=== PATIENT | female | born 1945 | race Caucasian/White ===

== ENCOUNTER 2017-11-04 08:00 | Observation (INO) ==
[2017-11-04 08:40] VITALS: BMI 40.9
[2017-11-04 09:06] VITALS: RESP 16
[2017-11-04] MEDS ORDERED: POLYETHYL GLYCOL 3350 17gm PACKET PO SCH (09:15)
--- NOTE | 2017-11-04 09:26 | Cardiology History & Physical ---
History of Present Illness Chief complaint: A Fib HPI: Meka is a 72 year old female who is well known to Dr. Bhatia with a history of CAD with stent to Cx in July of this year, PAD, Carotid stenosis, HTN, HLD, and DM, type II and recent Holter showed SR, SB, ST, HR 50-110s, frequent PACs, couplets, triplets and runs of A Fib with HR up to 140s. She is admitted for observation for antiarrhythmic therapy on Amiodarone today. Review of Systems - Constitutional Constitutional: Absent: chills, fatigue, fever(s) - EENMT Eyes: Absent: change in vision Balance: Absent: vertigo Mouth/Throat: Absent: sore throat - Cardiovascular Cardiovascular: Absent: chest pain, palpitations, syncope, dyspnea on exertion Vascular: Absent: pedal edema - Respiratory Respiratory: Absent: cough - Gastrointestinal Gastrointestinal: Absent: abdominal pain, diarrhea, nausea, vomiting - Genitourinary Genitourinary: Absent: dysuria - Integumentary/Breasts Integumentary: Absent: rash - Neurological Neurological: Absent: dizziness - Endocrine Endocrine: Absent: palpitations PFSH Patient Stated Medical History Migraine Yes: NO RECENTLY Peripheral Neuropathy Yes: BOTTOM OF FEET Transient Ischemic Attacks ( Yes TIA) Cataracts Yes: L. EYE STILL HAS CATARACTS Glaucoma Yes Hearing Loss Yes Angina Yes: chest tightness, NOT AFTER STENT PLACEMENT Cardiac Arrhythmia Yes: at. fib. 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 Coronary Stent 07/2017 Family History: Father - [place], age 54 Mother - Undefined heart disease - Social History Smoking status: Never smoker Substance use type: does not use Alcohol intake frequency: does not drink Household members: none Current occupational status: employed Current residence: Apartment/Private Home Medications Home Medications Medication Instructions Recorded Confirmed Type Atorvastatin [Lipitor] 80 mg PO HS #0 03/15/12 11/04/17 History Insulin Glargine,Hum.rec.anlog 40 u SQ 1130,2330 #0 03/15/12 11/04/17 History [Lantus] Levothyroxine Sodium [Synthroid] 75 mcg PO DAILY #0 03/15/12 11/04/17 History Allopurinol [Zyloprim] 1 tab PO 2330 06/01/17 11/04/17 History Calcitriol [Rocaltrol] 1 cap PO QMWF 06/01/17 11/04/17 History Dabigatran [Pradaxa] 1 cap PO 1130,2330 06/01/17 11/04/17 History PEG 3350 17gm PACKET [Miralax] 1 unit PO 3XW 06/01/17 11/04/17 History Cholecalciferol (Vitamin D3) 1 cap PO 1500 08/10/17 11/04/17 History [Vitamin D3] Isosorbide Mononitrate ER [Imdur] 30 mg PO DAILY 08/10/17 11/04/17 History Mupirocin Ointment [Bactroban 1 applicatio TOP DAILY PRN 08/12/17 11/04/17 History Ointmment] Torsemide 10 mg PO DAILY 08/20/17 11/04/17 History Humalog KwikPen (insulin lispro) 25 unit SQ TIDWM 40 Days ml 08/27/17 11/04/17 History 100 unit/mL SQ PEN Tylenol Arthritis 650 mg 650 mg PO Q8H PRN 08/27/17 11/03/17 History tablet,extended release ferrous sulfate 325 mg (65 mg 325 mg PO 1500 tab 08/27/17 11/04/17 History iron) tablet glucosamine-chondroitin 2 tab PO 1500 08/27/17 11/04/17 History multivitamin capsule 1 cap PO DAILY cap 08/27/17 11/03/17 History Fish Oil/Dha/Epa [Fish Oil 1,200 3 cap PO 1500 11/03/17 11/04/17 History mg Fish Oil] Pantoprazole Sodium [Protonix] 40 mg PO DAILY 11/03/17 11/04/17 History Tramadol [Ultram] 1 tab PO BID 11/03/17 11/04/17 History Allergies Allergy/AdvReac Type Severity Reaction Status Date / Time fenofibrate [From Tricor] Allergy Verified 11/04/17 08:35 metformin Allergy Verified 11/04/17 08:35 feathers AdvReac Mild Headache Verified 11/04/17 08:35 cat dander AdvReac Verified 11/04/17 08:35 wilda AdvReac Verified 11/04/17 08:35 pioglitazone AdvReac Verified 11/04/17 08:35 Exam Vital signs: Temperature 97.6 F 11/04/17 08:30 Pulse Rate 85 11/04/17 09:03 Respiratory Rate 16 11/04/17 08:30 Blood Pressure 132/77 11/04/17 08:30 Pulse Oximetry 93 11/04/17 08:30 - Constitutional no acute distress, well nourished, cooperative - Routine HEENT Exam Head: Present: normocephalic ENT: Present: mucous membranes moist - Routine Neck Exam Absent: JVD, carotid bruit - Routine Chest/Breast/Axilla Exam Chest wall: Absent: tenderness - Routine Respiratory Exam Absent: CTA bilaterally, rales, wheezes - Routine Cardiovascular Exam Present: RRR, murmur (II?). Absent: JVD - Routine Abdominal Exam Absent: soft, normoactive bowel sounds - Routine Extremities Exam Present: no edema - Routine Skin Exam Present: intact, dry, warm - Routine Neurological Exam Present: alert, oriented X3 - Routine Psychiatric Exam Present: normal affect, normal thought process Results 11/04/17 08:27 11/05/17 04:08 Cardiac Enzymes 11/04/17 Range/Units 08:27 AST 19 (14-36) U/L CBC 11/04/17 Range/Units 08:27 WBC 6.0 (4.5-11.0) T/MM3 RBC 4.57 (4.00-5.20) M/MM3 Hgb 12.7 (12-16) GM/DL Hct 39.5 (36-46) % Plt Count 234 (130-400) T/MM3 Neut # (Auto) 3.2 (1.8-7.7) T/MM3 Lymph # (Auto) 1.8 (1-4.8) T/MM3 [place] # (Auto) 0.5 (0-0.8) T/MM3 Eos # (Auto) 0.4 (0-0.5) T/MM3 Baso # (Auto) 0.1 (0-0.2) T/MM3 Comprehensive Metabolic Panel 11/04/17 Range/Units 08:27 Sodium 142 (134-144) MEQ/L Potassium 3.3 L (3.6-5) MEQ/L Chloride 106 (98-107) MEQ/L Carbon Dioxide 25 (22-30) MEQ/L BUN 29.0 H (7-17) MG/DL Creatinine 1.6 H (0.7-1.2) MG/DL Glucose 154 H (65-110) MG/DL Calcium 9.2 (8.4-10.2) MG/DL AST 19 (14-36) U/L ALT 29 (9-52) U/L Alkaline Phosphatase 75 (38-126) U/L Total Protein 6.4 (6.3-8.2) G/DL Albumin 3.8 (3.5-5.0) G/DL Intake and Output 11/03/17 11/04/17 11/04/17 22:59 06:59 14:59 Other: Weight 216 lb 11.43 oz Patient Weight 11/05/17 06:59 Weight 216 lb 11.43 oz EKG interpretations - EKG EKG results cardiology: sinus rhythm - Dysrhythmias Supraventricular dysrhythmia: junctional premature complexes Hospital Course This is a general summary of the patient's hospital course. For more details refer to the complete medical record. Time spent with patient: 25 - 35 minutes DVT Prophylaxis: Pradaxa Assessment and Plan - Attestation Attestation Narrative: 11/06/17 14:11 Recommendation After examining the patient I agree with the above assessment. I am involved in the formulation of the patient's plan of care. - Assessment and Plan (1) Paroxysmal atrial fibrillation Status: Chronic recent Holter showed SR, SB, ST, HR 50-110s, frequent PACs, couplets, triplets and runs of A Fib with HR up to 140s. She is admitted for observation for antiarrhythmic therapy on Amiodarone today. (2) Atherosclerotic heart disease of [place] coronary artery without angina pectoris Status: Chronic Continue antiplatelet therapy (3) Peripheral vascular disease Status: Chronic (4) Occlusion and stenosis of bilateral carotid arteries Status: Chronic (5) Essential (primary) hypertension Status: Chronic (6) Mixed hyperlipidemia Status: Chronic takes Lipitor, PCP manages (7) Type 2 diabetes mellitus without complications Status: Chronic PCP manages
[2017-11-04] MEDS: AMIODARONE 200 MG TABLET PO SCH ×2 (09:27→21:15)
[2017-11-04] MEDS: DABIGATRAN 150 MG PO SCH ×2 (11:10→23:43)
[2017-11-04] MEDS ORDERED: LANTUS SQ SCH (11:30)
[2017-11-04] MEDS: CALCITRIOL 0.25 MCG PO SCH ×2 (12:37→23:40)
[2017-11-04] MEDS: HUMALOG KWIK SQ SCH ×2 (12:38→18:18)
[2017-11-04] MEDS ORDERED: INFLUENZA VAC High Dose 2017-18 (Fluzone HD*) (>=65yo) 0.5ml IM ONE (12:38)
[2017-11-04] MEDS ORDERED: INFLUENZA VAC. INJ. ADMIN CHARGE INJ ONE (12:56)
[2017-11-04] MEDS ORDERED: GLUCOSAMINE/CHONDROITIN 500 MG/400 MG CAPSULE PO SCH (15:00)
[2017-11-04] MEDS ORDERED: OMEGA-3 ACID ESTERS 1 GM CAPSULE PO SCH (15:00)
[2017-11-04] MEDS ORDERED: FERROUS SULFATE 324 MG TABLET PO SCH (15:00)
[2017-11-04] MEDS ORDERED: ATORVASTATIN 80 MG PO SCH (21:00)
[2017-11-04] MEDS ORDERED: GLUCOSE ORAL GEL 40% 37.5gm PO PRN (22:08)
[2017-11-04] MEDS ORDERED: DEXTROSE 50% SYRINGE 50ml (1 AMP) IVP PRN (22:08)
[2017-11-04] MEDS ORDERED: INSULIN GLARGINE 100unit/ml INJECTION SQ SCH (22:10)
[2017-11-04] MEDS ORDERED: POM ALLOPURINOL 100 MG TABLET PO SCH (23:30)
[2017-11-04] MEDS: TRAMADOL 50 MG PO SCH (23:39)
[2017-11-04 23:59] VITALS: TEMP 97.7
[2017-11-05] MEDS: POM LEVOTHYROXINE 75 MCG TABLET PO SCH ×2 (06:07→08:37)
[2017-11-05] MEDS ORDERED: POM PANTOPRAZOLE 40 MG TABLET PO SCH (06:30)
[2017-11-05] MEDS ORDERED: ISOSORBIDE MONONITRATE 30 MG PO SCH (07:00)
[2017-11-05 07:59] VITALS: BP 151/72; O2SAT 92
[2017-11-05 08:02] VITALS: PULSE 66
[2017-11-05] MEDS: AMIODARONE 200 MG TABLET PO SCH (08:34)
[2017-11-05] MEDS: TRAMADOL 50 MG PO SCH (08:36)
[2017-11-05] MEDS: HUMALOG KWIK SQ SCH (08:37)
[2017-11-05] MEDS ORDERED: TORSEMIDE 10 MG PO SCH (09:00)
[2017-11-05] MEDS ORDERED: MULTI-VITAMIN PLAIN TABLET PO SCH (09:00)
[2017-11-05] MEDS ORDERED: POM CLOPIDOGREL 75 MG TABLET PO SCH (09:00)
[2017-11-05] MEDS ORDERED: POM ASPIRIN *EC* 81 MG TABLET PO SCH (09:00)
[2017-11-05] MEDS: DABIGATRAN 150 MG PO SCH (11:04)
[2017-11-11] MEDS ORDERED: AMIODARONE 200 MG TABLET PO SCH (09:00)
== END 2017-11-05 11:30 | disposition home or self-care (01) ==
LOC: SRG
PROVIDERS: ADMIT Internal Medicine Cardiovascular Disease; ATTEND Internal Medicine Cardiovascular Disease

== ENCOUNTER 2018-05-29 11:46 | Inpatient (IN) ==
[2018-05-29] MEDS: SALINE FLUSH 10ml SYRINGE IVF PRN (12:25)
--- NOTE | 2018-05-29 12:29 | Emergency Department Report ---
General Adult HPI - General Chief complaint: Medical Emergency Stated complaint: weakness,elevated bs, confusion Time Seen by Provider: 05/29/18 12:15 Source: patient Mode of arrival: ambulatory Limitations: no limitations - History of Present Illness HPI narrative: 73 F presents to the emergency department with the chief complaint of generalized weakness and elevated blood sugars. Patient also notes that she did graze the back of her right shoulder on the door frame earlier today but denies falling and striking her head, neck pain, or loss of consciousness. She was at home when her symptoms began on Thursday. Pain in the posterior right shoulder is mild. It is dull. No radiation. She does note a small abrasion where she is tender as she bumped against the door frame last night. Symptoms have been persistent in nature since onset. No other complaints or associated symptoms at this time. Patient is normally ambulatory with a cane but is now requiring assistance. - Related Data Home Medications Medication Instructions Recorded Confirmed Atorvastatin [Lipitor] 80 mg PO HS #0 03/15/12 05/29/18 Insulin Glargine,Hum.rec.anlog 60 unit SQ BID #0 03/15/12 05/29/18 [Lantus] Allopurinol [Zyloprim] 100 mg PO HS 06/01/17 05/29/18 Calcitriol [Rocaltrol] 0.25 mcg PO QMWF 06/01/17 05/29/18 Dabigatran [Pradaxa] 150 mg PO BID 06/01/17 05/29/18 PEG 3350 17gm PACKET [Miralax] 17 gm PO Q2D 06/01/17 05/29/18 Cholecalciferol (Vitamin D3) 10,000 unit PO DAILY 08/10/17 05/29/18 [Vitamin D3] Isosorbide Mononitrate ER [Imdur] 30 mg PO DAILY 08/10/17 05/29/18 Mupirocin Ointment [Bactroban 1 applicatio TOP DAILY PRN 08/12/17 05/29/18 Ointmment] Torsemide 5 - 10 mg PO DAILY 08/20/17 05/29/18 Humalog KwikPen (insulin lispro) 25 unit SQ TIDWM 40 Days ml 08/27/17 05/29/18 100 unit/mL SQ PEN glucosamine-chondroitin 2 tab PO DAILY 08/27/17 05/29/18 multivitamin capsule 1 cap PO DAILY cap 08/27/17 05/29/18 Fish Oil/Dha/Epa [Fish Oil 1,200 3 cap PO DAILY 11/03/17 05/29/18 mg Fish Oil] Pantoprazole Sodium [Protonix] 40 mg PO DAILY 11/03/17 05/29/18 Tramadol [Ultram] 50 mg PO BID 11/03/17 05/29/18 Levothyroxine Sodium 88 mcg PO DAILY 01/05/18 05/29/18 Acetaminophen [Tylenol] 650 mg PO Q8H PRN 05/29/18 05/29/18 Baking Soda 1 tsp PO DAILY 05/29/18 05/29/18 Ferrous Sulfate [Iron] 325 mg PO DAILY 05/29/18 05/29/18 Previous Rx's Medication Instructions Recorded Aspirin *EC* [Ecotrin] 81 mg PO DAILY #30 tab 08/13/17 Clopidogrel [Plavix] 75 mg PO DAILY #30 tab 08/13/17 Amiodarone [Pacerone] 200 mg PO DAILY #30 tab 11/05/17 Allergies Allergy/AdvReac Type Severity Reaction Status Date / Time fenofibrate [From Tricor] Allergy Verified 05/29/18 12:18 metformin Allergy Verified 05/29/18 12:18 feathers AdvReac Mild Headache Verified 05/29/18 12:18 cat dander AdvReac Verified 05/29/18 12:18 wilda AdvReac Verified 05/29/18 12:18 pioglitazone AdvReac Verified 05/29/18 12:18 Review of Systems Constitutional: Reports: weakness. Denies: fever Eyes: Denies: eye pain, vision change ENT: Denies: ear pain, throat pain Cardiovascular: Denies: chest pain, palpitations Respiratory: Denies: cough, dyspnea Gastrointestinal: Denies: abdominal pain, nausea, vomiting, diarrhea Genitourinary: Denies: dysuria, frequency Musculoskeletal: Denies: back pain, arthralgia Integumentary: Denies: erythema, rash Neurological: Denies: headache, numbness, paresthesias Psychiatric: Denies: anxiety, depression Endocrine: Denies: polydipsia, polyuria Hematological/Lymphatic: Denies: easy bruising, lymphadenopathy Allergic/Immunologic: Denies: facial swelling, urticaria PFSH Patient Stated Medical History Migraine Yes: NO RECENTLY Peripheral Neuropathy Yes: BOTTOM OF FEET Transient Ischemic Attacks ( Yes TIA) Cataracts Yes Glaucoma Yes Hearing Loss Yes Angina Yes: chest tightness, NOT AFTER STENT PLACEMENT Cardiac Arrhythmia Yes: at. fib. 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 left kidney Anemia Yes: NOT RECENTLY Clotting Problems Yes: takes pradaxa Osteoarthritis Yes Cellulitis Yes: BLE SEVERAL YEARS AGO Anesthesia Reactions Yes Post Menopausal Yes Surgical History: Colonoscopy. Coronary Stent 07/2017 Family History: Reviewed and Noncontributory. - Social History Smoking status: Never smoker second hand exposure: No Substance use type: does not use Alcohol intake frequency: does not drink Household members: none Current occupational status: employed Does patient use chewing tobacco?: No Current residence: Apartment/Private Home Physical Exam - Limitations Limitations: no limitations - General General appearance: alert, in no apparent distress - Normal Exams: Head:: Normocephalic without trauma Eyes:: Pupils are PERRLA w/ EOMI, No scleral icterus, irritation, or foreign bodies noted ENMT:: No facial trauma, nasal exudates, pharyngeal erythema, or exudates are noted Dental: No fractured, loose, or missing teeth noted Neck:: Full range of motion, without adenopathy, JVD, bruits or thyromegaly Chest/Respirations:: Clear all allred, with good airflow, and symmetry bilaterally Cardiovascular:: Regular rate and rhythm, without murmur or gallop, Pulses 2+ all extremities, capillary refill, <2 seconds all extremities Abdomen:: Bowel sounds positive, soft, non-tender, non-distended, no hepatosplenomegaly, masses or bruits noted Lymphatic:: No lymphadenopathy, or lymphedema noted Musculoskeletal:: No tenderness (right shoulder - slightly decreased range of motion secondary to pain. Generalized tenderness to palpation. No focal bony tenderness. Pulses intact. Sensation intact. capillary refill less than 2. Skin is intact. No erythema or edema. No other tenderness in the right upper extremity. All other extremities are unremarkable.), or deformity noted, good range of motion, all extremities Integumentary:: No rashes, hives, or bruising noted, hair and nails, without abnormality Neurological:: Patient is alert, and oriented, cranial nerves, motor/sensory/ cerebellar, exams w/o gross deficits, to observation Psychiatric:: Patient exhibits, appropriate attention, emotion and affect Course Vital Signs Temperature 98.3 F 05/29/18 11:48 Pulse Rate 82 05/29/18 11:48 Respiratory Rate 20 05/29/18 11:48 Blood Pressure 194/82 H 05/29/18 11:48 Pulse Oximetry 95 05/29/18 11:48 Temperature 98.3 F 05/29/18 11:48 Pulse Rate 82 05/29/18 11:48 Respiratory Rate 20 05/29/18 11:48 Blood Pressure 194/82 H 05/29/18 11:48 Pulse Oximetry 95 05/29/18 11:48 Medical Decision Making - [facility] Narrative Medical decision making narrative: Labs / imaging were discussed in detail with the patient and family and questions are answered. Patient was given 500 mL normal saline intravenously times one. Patient declined offered analgesic pain medication in the ED. Patient was given Rocephin 1 g intravenously after blood cultures and lactic acid were obtained at 1426 when sepsis was considered. Patient was never hypotensive in the emergency department and her lactic acid was less than 4. Patient is discussed with Dr. Cardenas from the hospitalist service and admitted to her service in improved condition. Patient and family are in agreement with the current plan of management. She is admitted to the hospital in improved condition. No further orders from accepting physician who is in agreement with the current plan of management. - Differential Diagnosis UTI, pneumonia, metabolic disorder, dehydration - Lab Data Result diagrams: 05/29/18 12:38 05/29/18 12:38 Lab Results 05/29/18 Range/Units 11:51 Glucometer 251 (65-110) mg/dL - Radiology Data CT HEAD - No acute processes. CXR - No obvious acute processes. Right shoulder x-ray - no obvious acute fracture or dislocation. - EKG Data EKG #1 EKG results narrative: Sinus rhythm. 77 bpm. No STEMI. Disposition Clinical Impression: JOHAN (acute kidney injury) UTI (urinary tract infection) Qualifiers: Urinary tract infection type: acute cystitis Hematuria presence: with hematuria Qualified Code(s): N30.01 - Acute cystitis with hematuria Disposition: To [facility] [place] [facility] [place] Care Condition: Improved Time of Disposition: 14:05 (Admit. Dr. Cardenas. ) - Seen By: physician
--- OUTSIDE RECORDS SUMMARY | 2018-05-29 12:29 | External Medical Summary | Referral Summary ---
:1945 Author Organization [facility] Address [address] [place] [address] Care Team Providers Name Role Phone Crow Richmond Primary Care Physician Encounter VC Date(s): 01/14/17 - 01/14/17 [facility] [address] [place] [address]- us Discharge Diagnosis: Multiple gastric polyps Discharge Disposition: 01-Home or Self Care Attending Physician: Mari Zhao MD Admitting Physician: Mari Zhao MD Vital Signs Most recent to oldest [Reference Range]: 1 Temperature Oral [35.8-37.3 degC] 36.4 degC (01/14/17 12:39 PM) Peripheral Pulse Rate [60-100 bpm] 60 bpm (01/14/17 12:39 PM) Respiratory Rate [14-20 br/min] 18 br/min (01/14/17 12:39 PM) Blood Pressure [90-140/60-90 mmHg] 118/75 mmHg (01/14/17 12:39 PM) SpO2 99 % (01/14/17 12:39 PM) Problem List Condition Effective Dates Status Health Status Informant Acute pain(Confirmed) < 05/13/15 Resolved Acute renal failure with severe 2013 Resolved metabolic acidosis(Confirmed) Adult-onset obesity(Confirmed) Active At risk for infection(Confirmed)1 Active Benign essential hypertension Active (disorder)(Confirmed) Hematuria(Confirmed) Active Cardiac arrest(Confirmed) Active patient Cataracts(Confirmed) 2006 Active Cellulitis of leg, right(Confirmed) Active Cervical radiculopathy(Confirmed) Active Chronic kidney disease Active (CKD)(Confirmed) Coronary arteriosclerosis Active (disorder)(Confirmed) Coronary artery disease(Confirmed)2 2/7/11 Active Diabetes(Confirmed) Active Diabetic renal disease Active (disorder)(Confirmed) Eosinophilia(Confirmed)3 Active Family history of rectal Active cancer(Confirmed)4 Family history of premature Active CAD(Confirmed)5 GERD without esophagitis(Confirmed) Active High cholesterol(Confirmed)6 Active Ocular Hypertension(Confirmed)7 Active Hypertension/High BP(Confirmed)8 Active Hyperuricemia(Confirmed) Active Adult hypothyroidism(Confirmed) Active Impaired skin integrity(Confirmed)9 Active Intraductal papilloma(Confirmed) 2004 Resolved Chronic edema(Confirmed) Active Morbid obesity(Confirmed) Active patient Morbid obesity(Confirmed) Active patient Morbid obesity(Confirmed) Active patient Obesity (disorder)(Confirmed) Active Osteopenia(Confirmed)10 2005 Active Overweight(Confirmed) Active Atrial fibrillation(Confirmed) Active patient Venous insufficiency(Confirmed) Active Abdominal pain, RUQ(Confirmed) Active Stroke/TIA(Confirmed)11 2007 Active Stroke/TIA(Confirmed)12 2009 Active Tissue perfusion < 05/13/15 Resolved alteration(Confirmed)13 Tubular adenoma on 2003 Active colonoscopy(Confirmed)14 Type 2 diabetes(Confirmed)15 1992 Active 1Problem added automatically by system based on initiation of At Risk for Infection in Nutrition Planof [id number] RCA; stented x 2; first diagonal of LAD with 90-95 stenosis. On 01/24/11 at [facility], diagonal PTCA and LAD distal PTCA. 5-12 Stent to circumflex. CORONARY ATHERSCL UNSPEC VESSEL. See Conversion Document.3See Conversion Document.4See Conversion Document.5See Conversion Document.6PURE HYPERCHOLESTEROLEMIA. See Conversion Document.7See Conversion Document.8BENIGN ESSENTIAL HYPERTENSION. See Conversion Document.9Problem added automatically by system based on initiation of Impaired Skin Integrity Plan of [id number] BONE & CARTILAGE UNSP. See Conversion Document.11See Conversion Document.12CORONARY ATHERSCL UNSPEC VESSEL. See Conversion Document.13Problem added automatically by system based on initiation of Tissue Perfusion Cerebral Plan of [id number] Conversion Document.15DIABETES W/O COMPLICATION TYPEII. See Conversion Document. Allergies, Adverse Reactions, Alerts Substance Reaction Severity Status Actos1 Adverse reaction Active Heath Adverse Reaction Medium Active Facial swelling metFORMIN caused increase in creatinin Active stopped - renal insufficiency sulfa drugs Itching Active TriCor2 Intolerance Active 1"bad frame of mind"2per chart review- "TriCor stopped in Oct 2008 because of increasing renal insufficiency with eosinophilia" (documented allergy 11/28/[address] Loza) Medications allopurinol 100 mg oral tablet See Instructions, TAKE 1 TABLET BY MOUTH DAILY, # 90 tabs, eRx: [facility] Start Date: 12/18/16 Status: Orderedatorvastatin 80 mg oral tablet See Instructions, TAKE 1 TABLET BY MOUTH DAILY, # 30 tabs, eRx: [facility] Start Date: 01/07/17 Status: OrderedB-D PEN NDL LARISA [id number] GRN See Instructions, USE DIRECTED, # 100 unknown unit, 3 Refill(s), ANDRIY, eRx: [facility] , USE DIRECTED Start Date: 10/02/14 Status: Orderedbaking soda baking soda, 1/2 teaspoon, Oral, Daily, 0 Refill(s) Start Date: 08/23/15 Status: OrderedFeosol 325 mg (65 mg elemental iron) oral tablet 1 tabs, Oral, Daily, 0 Refill(s) Start Date: 04/25/14 Status: OrderedGlucometer Lancets (DME) DME Item Ultra Thin Lancets may be ultra soft. Check blood sugar QID 3 times weekly., See Instructions, # 1 Each, 0 Refill(s), Supply Start Date: 04/25/14 Status: Orderedglucosamine 500 mg oral capsule 1 caps, Oral, Daily, # 30 caps, 0 Refill(s) Start Date: 04/25/14 Status: OrderedHumaLOG KwikPen 100 units/mL subcutaneous solution See Instructions, INJECT 25 UNITS UNDER THE SKIN THREE TIMES DAILY BEFORE MEALS , # 60 mL, 1 Refill(s), Pharmacy: [facility] , INJECT 25 UNITS UNDER THE SKIN THREE TIMES DAILY BEFORE MEALS Start Date: 12/18/16 Status: OrderedInsulin Syringe (DME) DME Item 31G x5/1 use with insulin five times per day., See Instructions, # 1 Each, 0 Refill(s), Supply Start Date: 04/25/14 Status: OrderedLantus Solostar Pen 100 units/mL subcutaneous solution See Instructions, INJECT 45 UNITS SUBCUTANEOUSLY TWICE DAILY, # 45 mL, ANDRIY, eRx : [facility] , INJECT 45 UNITS SUBCUTANEOUSLY TWICE DAILY Start Date: 10/18/16 Status: Orderedlevothyroxine 75 mcg (0.075 mg) oral tablet See Instructions, TAKE 1 TABLET BY MOUTH EVERY DAY, # 60 tabs, 3 Refill(s), eRx : [facility] , TAKE 1 TABLET BY MOUTH EVERY DAY Start Date: 09/22/16 Status: Orderedmupirocin 2% topical ointment 1 bryce, Topical, BID, # 22 g, 0 Refill(s), Pharmacy: [facility] Start Date: 11/30/15 Status: Orderednitroglycerin 0.4 mg sublingual spray 1 sprays, SubLingual, q5min, as needed for chest pain, # 12 g, 0 Refill(s) Start Date: 10/03/15 Status: Orderedomega-3 polyunsaturated fatty acids oral capsule 1 caps, Oral, Daily, # 100 caps, 0 Refill(s) Start Date: 04/25/14 Status: OrderedOne Touch Ultra Test Strips See Instructions, TEST BLOOD SUGARS FOUR TIME DAILY THREE DAYS A WEEK, # 100 unknown unit, 3 Refill(s[email or web address] TEST BLOOD SUGARS FOUR TIME DAILY THREE DAYS A WEEK Start Date: 10/02/14 Status: Orderedpantoprazole 40 mg oral delayed release tablet See Instructions, TAKE 1 TABLET BY MOUTH EVERY DAY, # 90 tabs, [email or web address] , TAKE1 TABLET BY MOUTH EVERY DAY Start Date: 10/08/16 Status: OrderedPradaxa 150 mg oral capsule 1 caps, Oral, BID Start Date: 03/08/15 Status: OrderedTylenol Regular Strength 325 mg oral tablet 1 tabs, Oral, q4hr, 0 Refill(s) Start Date: 04/25/14 Status: OrderedVitamin D with Minerals oral tablet 1 tabs, Oral, Daily, # 30 tabs, 0 Refill(s) Start Date: 04/25/14 Status: OrderedVitamin D3 1 QD, 0 Refill(s) Start Date: 11/23/15 Status: Ordered Results Chemistry Most recent to oldest [Reference Range]: 1 Blood Glucose, Capillary [74-106 mg/dL] 293 mg/dL *HI* (01/14/17 12:53 PM) Immunizations Given and Recorded Vaccine Date Status Refusal Reason tetanus/diphth/pertuss (Tdap) adult/adol 09/16/12 Recorded hepatitis B adult vaccine 03/14/05 Given hepatitis B adult vaccine 08/21/04 Given hepatitis B adult vaccine 06/26/04 Given influenza virus vaccine, inactivated 10/03/16 Given influenza virus vaccine, inactivated 08/20/15 Given influenza virus vaccine, inactivated1 08/30/14 Recorded influenza virus vaccine, live 10/20/13 Given influenza virus vaccine, live 09/16/12 Given influenza virus vaccine, live 08/20/11 Given influenza virus vaccine, live 08/28/10 Given influenza virus vaccine, live 08/28/08 Given influenza virus vaccine, live 09/02/06 Given pneumococcal 13-valent conjugate vaccine 09/13/14 Given pneumococcal 23-polyvalent vaccine 10/09/10 Recorded pneumococcal 23-polyvalent vaccine 09/28/98 Recorded tetanus/diphtheria/pertussis, acel(Tdap) 01/25/07 Recorded tetanus-diphth toxoids (Td) adult/adol 05/12/98 Given zoster vaccine live 10/20/13 Given 1Result Comment: [08/30/2014] See scanned document Procedures Procedure Date Related Diagnosis Body Site Esophagogastroduodenoscopy 01/14/17 Colonoscopy 11/16/15 Hospital admission1 2012 COLONOSCOPY FAMILY HX; HX POLYPS2 06/03/10 LAPAROSCOPIC CHOLECYSTECTOMY WITH CHOLANGIOGRAM3, 04/26/10 4 Cholecystectomy 2010 Cataract right 21.0 [id number] S# [id number] 05/01/09 Cataract extraction 2009 Excision - intaductal papiloma left breast 2005 Cardiac catheterization, left heart6 Excision of 4 teeth Excision of 4 teeth 1SOA, Acute renal failure with severe metabolic acidosis.2See Conversion Document.3See Conversion Document.4CHOLELITHIASIS.5See Conversion Document.6has had several stents placed after heart attack in 2010 Social History Social History Type Response Smoking Status Never smoker Assessment and Plan Extracted from: Title: Office Visit Note Author: Mari Zhao MD Date: 01/14/17 Assessment/Plan 1.Multiple gastric polyps The EGD procedure, indication, and conscious sedation have been explained. The possible risks may include but not limited to bleeding, pain, infection, missed lesions, medication reaction,perf oration of her GI tract which may require surgery, cardiorespiratory arrest and . Her questions have been answered.
--- OUTSIDE RECORDS SUMMARY | 2018-05-29 12:29 | External Medical Summary | Referral Summary ---
:1945 Author Organization [facility] Address [address] [place] [address] Care Team Providers Name Role Phone Crow Richmond Primary Care Physician Encounter VC Date(s): 07/01/17 - 07/01/17 [facility] [address] [place] [address]- [place] Discharge Diagnosis: Renal cyst Discharge Disposition: 01-Home or Self Care Attending Physician: Camden Rivera MD Admitting Physician: Camden Rivera MD Vital Signs Most recent to oldest [Reference Range]: 1 Blood Pressure [90-140/60-90 mmHg] 102/50 mmHg (07/01/17 1:10 PM) Problem List Condition Effective Dates Status Health Status Informant Acquired renal cyst(Confirmed) Active Acute pain(Confirmed) < 05/13/15 Resolved Acute renal failure with severe 2013 Resolved metabolic acidosis(Confirmed) Adult-onset obesity(Confirmed) Active At risk for infection(Confirmed)1 Active Benign essential hypertension Active (disorder)(Confirmed) Hematuria(Confirmed) Active Cardiac arrest(Confirmed) Active patient Cataracts(Confirmed) 2006 Active Cellulitis of leg, right(Confirmed) Active Cervical radiculopathy(Confirmed) Active Chronic kidney disease Active (CKD)(Confirmed) Coronary arteriosclerosis Active (disorder)(Confirmed) Coronary artery disease(Confirmed)2 12/23/10 Active Diabetes(Confirmed) Active Diabetic renal disease Active (disorder)(Confirmed) Eosinophilia(Confirmed)3 Active Family history of rectal Active cancer(Confirmed)4 Family history of premature Active CAD(Confirmed)5 Gastric polyps(Confirmed) Active GERD without esophagitis(Confirmed) Active High cholesterol(Confirmed)6 Active [...] At Risk for Infection in Nutrition Planof [id number] RCA; stented x 2; first diagonal of LAD with 90-95 stenosis. On 01/24/11 at [facility], diagonal PTCA and LAD distal PTCA. 03-16-12 Stent to circumflex. CORONARY ATHERSCL UNSPEC VESSEL. See Conversion Document.3See Conversion Document.4See Conversion Document.5See Conversion Document.6PURE HYPERCHOLESTEROLEMIA. See Conversion Document.7See Conversion Document.8BENIGN ESSENTIAL HYPERTENSION. See Conversion Document.9Problem added automatically by system based on initiation of Impaired Skin Integrity Plan of [id number] BONE & CARTILAGE UNSP. See Conversion Document.11See Conversion Document.12CORONARY ATHERSCL UNSPEC VESSEL. See Conversion Document.13Problem added automatically by system based on initiation of Tissue Perfusion Cerebral Plan of [id number] Conversion Document.15DIABETES W/O COMPLICATION TYPEII. See Conversion [...] BY MOUTH DAILY, # 30 tabs, eRx: [facility] [id number] Start Date: 06/30/17 Status: OrderedALLOPURINOL 100MG TABLETS See Instructions, TAKE 1 TABLET BY MOUTH DAILY, # 30 tabs, eRx: [facility] , TAKE 1 TABLET BY MOUTH DAILY Start Date: 03/25/17 Status: Orderedatorvastatin 80 mg oral tablet See Instructions, TAKE 1 TABLET BY MOUTH DAILY, # 30 tabs, eRx: [facility] Start Date: 01/07/17 Status: OrderedB-D PEN NDL LARISA [id number]() GRN See Instructions, USE DIRECTED, # 100 unknown unit, 3 Refill(s), ANDRIY, eRx: [facility] , USE DIRECTED Start Date: 10/02/14 Status: Orderedbaking soda baking soda, 1/2 teaspoon, Oral, Daily, 0 Refill(s) Start Date: 08/23/15 Status: Orderedcalcitriol 0.25 mcg oral capsule mcg caps, Oral, Daily, 0 Refill(s) Start Date: 06/18/17 Status: OrderedFeosol 325 mg (65 mg elemental [...] KwikPen 100 units/mL subcutaneous solution See Instructions, 35-35-35, # 60 mL, 1 Refill(s), [facility]: [facility] Start Date: 12/18/16 Status: OrderedInsulin Syringe (DME) DME Item 31G x5/1 use with insulin five times per day., See Instructions, # 1 Each, 0 Refill(s), Supply Start Date: 04/25/14 Status: Orderedisosorbide mononitrate 30 mg oral tablet, extended release 30 mg 1 tabs, Oral, qAM, 0 Refill(s) Start Date: 07/01/17 Status: OrderedLantus Solostar Pen 100 units/mL subcutaneous solution See Instructions, INJECT 45 UNITS SUBCUTANEOUSLY TWICE DAILY, # 45 mL, ANDRIY, eRx : [facility] Start Date: 10/18/16 Status: Orderedlevothyroxine 75 mcg (0.075 mg) oral tablet See Instructions, TAKE 1 TABLET BY MOUTH EVERY DAY, # 60 tabs, 3 Refill(s), eRx : [facility] , TAKE 1 TABLET BY MOUTH EVERY DAY Start Date: 09/22/16 Status: Orderedmupirocin 2% topical ointment 1 bryce, Topical, BID, # 22 g, 0 Refill(s), Pharmacy: [facility] Start Date: 11/30/15 Status: Orderednitroglycerin 0.4 mg sublingual spray 1 sprays, SubLingual, q5min, as needed for chest pain, # 12 g, 0 Refill(s) Start Date: 10/03/15 Status: Orderedomega-3 polyunsaturated fatty acids oral capsule 1 caps, Oral, Daily, # 100 caps, 0 Refill(s) Start Date: 04/25/14 Status: OrderedOne Touch Ultra Test Strips One Touch Ultra Test Strips, See Instructions, Use to test blood sugar QID on 3 days of each week.DX: E11.9, # 100 Each, 0 Refill(s), Pharmacy: [facility] , Use to test blood sugar QID on 3 days of each week. ; DX: E11.9 Start Date: 06/05/17 Status: Orderedpantoprazole 40 mg oral delayed release tablet See Instructions, TAKE 1 TABLET BY MOUTH EVERY DAY, # 90 tabs, eRx: [facility] Start Date: 04/24/17 Status: OrderedPradaxa 150 mg oral capsule 1 caps, Oral, BID Start Date: 03/08/15 Status: Orderedtorsemide 5 mg oral tablet 5 mg 1 tabs, Oral, Daily, or 1/2 of 10 mg tab, 0 Refill(s) Start Date: 06/18/17 Status: OrderedTylenol Regular Strength 325 mg oral tablet 1 tabs, Oral, q4hr, 0 Refill(s) Start Date: 04/25/14 Status: OrderedVitamin D with Minerals oral tablet 1 tabs, Oral, Daily, # 30 tabs, 0 Refill(s) Start Date: 04/25/14 Status: OrderedVitamin D3 1 QD, 0 Refill(s) Start Date: 11/23/15 Status: Ordered Immunizations Given and Recorded Vaccine Date Status Refusal Reason influenza virus vaccine, inactivated 10/03/16 Given influenza virus vaccine, inactivated 08/20/15 Given influenza virus vaccine, inactivated1 08/30/14 Recorded pneumococcal 13-valent conjugate vaccine 09/13/14 Given zoster vaccine live 10/20/13 Given influenza virus vaccine, live 10/20/13 Given influenza virus vaccine, live 09/16/12 Given influenza virus vaccine, live 08/20/11 Given influenza virus vaccine, live 08/28/10 Given influenza virus vaccine, live 08/28/08 Given influenza virus vaccine, live 09/02/06 Given tetanus/diphth/pertuss (Tdap) adult/adol 09/16/12 Recorded pneumococcal 23-polyvalent vaccine 10/09/10 Recorded pneumococcal 23-polyvalent vaccine 09/28/98 Recorded tetanus/diphtheria/pertussis, acel(Tdap) 01/25/07 Recorded hepatitis B adult vaccine 03/14/05 Given hepatitis B adult vaccine 08/21/04 Given hepatitis B adult vaccine 06/26/04 Given tetanus-diphth toxoids (Td) adult/adol 05/12/98 Given 1Result Comment: [08/30/2014] See scanned document Procedures Procedure Date Related Diagnosis Body Site Esophagogastroduodenoscopy 01/14/17 Colonoscopy 11/16/15 Hospital admission1 2012 COLONOSCOPY FAMILY HX; HX POLYPS2 06/03/10 LAPAROSCOPIC CHOLECYSTECTOMY WITH CHOLANGIOGRAM3, 04/26/10 4 Cholecystectomy 2010 Cataract right 21.0 ZCB00 S# [id number] 05/01/09 Cataract extraction 2009 Excision - intaductal [...] Extracted from: Title: Office Visit Note Author: Camden Rivera MD Date: 07/01/17 1.Renal cyst Ordered: Office Visit Level 3 Est 84204 US Retroperitoneal Complete
--- OUTSIDE RECORDS SUMMARY | 2018-05-29 12:29 | External Medical Summary | Referral Summary ---
:1945 Author Organization [facility] [place] [address] Care Team Providers Name Role Phone Crow Richmond Primary Care Physician Encounter Date(s): 09/10/17 - 09/10/17 [facility] [address] [place] [phone]- [place] Discharge Diagnosis: Pain of left breast Discharge Disposition: 01-Home or Self Care Attending Physician: Jamila Sandoval PA-C Admitting Physician: Jamila Sandoval PA-C Vital Signs Most recent to oldest [Reference Range]: 1 Peripheral Pulse Rate [60-100 bpm] 88 bpm (09/10/17 10:05 AM) Blood Pressure [90-140/60-90 mmHg] 146/90 mmHg *HI* (09/10/17 10:05 AM) Problem List Condition Effective Dates Status Health [...] At Risk for Infection in Nutrition Planof [id number] RCA; stented x 2; first diagonal of LAD with 90-95 stenosis. On 01/24/11 at [facility], diagonal PTCA and LAD distal PTCA. 03-16-12 Stent to circumflex. CORONARY ATHERSCL UNSPEC VESSEL. See Conversion Document.3See Conversion Document.4See Conversion Document.5See Conversion Document.6PURE HYPERCHOLESTEROLEMIA. See Conversion Document.7See Conversion Document.8BENIGN ESSENTIAL HYPERTENSION. See Conversion Document.9Problem added automatically by system based on initiation of Impaired Skin Integrity Plan of [id number] BONE & CARTILAGE UNSP. See Conversion Document.11See Conversion Document.12CORONARY ATHERSCL UNSPEC VESSEL. See Conversion Document.13Problem added automatically by system based on initiation of Tissue Perfusion Cerebral Plan of [id number] Conversion Document.15DIABETES W/O COMPLICATION TYPEII. See Conversion Document. Allergies, Adverse Reactions, Alerts Substance Reaction Severity Status sulfa drugs Itching Active Actos1 Adverse reaction Active TriCor2 Intolerance Active metFORMIN stopped - renal insufficiency Active caused increase in creatinin [place] Facial swelling Medium Active Adverse Reaction 1"bad frame of mind"2per chart review- "TriCor stopped in Oct 2008 because of increasing renal insufficiency with eosinophilia" (documented allergy 11/28/[address] Loza) Medications allopurinol 100 mg oral tablet See Instructions, TAKE 1 TABLET BY MOUTH DAILY, # 30 tabs, 1 Refill(s), eRx: [facility] Start Date: 09/07/17 Status: OrderedALLOPURINOL 100MG TABLETS See Instructions, TAKE 1 TABLET BY MOUTH DAILY, # 30 tabs, eRx: [facility] , TAKE 1 TABLET BY MOUTH DAILY Start Date: 03/25/17 Status: Orderedaspirin 81 mg oral tablet 81 mg 1 tabs, Oral, Daily, 0 Refill(s) Start Date: 09/10/17 Status: Orderedatorvastatin 80 mg oral tablet See Instructions, TAKE 1 TABLET BY MOUTH DAILY, # 90 tabs, eRx: [facility] Start Date: 07/03/17 Status: OrderedB-D PEN NDL LARISA [id number]() GRN See Instructions, USE DIRECTED, # 100 unknown unit, 3 Refill(s), ANDRIY, eRx: [facility] , USE DIRECTED Start Date: 10/02/14 Status: [...] KwikPen 100 units/mL subcutaneous solution See Instructions, 25-25, # 60 mL, 1 Refill(s), [facility] Start [facility]: 12/[facility]16 Status: OrderedInsulin Syringe (DME) DME Item 31G x5/1 use with insulin five times per day., See Instructions, # 1 Each, 0 Refill(s), Supply Start Date: 04/25/14 Status: Orderedisosorbide mononitrate 30 mg oral tablet, extended release 30 mg 1 tabs, Oral, qAM, 0 Refill(s) Start Date: 07/01/17 Status: OrderedLant Solostar Pen 100 units/mL subcutaneous solution See Instructions, INJECT 40 UNITS SUBCUTANEOUSLY TWICE DAILY, # 45 mL, ANDRIY, eRx : [facility] Start Date: 10/18/16 Status: Orderedlevothyroxine 75 mcg (0.075 mg) oral tablet See Instructions, TAKE 1 TABLET BY MOUTH EVERY DAY, # 60 tabs, 1 Refill(s), eRx : [facility] Start Date: 07/03/17 Status: Orderedmupirocin 2% topical ointment 1 bryce, Topical, BID, # 22 g, 0 Refill(s), Pharmacy: [facility] [id number] Start Date: 11/30/15 Status: Orderednitroglycerin 0.4 mg [...] E11.9, # 100 Each, 0 Refill(s), Pharmacy: [facility] , Use to test blood sugar QID on 3 days of each week. ; DX: E11.9 Start Date: 06/05/17 Status: Orderedpantoprazole 40 mg oral delayed release tablet See Instructions, TAKE 1 TABLET BY MOUTH EVERY DAY, # 90 tabs, eRx: [facility] Start Date: 09/01/17 Status: OrderedPlavix 75 mg oral tablet 75 mg 1 tabs, Oral, Daily, 0 Refill(s) Start Date: 09/10/17 Status: OrderedPradaxa 150 mg oral capsule 1 [...] Cholecystectomy 2010 Cataract right 21.0 ZCB00 S# [id number] 05/01/09 Cataract extraction 2009 Excision - intaductal papiloma left breast 2005 Cardiac catheterization, left heart6 Excision of 4 teeth Excision of 4 teeth 1SOA, Acute renal failure with severe metabolic acidosis.2See Conversion Document.3See Conversion Document.4CHOLELITHIASIS.5See Conversion Document.6has had several stents placed after heart attack in 2010 Social History Social History Type Response Smoking Status Never smoker entered on: 01/14/17 Assessment and Plan Extracted from: Title: Office Visit Note- L breast Author: Jamila Sandoval PA-C Date: pain Pain of left breast Advised pt to start with diagnostic mammogram of the L breast. Will do at [facility]. Order given to pt. She is to f/u after results return. May have pain d/t fibrocystic breast. Advised to decrease sodium and caffeine. Monitor with yearly mammograms. Ordered: Office Visit Level 3 Est 53357
--- OUTSIDE RECORDS SUMMARY | 2018-05-29 12:29 | External Medical Summary | Referral Summary ---
:1945 Author Organization [facility] [place] [id number] Care Team Providers Name Role Phone Crow Richmond Primary Care Physician Encounter [facility] [id number] Date(s): 06/18/17 - 06/18/17 [facility] [place] [phone] Discharge Diagnosis: Adult-onset obesity Discharge Diagnosis: Hyperuricemia Discharge Diagnosis: Chest pain Discharge Diagnosis: Chronic kidney disease (CKD) Discharge Diagnosis: Acquired renal cyst Discharge Diagnosis: Diabetes Discharge Diagnosis: Benign essential hypertension (disorder) Discharge Diagnosis: Coronary artery disease Discharge Diagnosis: Atrial fibrillation Discharge Diagnosis: Gastric polyps Discharge Diagnosis: Adult hypothyroidism Discharge Disposition: 01-Home or Self Care Attending Physician: Crow Richmond MD Admitting Physician: Crow Richmond MD Vital Signs Most recent to oldest [Reference Range]: 1 Blood Pressure [90-140/60-90 mmHg] 140/70 mmHg (06/18/17 10:30 AM) Problem List Condition Effective Dates Status Health Status Informant Acquired renal cyst(Confirmed) Active Acute pain(Confirmed) < 05/13/15 Resolved Acute renal failure with severe 2012 Resolved metabolic acidosis(Confirmed) Adult-onset obesity(Confirmed) Active At [...] At Risk for Infection in Nutrition Planof [id number] RCA; stented x 2; first diagonal of LAD with 90-95 stenosis. On 01/24/11 at [facility], diagonal PTCA and LAD distal PTCA. 03-16-12 Stent to circumflex. CORONARY ATHERSCL UNSPEC VESSEL. See Conversion Document.3See Conversion Document.4See Conversion Document.5See Conversion Document.6PURE HYPERCHOLESTEROLEMIA. See Conversion Document.7See Conversion Document.8BENIGN ESSENTIAL HYPERTENSION. See Conversion Document.9Problem added automatically by system based on initiation of Impaired Skin Integrity Plan of [id number] BONE & CARTILAGE UNSP. See Conversion Document.11See Conversion Document.12CORONARY ATHERSCL UNSPEC VESSEL. See Conversion Document.13Problem added automatically by system based on initiation of Tissue Perfusion Cerebral Plan of [id number] Conversion Document.15DIABETES W/O COMPLICATION TYPEII. See Conversion [...] BY MOUTH DAILY, # 30 tabs, eRx: [facility] Start Date: 06/02/17 Status: OrderedALLOPURINOL 100MG TABLETS See Instructions, TAKE 1 TABLET BY MOUTH DAILY, # 30 tabs, e[facility]: [facility] , TAKE 1 TABLET BY MOUTH DAILY Start Date: 03/25/17 Status: Orderedatorvastatin 80 mg oral tablet See Instructions, TAKE 1 TABLET BY MOUTH DAILY, # 30 tabs, eRx: [facility] Start Date: 01/07/17 Status: OrderedB-D PEN NDL LARISA [id number]() GRN See Instructions, USE DIRECTED, # 100 unknown unit, 3 Refill(s), ANDRIY, eRx: [facility] , USE DIRECTED Start Date: 10/02/14 Status: [...] 35-35-35, # 60 mL, 1 Refill(s), Pharmacy: [facility] Start Date: 12/18/16 Status: OrderedInsulin Syringe (DME) DME Item 31G x5/1 use with insulin five times per day., See Instructions, # 1 Each, 0 Refill(s), Supply Start Date: 04/25/14 Status: OrderedLantus Solostar Pen 100 units/mL subcutaneous solution See Instructions, INJECT 45 UNITS SUBCUTANEOUSLY TWICE DAILY, # 45 mL, ANDRIY, [facility] Start Date: 10/18/16 Status: Orderedlevothyroxine 75 mcg (0.075 mg) oral tablet See Instructions, TAKE 1 TABLET BY MOUTH EVERY DAY, # 60 tabs, 3 Refill(s), [facility] , TAKE 1 TABLET BY MOUTH EVERY DAY Start Date: 09/22/16 Status: Orderedmupirocin 2% topical ointment 1 bryce, Topical, BID, # 22 g, 0 Refill(s), [facility] Start Date: 11/30/15 Status: Orderednitroglycerin 0.4 mg [...] E11.9, # 100 Each, 0 Refill(s), [facility] [id number], Use to test blood sugar QID on 3 days of each week. ; DX: E11.9 Start Date: 06/05/17 Status: Orderedpantoprazole 40 mg oral delayed release tablet See Instructions, TAKE 1 TABLET BY MOUTH EVERY DAY, # 90 tabs, eRx: [facility] Start Date: 04/24/17 Status: OrderedPradaxa 150 mg [...] Most recent to oldest [Reference Range]: 1 Sodium Lvl [135-144 mEq/L] 140 mEq/L (06/18/17 11:25 AM) Potassium Lvl [3.5-5.2 mEq/L] 3.8 mEq/L (06/18/17 11:25 AM) Chloride [99-111 mEq/L] 104 mEq/L (06/18/17 11:25 AM) CO2 [22-31 mEq/L] 26 mEq/L (06/18/17 11:25 AM) AGAP [3-20 mEq/L] 10 mEq/L (06/18/17 11:25 AM) BUN [10-20 mg/dL] 42 mg/dL *HI* (06/18/17 11:25 AM) Glucose Lvl [70-99 mg/dL] 202 mg/dL *HI* (06/18/17 11:25 AM) Creatinine Lvl [0.57-1.11 mg/dL] 1.85 mg/dL *HI* (06/18/17 11:25 AM) eGFR [>60 mL/min] 27 mL/min 1 *ABN* (06/18/17 11:25 AM) Calcium Lvl [8.4-10.2 mg/dL] 9.6 mg/dL (06/18/17 11:25 AM) Albumin Lvl [3.4-4.8 gm/dL] 3.9 gm/dL (06/18/17 11:25 AM) Total Protein [6.0-7.6 gm/dL] 6.2 gm/dL (06/18/17 11:25 AM) Globulin [1.8-4.0 gm/dL] 2.3 gm/dL (06/18/17 11:25 AM) ALT [0-55 U/L] 17 U/L (06/18/17 11:25 AM) AST [5-34 U/L] 20 U/L (06/18/17 11:25 AM) Alk Phos [40-150 U/L] 106 U/L (06/18/17 11:25 AM) Bili Total [0.2-1.2 mg/dL] 0.6 mg/dL (06/18/17 11:25 AM) TSH with Reflex Free T4 [0.35-4.94] 2.55 (06/18/17 11:25 AM) Hgb A1c [4.1-5.6 %] 13.4 % *HI* (06/18/17 11:25 AM) eAvg Glucose 337.9 mg/dL (06/18/17 11:25 AM) 1Result Comment: Multiply eGFR results by 1.21 for race. Immunizations Given and Recorded Vaccine Date Status [...] Cholecystectomy 2010 Cataract right 21.0 ZCB00 S# [id number] 05/01/09 Cataract extraction 2009 Excision - intaductal papiloma left breast 2005 Cardiac catheterization, left heart6 Excision of 4 teeth Excision of 4 teeth 1SOA, Acute renal failure with severe metabolic acidosis.2See Conversion Document.3See Conversion Document.4CHOLELITHIASIS.5See Conversion Document.6has had several stents placed after heart attack in 2010 Social History Social History Type Response Smoking Status Never smoker Assessment and Plan Extracted from: Title: Ambulatory Patient Education Author: Crow Richmond MD Date: Cardiovascular Atrial Fibrillation Atrial fibrillation is a type of irregular or rapid heartbeat (arrhythmia). In atrial fibrillation, the heart quivers continuously in a chaotic pattern. This occurs when parts of the heart receive disor ganized signals that make the heart unable to pump blood normally. This can increase the risk for stroke, heart failure, and other heart-related conditions. There are different types of atrial fibrillation, including: Paroxysmal atrial fibrillation. This type starts suddenly, and it usually stops on its own shortly after it starts. Persistent atrial fibrillation. This type often lasts longer than a week. It may stop on its own or with treatment. Long-lasting persistent atrial fibrillation. This type lasts longer than 12 months. Permanent atrial fibrillation. This type does not go away. Talk with your health care provider to learn about the type of atrial fibrillation that you have. CAUSES This condition is caused by some heart-related conditions or procedures, including: A heart attack. Coronary artery disease. Heart failure. Heart valve conditions. High blood pressure. Inflammation of the sac that surrounds the heart (pericarditis). Heart surgery. Certain heart rhythm disorders, such as Ppue-Xusndnthe-Otlum syndrome. Other causes include: Pneumonia. Obstructive sleep apnea. Blockage of an artery in the lungs (pulmonary embolism, or PE). Lung cancer. Chronic lung disease. Thyroid problems, especially if the thyroid is overactive (hyperthyroidism). Caffeine. Excessive alcohol use or illegal drug use. Use of some medicines, including certain decongestants and diet pills. Sometimes, the cause cannot be found. RISK FACTORS This condition is more likely to develop in: People who are older in age. People who smoke. People who have diabetes mellitus. People who are overweight (obese). Athletes who exercise vigorously. SYMPTOMS Symptoms of this condition include: A feeling that your heart is beating rapidly or irregularly. A feeling of discomfort or pain in your chest. Shortness of breath. Sudden light-headedness or weakness. Getting tired easily during exercise. In some cases, there are no symptoms. DIAGNOSIS Your health care provider may be able to detect atrial fibrillation when taking your pulse. If detected, this condition may be diagnosed with: An electrocardiogram (ECG). A Holter monitor test that records your heartbeat patterns over a 24-hour period. Transthoracic echocardiogram (TTE) to evaluate how blood flows through your heart. Transesophageal echocardiogram (ARMEN) to view more detailed images of your heart. A stress test. Imaging tests, such as a CT scan or chest X-ray. Blood tests. TREATMENT The main goals of treatment are to prevent blood clots from forming and to keep your heart beating at a normal rate and rhythm. The type of treatment that you receive depends on many factors, such as yo ur underlying medical conditions and how you feel when you are experiencing atrial fibrillation. This condition may be treated with: Medicine to slow down the heart rate, bring the heart's rhythm back to normal , or prevent clots from forming. Electrical cardioversion. This is a procedure that resets your heart's rhythm by delivering a controlled, low-energy shock to the heart through your skin. Different types of ablation, such as catheter ablation, catheter ablation with pacemaker, or surgical ablation. These procedures destroy the heart tissues that send abnormal signals. When the pacema ker is used, it is placed under your skin to help your heart beat in a regular rhythm. HOME CARE INSTRUCTIONS Take over-the counter and prescription medicines only as told by your health care provider. If your health care provider prescribed a blood-thinning medicine ( anticoagulant), take it exactly as told. Taking too much blood-thinning medicine can cause bleeding. If you do not take enough bloo d-thinning medicine, you will not have the protection that you need against stroke and other problems. Do not use tobacco products, including cigarettes, chewing tobacco, and e- cigarettes. If you need help quitting, ask your health care provider. If you have obstructive sleep apnea, manage your condition as told by your health care provider. Do not drink alcohol. Do not drink beverages that contain caffeine, such as coffee, soda, and tea. Maintain a healthy weight. Do not use diet pills unless your health care provider approves. Diet pills may make heart problems worse. Follow diet instructions as told by your health care provider. Exercise regularly as told by your health care provider. Keep all follow-up visits as told by your health care provider. This is important. PREVENTION Avoid drinking beverages that contain caffeine or alcohol. Avoid certain medicines, especially medicines that are used for breathing problems. Avoid certain herbs and herbal medicines, such as those that contain ephedra or ginseng. Do not use illegal drugs, such as cocaine and amphetamines. Do not smoke. Manage your high blood pressure. SEEK MEDICAL CARE IF: You notice a change in the rate, rhythm, or strength of your heartbeat. You are taking an anticoagulant and you notice increased bruising. You tire more easily when you exercise or exert yourself. SEEK IMMEDIATE MEDICAL CARE IF: You have chest pain, abdominal pain, sweating, or weakness. You feel nauseous. You notice blood in your vomit, bowel movement, or urine. You have shortness of breath. You suddenly have swollen feet and ankles. You feel dizzy. You have sudden weakness or numbness of the face, arm, or leg, especially on one side of the body. You have trouble speaking, trouble understanding, or both (aphasia). Your face or your eyelid droops on one side. These symptoms may represent a serious problem that is an emergency. Do not wait to see if the symptoms will go away. Get medical help right away. Call your local emergency services (911 in the [place] Do not drive yourself to the hospital. This information is not intended to replace advice given to you by your health care provider. Make sure you discuss any questions you have with your health care provider. Document Released: 11/02/2006 Document Revised: 07/23/2016 Document Reviewed: 02/27/2016 [employer] Interactive Patient Education 2016 [employer] No follow up information was provided. Extracted from: Title: Office Visit Note Author: Crow Richmond MD Date: 06/18/17 Acquired renal cyst This issue was reviewed, appears stable, and current therapy continued except as mentioned. Appropriate lab was reviewed from the most recent appropriate entry and lab was ordered if needed in the cp oe/nursing orders, and follow up recommended generally in 90 days and no later then six months. IMPRESSION: Left renal mass, indeterminate. Ultrasound of the kidneys or pre and postcontrast CT would be recommended to exclude a solid mass. No other significant abnormality is detected. [1] Assessment/Plan Acute UTI Ordered: Measurement Of Post-Voiding Residual Urine And/Or Bladder Capacity By Ultrasound, Non-Imaging [id number] Office Visit Level 4 New 36538 Urinalysis Dipstick POC Renal cyst Ordered: Measurement Of Post-Voiding Residual Urine And/Or Bladder Capacity By Ultrasound, Non-Imaging 17721 Office Visit Level 4 New 32702 Urinalysis Dipstick POC [2] She has a f/u pending with Dr. Rivera. Adult hypothyroidism This issue was reviewed, appears stable, and current therapy continued except as mentioned. Appropriate lab was reviewed from the most recent appropriate entry and lab was ordered if needed in the cp oe/nursing orders, and follow up recommended generally in 90 days and no later then six months. Lab pending. Ordered: TSH with Reflex Free T4 Adult-onset obesity Diet and exercise as tolerated and feasible. Consider medication when interested. Atrial fibrillation This issue was reviewed, appears stable, and current therapy continued except as mentioned. Appropriate lab was reviewed from the most recent appropriate entry and lab was ordered if needed in the cp oe/nursing orders, and follow up recommended generally in 90 days and no later then six months. [address] Bhatia. Benign essential hypertension (disorder) This issue was reviewed, appears stable, and current therapy continued except as mentioned. Appropriate lab was reviewed from the most recent appropriate entry and lab was ordered if needed in the cp oe/nursing orders, and follow up recommended generally in 90 days and no later then six months. The patient reports their blood pressure has been stable at home and is not having any significant or related problems. There has been no chest pain, chest pressure, soa/valle. Chest pain, Chest pain Cause unclear. She has a stress test already scheduled later today. CXR pending. IMPRESSION: Increasing cardiac enlargement. No focal infiltrate or pulmonary edema is seen. [3] Ordered: XR Chest 2 Views Chronic kidney disease (CKD) This issue was reviewed, appears stable, and current therapy continued except as mentioned. Appropriate lab was reviewed from the most recent appropriate entry and lab was ordered if needed in the cp oe/nursing orders, and follow up recommended generally in 90 days and no later then six months. No nsaids. Sees Dr. Ureña. Coronary artery disease This issue was reviewed, appears stable, and current therapy continued except as mentioned. Appropriate lab was reviewed from the most recent appropriate entry and lab was ordered if needed in the cp oe/nursing orders, and follow up recommended generally in 90 days and no later then six months. Se[address] Bhatia. On pradaxa. Diabetes The patient was notified for the need for regular quarterly f/u of their diabetes. Further any pertinent medication, supplies, etc were refilled. Additionally, they are to have annual eye exams, foot exams, and regular care. Lab pending. Ordered: Comprehensive Metabolic Panel Hemoglobin A1c TSH with Reflex Free T4 Gastric polyps This issue was reviewed, appears stable, and current therapy continued except as mentioned. Appropriate lab was reviewed from the most recent appropriate entry and lab was ordered if needed in the cp oe/nursing orders, and follow up recommended generally in 90 days and no later then six months. Assessment/Plan 1.Multiple gastric polyps The EGD procedure, indication, and conscious sedation have been explained. The possible risks may include but not limited to bleeding, pain, infection, missed lesions, medication reaction,perf oration of her GI tract which may require surgery, cardiorespiratory arrest and . Her questions have been answered. [4] Hyperuricemia This issue was reviewed, appears stable, and current therapy continued except as mentioned. Appropriate lab was reviewed from the most recent appropriate entry and lab was ordered if needed in the cp oe/nursing orders, and follow up recommended generally in 90 days and no later then six months. Lab pending. Lots of questions. She very much wants to stay in the [facility] system. We discussed the pending management changes and she will consider transferring to a [place] PCP.
--- OUTSIDE RECORDS SUMMARY | 2018-05-29 12:29 | External Medical Summary | Referral Summary ---
:1945 Author Organization [facility] Address [address] [place] [address] Care Team Providers Name Role Phone Crow Richmond Primary Care Physician Encounter [facility] Date(s): 09/24/17 - 09/24/17 [facility] [address] [place] [address] [place] Discharge Diagnosis: Multiple gastric polyps Discharge Diagnosis: GERD without esophagitis Discharge Disposition: 01-Home or Self Care Attending Physician: Khushi Bourgeois III, MD Admitting Physician: Khushi Bourgeois III, MD Vital Signs Most recent to oldest [Reference Range]: 1 Peripheral Pulse Rate [60-100 bpm] 96 bpm (09/24/17 4:34 PM) Respiratory Rate [14-20 br/min] 20 br/min (09/24/17 4:34 PM) Blood Pressure [90-140/60-90 mmHg] 123/77 mmHg (09/24/17 4:34 PM) SpO2 98 % (09/24/17 4:34 PM) Problem List Condition Effective Dates Status [...] of premature Active CAD(Confirmed)5 Gastric polyps(Confirmed) Active Multiple gastric polyps(Confirmed) Active GERD without esophagitis(Confirmed) Active High [...] At Risk for Infection in Nutrition Planof [id number] RCA; stented x 2; first diagonal of LAD with 90-95 stenosis. On [facility], diagonal PTCA and LAD distal PTCA. 03-16-12 Stent to circumflex. CORONARY ATHERSCL UNSPEC VESSEL. See Conversion Document.3See Conversion Document.4See Conversion Document.5See Conversion Document.6PURE HYPERCHOLESTEROLEMIA. See Conversion Document.7See Conversion Document.8BENIGN ESSENTIAL HYPERTENSION. See Conversion Document.9Problem added automatically by system based on initiation of Impaired Skin Integrity Plan of [id number] BONE & CARTILAGE UNSP. See Conversion Document.11See Conversion Document.12CORONARY ATHERSCL UNSPEC VESSEL. See Conversion Document.13Problem added automatically by system based on initiation of Tissue Perfusion Cerebral Plan of [id number] Conversion Document.15DIABETES W/O COMPLICATION TYPEII. See Conversion Document. Allergies, Adverse Reactions, Alerts Substance Reaction Severity Status sulfa drugs Itching Active Actos1 Adverse reaction Active TriCor2 Intolerance Active metFORMIN stopped - renal insufficiency Active caused increase in creatinin [place] Facial swelling Medium Active Adverse Reaction 1"bad frame of mind"2per chart review- "TriCor stopped in Oct 2008 because of increasing renal insufficiency with eosinophilia" (documented allergy 11/28/[address] Loza) Medications allopurinol 100 mg oral tablet See Instructions, TAKE 1 TABLET BY MOUTH DAILY, # 30 tabs, 1 Refill(s), eRx: [facility] Start Date: 09/07/17 Status: OrderedALLOPURINOL 100MG TABLETS See Instructions, TAKE 1 TABLET BY MOUTH DAILY, # 30 tabs, eRx: [facility] , TAKE 1 TABLET BY MOUTH DAILY Start Date: 03/25/17 Status: Orderedaspirin 81 mg oral tablet 81 mg 1 tabs, Oral, Daily, 0 Refill(s) Start Date: 09/10/17 Status: Orderedatorvastatin 80 mg oral tablet See Instructions, TAKE 1 TABLET BY MOUTH DAILY, # 90 tabs, eRx: [facility] Start Date: 07/03/17 Status: OrderedB-D PEN NDL LARISA [id number]() GRN See Instructions, USE DIRECTED, # 100 unknown unit, 3 Refill(s), ANDRIY, eRx: [facility] , USE DIRECTED Start Date: 10/02/14 Status: [...] KwikPen 100 units/mL subcutaneous solution See Instructions, 25-25-25, # 60 mL, 1 Refill(s), Pharmacy: [facility] [id number] Start Date: 12/18/16 Status: OrderedInsulin Syringe (DME) [...] DAILY, # 45 mL, ANDRIY, eRx : [facility] Start Date: 10/18/16 Status: Orderedlevothyroxine 75 mcg (0.075 mg) oral tablet See Instructions, TAKE 1 TABLET BY MOUTH EVERY DAY, # 60 tabs, 1 Refill(s), eRx : [facility] Start Date: 07/03/17 Status: Orderedmupirocin 2% topical ointment 1 bryce, Topical, BID, # 22 g, 0 Refill(s), Pharmacy: [facility] Start Date: 11/30/15 Status: Orderednitroglycerin 0.4 [...] E11.9, # 100 Each, 0 Refill(s), Pharmacy: [facility] , Use to test blood sugar QID on 3 days of each week. ; DX: E11.9 Start Date: 06/05/17 Status: Orderedpantoprazole 40 mg oral delayed release tablet See Instructions, TAKE 1 TABLET BY MOUTH EVERY DAY, # 90 tabs, eRx: [facility] Start Date: 09/01/17 Status: OrderedPlavix 75 mg [...] Date Related Diagnosis Body Site Esophagogastroduodenoscopy 01/14/17 Stent 2017 Colonoscopy 11/16/15 Hospital admission1 2012 COLONOSCOPY FAMILY HX; HX POLYPS2 06/03/10 LAPAROSCOPIC CHOLECYSTECTOMY WITH CHOLANGIOGRAM3, 04/26/10 4 Cholecystectomy 2010 Cataract right 21.0 ZCB00 S# [id number] 05/01/09 Cataract extraction 2009 Excision - intaductal [...]
[2018-05-29] MEDS ORDERED: CEFTRIAXONE (ER USE ONLY) 1 GM in NS 100 ML IV ONE (14:26)
--- NOTE | 2018-05-29 15:10 | History & Physical Report ---
History of Present Illness Date: 05/29/18 Chief complaint: Weakness, UTI HPI: Patient is a 73-year-old female who presented to the emergency room today for acute evaluation of weakness, fatigue. Patient reports she has not felt well for the past 3 days. Her weakness, fatigue, continued to worsen. She has had little oral intake of the past several days, however has had elevation of blood sugars into the 300- 400s. Further evaluation in the emergency room was performed. Patient was found to have leukocytosis with a white count of 13.7, neutrophils 73% with 19% bandemia. Lactate was normal at 1.6. Hemoglobin is slightly low, however stable at 10.5, hematocrit 32.3, platelet count 148. Sodium to be slightly low at 135 and potassium of 3.4. Renal function is abnormally elevated with a BUN of 46 and a creatinine of 3.4. Baseline creatinine appears to be 1.8 on 04/23/2018. A urinalysis was obtained, indicating 3+ protein, glucose, blood, bilirubin, 1+ leukocyte esterase with too numerous to count WBCs with 4+ bacteria. Cultures were obtained in the emergency room as well as a urine culture. Patient was given normal saline 500 mL bolus followed by 1 gram of IV Rocephin for antimicrobial coverage. Hospitalist services were contacted and accepted patient for inpatient admission for further evaluation and treatment. She is seen initially while in the emergency room. She is alert, oriented and appears to be fatigued and ill. Her daughter, CINTHYA is at the bedside. She reports a three-day history of feeling fatigued and weak. She reports her blood sugars have been up in the 400s. Fasting sugar this morning was 287. Daughter reports patient had a cardiac arrest in 2010 requiring defibrillation. Since that time. She notes that she has had some intermittent episodes of "end organ damage". patient has been able to reside independently at home. She notes that over the past weeks to months she has had more pain in the lower extremities and has been undergoing outpatient physical therapy. She is recently requiring a walker to ambulate at home. On exam, and patient does complain of right shoulder pain with a small abrasion. Patient thinks that she bumped into the door frame last evening when getting up to ambulate. She denies having nausea, vomiting, abdominal pain or diarrhea. She does report feeling "gassy" and having increased belching. She does describe increased urinary incontinence over the past 3 days. Review of Systems All systems PM: 10-point ROS was reviewed, no additional remarkable complaints except - Constitutional Constitutional: Present: anorexia, fatigue, weakness - Genitourinary Genitourinary: Present: urinary incontinence Past Medical History Medical History Updates: Coronary artery disease. Atrial fibrillation. Type II diabetes. Chronic kidney disease. Hypertension. Congestive heart failure. Peripheral neuropathy. History of TIA. Glaucoma. Sleep apnea. Chronic anticoagulation Surgical History: Colonoscopy. Coronary Stent 07/2017. Cataracts. Tonsillectomy. Heart catheterization-12/2010-LAD 30-40%, RCA occluded-stent placement. Heart catheterization-02/2012. Heart catheterization-07/2017- Mid circumflex artery had about 80-90% stenosis. Right coronary artery was dominant with diffuse disease of up to about 30-40% with widely patent endovascular stents. successful primary stent of left circumflex. Renal angiograph- 07/2017- Renal angiograph he shows widely patent right and left renal arteries Family History: Mother-ALL, rectal cancer Father- in a house explosion Family History: As Above - Social History Smoking status: Never smoker Substance use type: does not use Alcohol intake frequency: does not drink Housing: house Current occupational status: retired Does patient use chewing tobacco?: No Current residence: Apartment/Private Home Social history: She is a . She resides independently with daughter nearby. Primary care provider, Dr. Gabe Richmond Quantitative Consultant-Dr. Bhatia. 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 King Medications Home Medications Medication Instructions Recorded Confirmed Type Atorvastatin [Lipitor] 80 mg PO HS #0 03/15/12 05/29/18 History Insulin Glargine,Hum.rec.anlog 60 unit SQ BID #0 03/15/12 05/29/18 History [Lantus] Allopurinol [Zyloprim] 100 mg PO HS 06/01/17 05/29/18 History Calcitriol [Rocaltrol] 0.25 mcg PO QMWF 06/01/17 05/29/18 History Dabigatran [Pradaxa] 150 mg PO BID 06/01/17 05/29/18 History PEG 3350 17gm PACKET [Miralax] 17 gm PO Q2D 06/01/17 05/29/18 History Cholecalciferol (Vitamin D3) 10,000 unit PO DAILY 08/10/17 05/29/18 History [Vitamin D3] Isosorbide Mononitrate ER [Imdur] 30 mg PO DAILY 08/10/17 05/29/18 History Mupirocin Ointment [Bactroban 1 applicatio TOP DAILY PRN 08/12/17 05/29/18 History Ointmment] Aspirin *EC* [Ecotrin] 81 mg PO DAILY #30 tab 08/13/17 05/29/18 Rx Clopidogrel [Plavix] 75 mg PO DAILY #30 tab 08/13/17 05/29/18 Rx Torsemide 5 - 10 mg PO DAILY 08/20/17 05/29/18 History Humalog KwikPen (insulin lispro) 25 unit SQ TIDWM 40 Days ml 08/27/17 05/29/18 History 100 unit/mL SQ PEN glucosamine-chondroitin 2 tab PO DAILY 08/27/17 05/29/18 History multivitamin capsule 1 cap PO DAILY cap 08/27/17 05/29/18 History Fish Oil/Dha/Epa [Fish Oil 1,200 3 cap PO DAILY 11/03/17 05/29/18 History mg Fish Oil] Pantoprazole Sodium [Protonix] 40 mg PO DAILY 11/03/17 05/29/18 History Tramadol [Ultram] 50 mg PO BID 11/03/17 05/29/18 History Amiodarone [Pacerone] 200 mg PO DAILY #30 tab 11/05/17 05/29/18 Rx Levothyroxine Sodium 88 mcg PO DAILY 01/05/18 05/29/18 History Acetaminophen [Tylenol] 650 mg PO Q8H PRN 05/29/18 05/29/18 History Baking Soda 1 tsp PO DAILY 05/29/18 05/29/18 History Ferrous Sulfate [Iron] 325 mg PO DAILY 05/29/18 05/29/18 History Allergies Allergy/AdvReac Type Severity Reaction Status Date / Time fenofibrate [From Tricor] Allergy Verified 05/29/18 12:18 metformin Allergy Verified 05/29/18 12:18 feathers AdvReac Mild Headache Verified 05/29/18 12:18 cat dander AdvReac Verified 05/29/18 12:18 wilda AdvReac Verified 07/14/18 12:18 pioglitazone AdvReac Verified 05/29/18 12:18 Exam Vital Signs: Temperature 98.3 F 05/29/18 11:48 Pulse Rate 77 05/29/18 14:45 Respiratory Rate 22 05/29/18 14:04 Blood Pressure 161/87 H 05/29/18 14:30 Pulse Oximetry 96 05/29/18 14:45 Height/Weight/BMI: Height 1.55 m Weight 96.6 kg - Constitutional Present: mild distress, well nourished, well developed - Routine HEENT Exam Eye: Present: EOMI ENT: Present: mucous membranes moist, dentition normal - Routine Respiratory Exam Present: CTA bilaterally. Absent: wheezes - Routine Cardiovascular Exam Present: RRR, S1, S2. Absent: murmur - Routine Abdominal Exam Present: soft, normoactive bowel sounds, non distended. Absent: tenderness - Routine Extremities Exam Present: edema (trace bilateral lower ext), pulses intact Comments: Right shoulder tenderness - Routine Skin Exam Present: intact, dry, warm - Routine Neurological Exam Present: alert, oriented X3, CN II-XII intact, moving all extremities - Routine Psychiatric Exam Present: normal affect, normal thought process, cooperative Results - Labs CBC & Chem 7: 05/29/18 12:38 05/29/18 12:38 Microbiology Results: Microbiology 05/29/18 13:29 Urine, Cath Straight Urine Culture - Preliminary Culture Initiated - Results Pending 05/29/18 13:29 Peripheral/Iv Start Blood Culture - Preliminary Culture Initiated - Results Pending 05/29/18 13:34 Peripheral/Iv Start Blood Culture - Preliminary Culture Initiated - Results Pending Assessment and Plan Assessment and Plan: Impression Sepsis- Criteria - SIRS + UTI. Leukocytosis- 13.7, Bandemia- 19% UTI JOHAN- Clinical Care Leader 3.4 on admission. Baseline 1.8 DM- type 2 with hyperglycemia Hyponatremia- POA Hypokalemia-POA Right shoulder contusion- POA Coronary disease Congestive heart failure Atrial fibrillation. GERD Peripheral neuropathy Apnea Plan Admit patient, inpatient status and care of Dr. Cardenas for sepsis, UTI with acute kidney injury Initial lactate was normal in the emergency room at 1.6. Cultures and urine culture have been obtained. Patient was placed on IV Rocephin for antimicrobial coverage. Patient was given 500 mL bolus in the emergency room. We will repeat another 500 mL bolus of normal saline and decrease rate to 125 mL/hr for ongoing hydration Will place Salazar catheter to monitor at urinary output. Recheck BMP at 1800 tonight to follow electrolytes and renal function Accuchecks QID. Continue on home insulin , Humalog 25 units with meals, Lantus 60 units twice a day. Blood sugars have been uncontrolled and elevated recently likely secondary to acute infectious process Continue with home amiodarone, Lipitor, Imdur, Plavix and Pradaxa. Did speak with Dr. Bhatia's nurse practitioner home restoration service supervisor-JONEL Montana. We discussed chronic anticoagulation. She did report, we can discontinue aspirin at this time and can make this change on her home medication sheet. Continue with Plavix and Pradaxa for ongoing anticoagulation/antiplatelet. Hold Torsemide at time of admission. She normally takes 5 mg daily and adds another 5 mg PRN edema. Shoulder Xray reviewed by myself- No obvious fracture- Will wait for radiology read. SCDs to bilateral lower extremity for DVT prophylaxis Full Code ordered per pt request Will discuss further orders and plan of care with attending, Dr. Cardenas At time of discharge medical care will return to primary care provider, Dr Richmond and cardiology Dr Bhatia 05/29/2018-4:30 PM-I examined the patient independently. I reviewed this chart, the patient history, and the RECEPTIONIST DOCTOR'S OFFICE's/PA's documented findings as above. We discussed and formulated the assessment and plan as above with the additions below.-Dr. Cardenas The patient was seen this afternoon in her room. She complains of right shoulder pain. She is currently having chills. She denies chest pain or abdominal pain. She denies nausea, vomiting or diarrhea. She states she feels a little short of breath. I did check her oximetry and it is 92-95% on room air. She has had some dysuria. She does appear mildly confused at this time. On exam she is alert and in mild distress from chilling. HEENT reveals oropharynx to be moist. Neck is supple. Chest is clear to auscultation. Cardiovascular reveals a regular rate and rhythm. Abdomen is soft and nontender. Extremities are free of edema. Right shoulder is free of erythema. Chest x-ray on my read reveals some borderline cardiomegaly, poor inspiration, no obvious infiltrates. Right shoulder x-ray on my read reveals no obvious fracture or dislocation. CT head reveals no acute findings. Of note she did have cerebellar and cerebral volume loss, patchy hypodensity is seen in the periventricular and subcortical white matter. No hemorrhage Impression Sepsis Encephalopathy Acute kidney injury on chronic kidney disease UTI Type 2 diabetes with hyperglycemia likely secondary to sepsis Plan Admit as inpatient. Repeat 500 cc normal saline bolus and then IV fluids at 125 an hour. Vitals every hour 4 hours and if stable can decrease to every 2 hours every 4 hours. If still stable can decrease to every 4 hours. Repeat lactate and basic metabolic profile at 5:40 this evening. Rocephin for UTI. Await blood and urine cultures. Monitor urine output closely. Place Salazar. Avoid Nephrotoxins Renal panel, magnesium, CBC tomorrow Discussed with patient's nurse. DVT Prophylaxis: SCD's GI Prophylaxis: Protonix Resuscitation Status: Full Code - Time spent with patient Time with patient PN: 50 minutes - Physician Narrative Narrative: Date: 05/29/18 Time: 1503 Hospital Course Summary Disclaimer: The visit summary below is not to be considered part of the above Progress Note. Hospital Course: Impression Sepsis- Criteria - SIRS + UTI. Leukocytosis- 13.7, Bandemia- 19% UTI JOHAN- Clinical Care Leader 3.4 on admission. Baseline 1.8 DM- type 2 with hyperglycemia Hyponatremia- POA Hypokalemia-POA Right shoulder contusion- POA Coronary disease Congestive heart failure Atrial fibrillation. GERD Peripheral neuropathy Apnea Plan Admit patient, inpatient status and care of Dr. Cardenas for sepsis, UTI with acute kidney injury Initial lactate was normal in the emergency room at 1.6. Cultures and urine culture have been obtained. Patient was placed on IV Rocephin for antimicrobial coverage. Patient was given 500 mL bolus in the emergency room. We will repeat another 500 mL bolus of normal saline and decrease rate to 125 mL/hr for ongoing hydration Will place Salazar catheter to monitor at urinary output. Recheck BMP at 1800 tonight to follow electrolytes and renal function Accuchecks QID. Continue on home insulin , Humalog 25 units with meals, Lantus 60 units twice a day. Blood sugars have been uncontrolled and elevated recently likely secondary to acute infectious process Continue with home amiodarone, Lipitor, Imdur, Plavix and Pradaxa. Did speak with Dr. Bhatia's nurse practitioner home restoration service supervisor-JONEL Montana. We discussed chronic anticoagulation. She did report, we can discontinue aspirin at this time and can make this change on her home medication sheet. Continue with Plavix and Pradaxa for ongoing anticoagulation/antiplatelet. Hold Torsemide at time of admission. She normally takes 5 mg daily and adds another 5 mg PRN edema. Shoulder Xray reviewed by myself- No obvious fracture- Will wait for radiology read. SCDs to bilateral lower extremity for DVT prophylaxis Full Code ordered per pt request Will discuss further orders and plan of care with attending, Dr. Cardenas At time of discharge medical care will return to primary care provider, Dr Richmond and cardiology Dr Bhatia
[2018-05-29] MEDS: NS 1,000 ML IV SCH ×2 (15:24→20:04)
[2018-05-29] MEDS ORDERED: POLYETHYL GLYCOL 3350 17gm PACKET PO SCH (15:45)
[2018-05-29] MEDS: ACETAMINOPHEN 325 MG TABLET PO PRN (17:57)
[2018-05-29] MEDS: INSULIN GLARGINE 100unit/ml INJECTION SQ SCH (21:15)
[2018-05-29] MEDS: ALLOPURINOL 100 MG TABLET PO SCH (21:15)
[2018-05-30] MEDS: NS 1,000 ML IV SCH ×2 (04:31→07:15)
[2018-05-30] MEDS: ATORVASTATIN 40 MG TABLET PO SCH ×2 (06:11→22:19)
[2018-05-30] MEDS: PANTOPRAZOLE 40 MG TABLET PO SCH (07:08)
[2018-05-30] MEDS: LEVOTHYROXINE 88 MCG TABLET PO SCH (07:09)
[2018-05-30] MEDS: ISOSORBIDE MONONITRATE ER 30 MG TABLET PO SCH (07:09)
--- NOTE | 2018-05-30 08:48 | Progress Note ---
- Date 05/30/18 Subjective: The patient was seen this morning in her room. She states she is feeling a little bit better than yesterday. She states she did have shaking chills last night. She does feel hungry. She had a bowel movement this morning and is passing gas. She denies any nausea. She states she occasionally feels short of breath, but does not feel short of breath now. She is currently on 2 L of oxygen with saturations of 95%. She denies any chest pain. She denies any back pain. She has been having some pain in her thigh and goes to physical therapy. She has been using a walker since that time. She denies use of any NSAIDs for pain. She has been using some tramadol. Objective Vital signs: Temperature 98 F 05/30/18 08:00 Pulse Rate 79 05/30/18 08:00 Respiratory Rate 18 05/30/18 08:00 Blood Pressure 138/69 05/30/18 08:00 Pulse Oximetry 94 05/30/18 08:00 Height/Weight/BMI: Height 1.55 m Weight 95.2 kg Body Mass Index 39.6 Comments: MAXIMUM TEMPERATURE is 101.2 and a current temperature is 90.8, respirations 18 , pulse 79, blood pressure 138/69, O2 sat 94% on 2 L Cumulative I&O's 3225/500 GEN-alert, oriented, appears mildly fatigued HEENT-oropharynx is moist NECK-supple CV-regular rate and rhythm with occasional ectopic beat CHEST-mild crackles in the bases, otherwise clear ABD-soft, nontender with positive bowel sounds -Salazar in place with dark yellow urine, yesterday was very cloudy with sediment-urine is more clear today EXT-no edema, SCDs are on NEURO-no focal deficits SKIN-warm, mildly diaphoretic, no rashes Results - Labs CBC & Chem 7: 05/30/18 04:51 05/30/18 04:51 Labs: Lactate yesterday 1.6, then 2.0, then back down to 1.6 Albumin 2.9, phosphorus 3.6, magnesium 1.8 CPK is pending Microbiology Results: Microbiology 05/29/18 13:29 Peripheral/Iv Start Gram Stain - Final 05/29/18 13:29 Peripheral/Iv Start Blood Culture - Preliminary Escherichia coli 05/29/18 13:34 Peripheral/Iv Start Blood Culture - Preliminary Culture Initiated - Results Pending 05/29/18 13:29 Urine, Cath Straight Urine Culture - Preliminary Culture Initiated - Results Pending Assessment and Plan (1) JOHAN (acute kidney injury) Current visit: Yes Status: Acute Assessment and Plan: Impression Sepsis- Criteria - SIRS + UTI. Leukocytosis- 13.7, Bandemia- 19% UTI Escherichia coli bacteremia one of 2 blood cultures JOHAN- Test Engineering Technician 3.4 on admission. Baseline 1.8-significant improvement in creatinine with IV fluids DM- type 2 with hyperglycemia Encephalopathy Acute hypoxic respiratory failure -currently on 2 L Hyponatremia- POA-resolved Hypokalemia-POA Right shoulder contusion- POA Coronary disease Congestive heart failure Atrial fibrillation. Chronic anticoagulation with Pradaxa GERD Peripheral neuropathy Apnea Plan Escherichia coli in one of 2 blood cultures. Urine culture pending. Creatinine has not changed greatly since admission and is 3.3 today. Urine output is approximately 600 ML's since admission yesterday afternoon Continue Rocephin 1 g IV daily. Continue current fluid rate and check chest x- ray to rule out pulmonary edema. Discuss with nephrology. Consider cautious potassium replacement Continue to avoid nephrotoxins. Continue to monitor urine output closely. Start renal/diabetic diet Pradaxa secondary to acute renal failure Hold Plavix until discussed with nephrology Repeat renal panel, magnesium, CBC tomorrow Check CPK today DVT Prophylaxis: SCD's, Pradaxa (received last night, currently on hold) GI Prophylaxis: Protonix Resuscitation Status: Full Code - Physician Narrative Narrative: Date: 05/30/18 Time: 0843 Hospital Course Summary Disclaimer: The visit summary below is not to be considered part of the above Progress Note. Hospital Course: Impression Sepsis- Criteria - SIRS + UTI. Leukocytosis- 13.7, Bandemia- 19% UTI JOHAN- Test Engineering Technician 3.4 on admission. Baseline 1.8 DM- type 2 with hyperglycemia Hyponatremia- POA Hypokalemia-POA Right shoulder contusion- POA Coronary disease Congestive heart failure Atrial fibrillation. GERD Peripheral neuropathy Apnea Plan Admit patient, inpatient status and care of Dr. Cardenas for sepsis, UTI with acute kidney injury Initial lactate was normal in the emergency room at 1.6. Cultures and urine culture have been obtained. Patient was placed on IV Rocephin for antimicrobial coverage. Patient was given 500 mL bolus in the emergency room. We will repeat another 500 mL bolus of normal saline and decrease rate to 125 mL/hr for ongoing hydration Will place Salazar catheter to monitor at urinary output. Recheck BMP at 1800 tonight to follow electrolytes and renal function Accuchecks QID. Continue on home insulin , Humalog 25 units with meals, Lantus 60 units twice a day. Blood sugars have been uncontrolled and elevated recently likely secondary to acute infectious process Continue with home amiodarone, Lipitor, Imdur, Plavix and Pradaxa. Did speak with Dr. Bhatia's nurse practitioner test consultant-JONEL Montana. We discussed chronic anticoagulation. She did report, we can discontinue aspirin at this time and can make this change on her home medication sheet. Continue with Plavix and Pradaxa for ongoing anticoagulation/antiplatelet. Hold Torsemide at time of admission. She normally takes 5 mg daily and adds another 5 mg PRN edema. Shoulder Xray reviewed by myself- No obvious fracture- Will wait for radiology read. SCDs to bilateral lower extremity for DVT prophylaxis Full Code ordered per pt request Will discuss further orders and plan of care with attending, Dr. Cardenas At time of discharge medical care will return to primary care provider, Dr Richmond and cardiology Dr Bhatia 05/30/2018 Plan Escherichia coli in one of 2 blood cultures. Urine culture pending. Creatinine has not changed greatly since admission and is 3.3 today. Urine output is approximately 600 ML's since admission yesterday afternoon Continue Rocephin 1 g IV daily. Continue current fluid rate and check chest x- ray to rule out pulmonary edema. Discuss with nephrology. Consider cautious potassium replacement Continue to avoid nephrotoxins. Continue to monitor urine output closely. Start renal/diabetic diet Pradaxa secondary to acute renal failure Hold Plavix until discussed with nephrology Repeat renal panel, magnesium, CBC tomorrow Check CPK today
[2018-05-30] MEDS ORDERED: CLOPIDOGREL 75 MG TABLET PO SCH (09:00)
--- NOTE | 2018-05-30 09:28 | XRay Report ---
Indication: Pain PROCEDURE: XR shoulder RT 2-3 views: Encounter: Initial Comparison: None Findings: There is no acute fracture, dislocation or malalignment identified. Mild acromioclavicular degenerative change. Impression: No acute osseous abnormality. .
--- NOTE | 2018-05-30 09:33 | CT Scan Report ---
Indication: weakness PROCEDURE: CT head/brain wo con: Encounter: Initial Comparison: Brain MRI dated October 21, 2017 Technique: Axial CT images through the head were performed without contrast. Iterative Reconstruction dose reducing technique was utilized. FINDINGS: The ventricles are of normal size, shape, and contour for the patient's age. There are numerous areas of low attenuation in the white matter which most likely represent changes from chronic microvascular ischemia. The brainstem, cerebellum, and cerebral hemispheres otherwise have a normal morphology and CT attenuation. There is no evidence of midline displacement. No hemorrhage, signs of acute territorial stroke, mass effect, mass lesions, or edema is evident. The visualized portions of the skull base, midface, and calvarium demonstrate no abnormality. The paranasal sinuses are well aerated and free of significant disease. The tympanic and mastoid cavities appear normal. IMPRESSION: No acute intracranial abnormality or hemorrhage. .
--- NOTE | 2018-05-30 09:52 | XRay Report ---
Indication: gen weakness PROCEDURE: XR chest 1V: Encounter: Initial Comparison: September 22, 2017 Findings: The lungs are stable in appearance without new focal airspace consolidation. There is no pleural effusion or pneumothorax. The heart size, pulmonary vascularity and mediastinal contours are unchanged. IMPRESSION: Stable appearance of the chest without acute cardiopulmonary disease. .
[2018-05-30] MEDS: MULTI-VITAMIN PLAIN TABLET PO SCH (10:08)
[2018-05-30] MEDS: AMIODARONE 200 MG TABLET PO SCH (10:08)
[2018-05-30] MEDS: INSULIN GLARGINE 100unit/ml INJECTION SQ SCH ×2 (10:08→22:20)
[2018-05-30] MEDS: INSULIN ASPART 100unit/ml INJECTION SQ SCH ×3 (10:14→17:31)
[2018-05-30] MEDS: CEFTRIAXONE 1 G in D5W 100 ML IV SCH (10:15)
[2018-05-30] MEDS: POLYETHYL GLYCOL 3350 17gm PACKET PO SCH (10:16)
--- NOTE | 2018-05-30 10:22 | XRay Report ---
Indication: hypoxia, rule out pulmonary edema PROCEDURE: XR chest 1V: Encounter: Initial Comparison: May 29, 2018 Findings: Increased interstitial prominence compared to the prior study. No lobar pneumonia. No pleural effusion or pneumothorax. Heart size and mediastinal contours are stable. Impression: Developing mild pulmonary edema. .
[2018-05-30] MEDS ORDERED: FUROSEMIDE 40 MG/4 ML INJECTION IVP ONE (11:42)
[2018-05-30] MEDS: CLOPIDOGREL 75 MG TABLET PO SCH (12:32)
[2018-05-30] MEDS: CALCITRIOL 0.25 MCG CAPSULE PO SCH (12:33)
[2018-05-30] MEDS: ALLOPURINOL 100 MG TABLET PO SCH (22:19)
[2018-05-30] MEDS: DABIGATRAN 75 MG PO SCH (23:14)
[2018-05-31] MEDS: LEVOTHYROXINE 88 MCG TABLET PO SCH (06:26)
[2018-05-31] MEDS: PANTOPRAZOLE 40 MG TABLET PO SCH (06:26)
[2018-05-31] MEDS: ISOSORBIDE MONONITRATE ER 30 MG TABLET PO SCH (06:26)
[2018-05-31] MEDS: AMIODARONE 200 MG TABLET PO SCH (08:23)
[2018-05-31] MEDS: DABIGATRAN 75 MG PO SCH ×2 (08:23→20:59)
[2018-05-31] MEDS: MULTI-VITAMIN PLAIN TABLET PO SCH (08:23)
[2018-05-31] MEDS: CLOPIDOGREL 75 MG TABLET PO SCH (08:23)
[2018-05-31] MEDS: INSULIN ASPART 100unit/ml INJECTION SQ SCH ×3 (08:24→17:04)
[2018-05-31] MEDS: INSULIN GLARGINE 100unit/ml INJECTION SQ SCH ×2 (08:24→20:59)
[2018-05-31] MEDS: CEFTRIAXONE 1 G in D5W 100 ML IV SCH (08:24)
[2018-05-31] MEDS: CALCITRIOL 0.25 MCG CAPSULE PO SCH (11:35)
--- NOTE | 2018-05-31 16:13 | Progress Note ---
- Date 05/31/18 Subjective: The patient was seen this morning in her room accompanied by her daughter. Patient states she's feeling better today. Urine output yesterday was 1350 ML' s. Urine output from midnight until this morning was 675 ML's. She states her shortness of breath is getting better. Her appetite is improving. She denies any pain other than some mild low back pain which she thinks is from lying in bed too long. Objective Vital signs: Temperature 96.4 F L 05/31/18 15:00 Pulse Rate 79 05/31/18 15:00 Respiratory Rate 18 05/31/18 15:00 Blood Pressure 157/85 H 05/31/18 15:00 Pulse Oximetry 96 05/31/18 15:00 Height/Weight/BMI: Height 1.55 m Weight 98.8 kg Body Mass Index 39.6 Comments: Afebrile, heart rate 79, respirations 18, blood pressure 157/85, O2 sat 97% on 2 L this morning. Now she is 96% on 1 L. GEN-, oriented, no acute distress HEENT-sclera anicteric, oropharynx is moist NECK-supple CV-regular rate and rhythm CHEST-minimal crackles in the bases ABD-soft, nontender with positive bowel sounds -Salazar in place with normal colored urine EXT-trace edema NEURO-no focal deficits SKIN-warm and dry and without rashes Results - Labs CBC & Chem 7: 05/31/18 03:57 05/31/18 03:57 Labs: Phosphorus is 4.0. Magnesium 2.0. Calcium 8.6. Albumin 2.9. Microbiology Results: Microbiology 05/29/18 13:34 Peripheral/Iv Start Gram Stain - Final 05/29/18 13:34 Peripheral/Iv Start Blood Culture - Final Escherichia coli 05/29/18 13:29 Peripheral/Iv Start Gram Stain - Final 05/29/18 13:29 Peripheral/Iv Start Blood Culture - Final Escherichia coli 05/29/18 13:29 Urine, Cath Straight Urine Culture - Preliminary Escherichia coli Assessment and Plan (1) JOHAN (acute kidney injury) Current visit: Yes Status: Acute Assessment and Plan: Impression Sepsis- Criteria - SIRS + UTI. Leukocytosis- 13.7, Bandemia- 19% UTI-E. 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 Baseline 1.8-significant improvement in creatinine with IV fluids DM- type 2 with hyperglycemia Encephalopathy -resolved Acute hypoxic respiratory failure -currently on 2 L-secondary to pulmonary edema /fluid overload Pulmonary edema secondary to fluid overload Hyponatremia- POA-resolved Hypokalemia-POA Right shoulder contusion- POA Coronary disease Congestive heart failure Atrial fibrillation. Chronic anticoagulation with Pradaxa GERD Peripheral neuropathy Apnea Plan The patient's creatinine continues to trend up. Creatinine is 3.8 today up from 3.[address] Gonzalez, on-call for Dr. King. He stated that since the patient's urine output is doing well and breathing is improving, he would not recommend a change in treatment. He stated she likely had ATN and her creatinine may continue to climb for a day or 2, but that it should start improving. Regarding her hypokalemia, he did recommend 40 mEq of potassium 2 today and then rechecking her level. Magnesium is normal. Regarding Escherichia coli bacteremia secondary to UTI-this is sensitive to Rocephin. She appears to be improving. She has been afebrile. White count is slowly trending down. Bands today are 3 down from 20 yesterday. She will need a 2 week course of antibiotics due to bacteremia. We'll continue Plavix for coronary artery disease with stent in July 2018. Continue Pradaxa 75 mg twice daily (renal dose) for A. fib and prevention of stroke. Repeat basic metabolic profile this afternoon. Repeat renal panel and CBC tomorrow. DVT Prophylaxis: Pradaxa GI Prophylaxis: Protonix Resuscitation Status: Full Code - Physician Narrative Narrative: Date: 05/31/18 Time: 1606 Hospital Course Summary Disclaimer: The visit summary below is not to be considered part of the above Progress Note. Hospital Course: Impression Sepsis- Criteria - SIRS + UTI. 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 Baseline 1.8 DM- type 2 with hyperglycemia Hyponatremia- POA Hypokalemia-POA Right shoulder contusion- POA Coronary disease Congestive heart failure Atrial fibrillation. GERD Peripheral neuropathy Apnea Plan Admit patient, inpatient status and care of Dr. Cardenas for sepsis, UTI with acute kidney injury Initial lactate was normal in the emergency room at 1.6. Cultures and urine culture have been obtained. Patient was placed on IV Rocephin for antimicrobial coverage. Patient was given 500 mL bolus in the emergency room. We will repeat another 500 mL bolus of normal saline and decrease rate to 125 mL/hr for ongoing hydration Will place Salazar catheter to monitor at urinary output. Recheck BMP at 1800 tonight to follow electrolytes and renal function Accuchecks QID. Continue on home insulin , Humalog 25 units with meals, Lantus 60 units twice a day. Blood sugars have been uncontrolled and elevated recently likely secondary to acute infectious process Continue with home amiodarone, Lipitor, Imdur, Plavix and Pradaxa. Did speak with Dr. Bhatia's nurse practitioner python consultant-JONEL Montana. We discussed chronic anticoagulation. She did report, we can discontinue aspirin at this time and can make this change on her home medication sheet. Continue with Plavix and Pradaxa for ongoing anticoagulation/antiplatelet. Hold Torsemide at time of admission. She normally takes 5 mg daily and adds another 5 mg PRN edema. Shoulder Xray reviewed by myself- No obvious fracture- Will wait for radiology read. SCDs to bilateral lower extremity for DVT prophylaxis Full Code ordered per pt request Will discuss further orders and plan of care with attending, Dr. Cardenas At time of discharge medical care will return to primary care provider, Dr Richmond and cardiology Dr Bhatia 05/30/2018 Plan Escherichia coli in one of 2 blood cultures. Urine culture pending. Creatinine has not changed greatly since admission and is 3.3 today. Urine output is approximately 600 ML's since admission yesterday afternoon Continue Rocephin 1 g IV daily. Continue current fluid rate and check chest x- ray to rule out pulmonary edema. Discuss with nephrology. Consider cautious potassium replacement Continue to avoid nephrotoxins. Continue to monitor urine output closely. Start renal/diabetic diet Pradaxa secondary to acute renal failure Hold Plavix until discussed with nephrology Repeat renal panel, magnesium, CBC tomorrow Check CPK today
[2018-05-31] MEDS ORDERED: NITROGLYCERIN 0.4 MG SUBLINGUAL TABLET SL PRN (16:42)
[2018-05-31] MEDS ORDERED: MORPHINE SULFATE 2mg INJECTION IVP PRN (16:44)
[2018-05-31] MEDS: ATORVASTATIN 40 MG TABLET PO SCH (20:59)
[2018-05-31] MEDS: ALLOPURINOL 100 MG TABLET PO SCH (20:59)
[2018-05-31] MEDS: GUAIFENESIN 400MG TABLET PO SCH (20:59)
[2018-06-01] MEDS: TRAMADOL 50 MG TABLET PO PRN (02:27)
[2018-06-01] MEDS: PANTOPRAZOLE 40 MG TABLET PO SCH (06:09)
[2018-06-01] MEDS: ISOSORBIDE MONONITRATE ER 30 MG TABLET PO SCH (06:09)
[2018-06-01] MEDS: LEVOTHYROXINE 88 MCG TABLET PO SCH (06:09)
--- NOTE | 2018-06-01 08:11 | XRay Report ---
Indication: pulm edema, cough PROCEDURE: XR chest 1V: Encounter: Initial Comparison: May 30, 2018 Findings: Interstitial prominence remains without significant change. No pleural effusion. No pneumothorax. Heart size and mediastinal contours are stable. Pulmonary vascularity remains mildly congested. Impression: No significant change in the mild pulmonary edema pattern. .
[2018-06-01] MEDS: DABIGATRAN 75 MG PO SCH ×2 (08:39→21:01)
[2018-06-01] MEDS: CEFTRIAXONE 1 G in D5W 100 ML IV SCH (08:39)
[2018-06-01] MEDS: GUAIFENESIN 400MG TABLET PO SCH ×3 (08:39→21:01)
[2018-06-01] MEDS: CLOPIDOGREL 75 MG TABLET PO SCH (08:39)
[2018-06-01] MEDS: MULTI-VITAMIN PLAIN TABLET PO SCH (08:39)
[2018-06-01] MEDS: AMIODARONE 200 MG TABLET PO SCH (08:39)
[2018-06-01] MEDS: POLYETHYL GLYCOL 3350 17gm PACKET PO SCH (08:39)
[2018-06-01] MEDS: INSULIN GLARGINE 100unit/ml INJECTION SQ SCH ×2 (08:40→21:01)
[2018-06-01] MEDS: INSULIN ASPART 100unit/ml INJECTION SQ SCH ×3 (08:40→18:12)
--- NOTE | 2018-06-01 11:44 | Progress Note ---
- Date 06/01/18 Subjective: The patient was seen this morning in her room. She states she is feeling well. She is eating and drinking okay. She continues to have some left lateral chest wall discomfort that is worse with movement. She slept fairly well last night. She is eating and drinking without difficulty. She is currently on room air. Objective Vital signs: Temperature 97.2 F 06/01/18 03:58 Pulse Rate 73 06/01/18 08:00 Respiratory Rate 18 06/01/18 03:58 Blood Pressure 164/68 H 06/01/18 03:58 Pulse Oximetry 96 06/01/18 03:58 Height/Weight/BMI: Height 1.55 m Weight 100.8 kg Body Mass Index 39.6 Comments: Afebrile, blood pressure 164/68, pulse 67, O2 sat 96% on room air GEN-alert, oriented, no acute distress HEENT-sclera anicteric, oropharynx is moist NECK-supple CV-regular rate and rhythm CHEST-clear to auscultation bilaterally ABD-soft, nontender with positive bowel sounds -no Salazar EXT-+1 pretibial edema NEURO-no focal deficits SKIN-warm and dry Results - Labs CBC & Chem 7: 06/01/18 04:06 06/01/18 04:06 Labs: Anion gap is normal. White count is 13.7 down from 16. Bands are 5%. Troponin was negative 3. Albumin was 2.8. Microbiology Results: Microbiology 05/29/18 13:34 Peripheral/Iv Start Gram Stain - Final 05/29/18 13:34 Peripheral/Iv Start Blood Culture - Final Escherichia coli 05/29/18 13:29 Peripheral/Iv Start Gram Stain - Final 05/29/18 13:29 Peripheral/Iv Start Blood Culture - Final Escherichia coli 05/29/18 13:29 Urine, Cath Straight Urine Culture - Preliminary Escherichia coli Assessment and Plan (1) JOHAN (acute kidney injury) Current visit: Yes Status: Acute Assessment and Plan: Impression Sepsis- Criteria - SIRS + UTI. Leukocytosis- 13.7, Bandemia- 19% UTI-E. 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 Baseline 1.8-significant improvement in creatinine with IV fluids DM- type 2 with hyperglycemia Encephalopathy -resolved Acute hypoxic respiratory failure -currently on 2 L-secondary to pulmonary edema /fluid overload Pulmonary edema secondary to fluid overload Hyponatremia- POA-resolved Hypokalemia-POA Right shoulder contusion- POA Coronary disease Congestive heart failure Atrial fibrillation. Chronic anticoagulation with Pradaxa GERD Peripheral neuropathy Apnea Chest pain-likely musculoskeletal-troponin negative 3 Plan Creatinine is now improving and is down to 3.3. Bicarbonate is down from 2216 with a normal anion gap. She has elevation of blood pressure in the 160s to 170s. I did discuss the patient with Dr. Lilly, and he recommended watching bicarbonate at this time. Regarding blood pressure, he recommended Norvasc 5 mg daily and Coreg 3.125 mg twice daily. We'll continue with Salazar catheter. Pulmonary edema has improved and the patient is on room air Continue with renal dose Pradaxa for atrial fibrillation. Continue Plavix for coronary artery disease with history of stent. Hypokalemia has resolved. Repeat CBC and renal panel tomorrow. Continue Rocephin for UTI. She will need a two-week course of antibiotics for bacteremia. - Physician Narrative Narrative: Date: 06/01/18 Time: 1137 Hospital Course Summary Disclaimer: The visit summary below is not to be considered part of the above Progress Note. Hospital Course: Impression Sepsis- Criteria - SIRS + UTI. 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 Baseline 1.8 DM- type 2 with hyperglycemia Hyponatremia- POA Hypokalemia-POA Right shoulder contusion- POA Coronary disease Congestive heart failure Atrial fibrillation. GERD Peripheral neuropathy Apnea Plan Admit patient, inpatient status and care of Dr. Cardenas for sepsis, UTI with acute kidney injury Initial lactate was normal in the emergency room at 1.6. Cultures and urine culture have been obtained. Patient was placed on IV Rocephin for antimicrobial coverage. Patient was given 500 mL bolus in the emergency room. We will repeat another 500 mL bolus of normal saline and decrease rate to 125 mL/hr for ongoing hydration Will place Salazar catheter to monitor at urinary output. Recheck BMP at 1800 tonight to follow electrolytes and renal function Accuchecks QID. Continue on home insulin , Humalog 25 units with meals, Lantus 60 units twice a day. Blood sugars have been uncontrolled and elevated recently likely secondary to acute infectious process Continue with home amiodarone, Lipitor, Imdur, Plavix and Pradaxa. Did speak with Dr. Bhatia's nurse practitioner car conditioner-JONEL Montana. We discussed chronic anticoagulation. She did report, we can discontinue aspirin at this time and can make this change on her home medication sheet. Continue with Plavix and Pradaxa for ongoing anticoagulation/antiplatelet. Hold Torsemide at time of admission. She normally takes 5 mg daily and adds another 5 mg PRN edema. Shoulder Xray reviewed by myself- No obvious fracture- Will wait for radiology read. SCDs to bilateral lower extremity for DVT prophylaxis Full Code ordered per pt request Will discuss further orders and plan of care with attending, Dr. Cardenas At time of discharge medical care will return to primary care provider, Dr Richmond and cardiology Dr Bhatia 05/30/2018 Plan Escherichia coli in one of 2 blood cultures. Urine culture pending. Creatinine has not changed greatly since admission and is 3.3 today. Urine output is approximately 600 ML's since admission yesterday afternoon Continue Rocephin 1 g IV daily. Continue current fluid rate and check chest x- ray to rule out pulmonary edema. Discuss with nephrology. Consider cautious potassium replacement Continue to avoid nephrotoxins. Continue to monitor urine output closely. Start renal/diabetic diet Pradaxa secondary to acute renal failure Hold Plavix until discussed with nephrology Repeat renal panel, magnesium, CBC tomorrow Check CPK today 05/31/2018 The patient's creatinine continues to trend up. Creatinine is 3.8 today up from 3.[address] with [address] Gonzalez, on-call for Dr. King. He stated that since the patient's urine output is doing well and breathing is improving, he would not recommend a change in treatment. He stated she likely had ATN and her creatinine may continue to climb for a day or 2, but that it should start improving. Regarding her hypokalemia, he did recommend 40 mEq of potassium 2 today and then rechecking her level. Magnesium is normal. Regarding Escherichia coli bacteremia secondary to UTI-this is sensitive to Rocephin. She appears to be improving. She has been afebrile. White count is slowly trending down. Bands today are 3 down from 20 yesterday. She will need a 2 week course of antibiotics due to bacteremia. We'll continue Plavix for coronary artery disease with stent in July 2018. Continue Pradaxa 75 mg twice daily (renal dose) for A. fib and prevention of stroke. Repeat basic metabolic profile this afternoon. Repeat renal panel and CBC tomorrow.
[2018-06-01] MEDS: CALCITRIOL 0.25 MCG CAPSULE PO SCH (12:08)
[2018-06-01] MEDS: AMLODIPINE 5 MG TABLET PO SCH (12:09)
[2018-06-01 17:01] VITALS: BMI 42.0
[2018-06-01] MEDS: CARVEDILOL 3.125 MG TABLET PO SCH (18:11)
[2018-06-01] MEDS: ATORVASTATIN 40 MG TABLET PO SCH (21:01)
[2018-06-01] MEDS: ALLOPURINOL 100 MG TABLET PO SCH (21:01)
[2018-06-01] MEDS: SALINE FLUSH 10ml SYRINGE IVF PRN (21:02)
[2018-06-02] MEDS: LEVOTHYROXINE 88 MCG TABLET PO SCH (05:47)
[2018-06-02] MEDS: PANTOPRAZOLE 40 MG TABLET PO SCH (05:47)
[2018-06-02] MEDS: ISOSORBIDE MONONITRATE ER 30 MG TABLET PO SCH ×2 (05:48→06:11)
[2018-06-02] MEDS: INSULIN ASPART 100unit/ml INJECTION SQ SCH ×3 (09:01→18:06)
[2018-06-02] MEDS: CLOPIDOGREL 75 MG TABLET PO SCH (09:02)
[2018-06-02] MEDS: INSULIN GLARGINE 100unit/ml INJECTION SQ SCH (09:02)
[2018-06-02] MEDS: MULTI-VITAMIN PLAIN TABLET PO SCH (09:02)
[2018-06-02] MEDS: AMIODARONE 200 MG TABLET PO SCH (09:02)
[2018-06-02] MEDS: AMLODIPINE 5 MG TABLET PO SCH (09:02)
[2018-06-02] MEDS: GUAIFENESIN 400MG TABLET PO SCH ×3 (09:03→20:51)
[2018-06-02] MEDS: DABIGATRAN 75 MG PO SCH ×2 (09:04→20:51)
[2018-06-02] MEDS: CARVEDILOL 3.125 MG TABLET PO SCH ×2 (09:04→16:37)
[2018-06-02] MEDS: CEFTRIAXONE 1 G in D5W 100 ML IV SCH (09:14)
[2018-06-02] MEDS: CALCITRIOL 0.25 MCG CAPSULE PO SCH (11:56)
--- NOTE | 2018-06-02 17:18 | Progress Note ---
- Date 06/02/18 Subjective: The patient was seen this afternoon in her room. She is feeling quite well. She had a very large bowel movement this morning. She is eating and drinking well. She continues to have good urine output. Her creatinine is slowly decreasing. She denies any pain. She denies shortness of breath. Objective Vital signs: Temperature 97.5 F 06/02/18 16:00 Pulse Rate 63 06/02/18 16:00 Respiratory Rate 15 06/02/18 16:00 Blood Pressure 156/73 H 06/02/18 16:00 Pulse Oximetry 97 06/02/18 16:00 Height/Weight/BMI: Height 1.55 m Weight 97.5 kg Body Mass Index 42.0 Comments: Afebrile, pulse 63, blood pressure 156/73, O2 sat 97% on room air I&O yesterday 1860/1675 Urine output today so far is 1950 Weight is 97.5 kg which is almost down to her admission weight of 96.6 kg GEN-alert, oriented, no acute distress HEENT-sclera anicteric, oropharynx is moist NECK-supple CV-regular rate and rhythm CHEST-clear to auscultation bilaterally ABD-soft, nontender with positive bowel sounds -Salazar in place with good urine output EXT-no edema NEURO-no focal deficits SKIN-warm and dry and without rashes Results - Labs CBC & Chem 7: 06/02/18 04:32 06/02/18 04:32 Labs: Phosphorus is mildly up to 4.7, calcium 8.6, albumin 2.9 Microbiology Results: Microbiology 05/29/18 13:29 Urine, Cath Straight Urine Culture - Final Escherichia coli 05/29/18 13:34 Peripheral/Iv Start Gram Stain - Final 05/29/18 13:34 Peripheral/Iv Start Blood Culture - Final Escherichia coli 05/29/18 13:29 Peripheral/Iv Start Gram Stain - Final 05/29/18 13:29 Peripheral/Iv Start Blood Culture - Final Escherichia coli Assessment and Plan (1) JOHAN (acute kidney injury) Current visit: Yes Status: Acute Assessment and Plan: Impression Sepsis- Criteria - SIRS + UTI. Leukocytosis- 13.7, Bandemia- 19% UTI-E. coli sensitive to all antibiotics tested Escherichia coli bacteremia-in both blood cultures with same sensitivity pattern JOHAN- [employer] 3.4 on admission. Creatinine was as high as 3.8, now trending down. Baseline 1.8 DM- type 2 hypoGlycemia Encephalopathy on admission-resolved Acute hypoxic respiratory failure -currently on 2 L-secondary to pulmonary edema /fluid overload-resolved Pulmonary edema secondary to fluid overload Hyponatremia- POA-resolved [id number] Right shoulder contusion- POA Coronary disease Congestive heart failure Atrial fibrillation. Chronic anticoagulation with Pradaxa GERD Peripheral neuropathy Apnea Chest pain-likely musculoskeletal-troponin negative 3 Plan And then continues to slowly improve and is now 3.1. Bicarbonate has improved to 20. The patient continues to diurese well without needing diuretics. Weight is slowly returning to baseline. We'll try to touch base with the covering neurologist today. Continue Coreg and Norvasc which were started for hypertension this hospitalization Continue Salazar catheter for now Continue on reduced dose of Pradaxa. When renal function improves, she may need to go back to her previous dose Regarding Escherichia coli UTI and bacteremia, she has been doing well on Rocephin. Could consider changing to oral Levaquin at renal dosing for ease of administration. She will need a total of 2 weeks of antibiotics for Escherichia coli bacteremia. Continue Plavix for coronary artery disease with history of stent in July 2017 Will decrease Lantus insulin due to episodes of hypoglycemia today. - Physician Narrative Narrative: Date: 06/02/18 Time: 1711 Hospital Course Summary Disclaimer: The visit summary below is not to be considered part of the above Progress Note. Hospital Course: Impression Sepsis- Criteria - SIRS + UTI. Leukocytosis- 13.7, Bandemia- 19% UTI JOHAN- [employer] 3.4 on admission. Baseline 1.8 DM- type 2 with hyperglycemia Hyponatremia- POA Hypokalemia-POA Right shoulder contusion- POA Coronary disease Congestive heart failure Atrial fibrillation. GERD Peripheral neuropathy Apnea Plan Admit patient, inpatient status and care of Dr. Cardenas for sepsis, UTI with acute kidney injury Initial lactate was normal in the emergency room at 1.6. Cultures and urine culture have been obtained. Patient was placed on IV Rocephin for antimicrobial coverage. Patient was given 500 mL bolus in the emergency room. We will repeat another 500 mL bolus of normal saline and decrease rate to 125 mL/hr for ongoing hydration Will place Salazar catheter to monitor at urinary output. Recheck BMP at 1800 tonight to follow electrolytes and renal function Accuchecks QID. Continue on home insulin , Humalog 25 units with meals, Lantus 60 units twice a day. Blood sugars have been uncontrolled and elevated recently likely secondary to acute infectious process Continue with home amiodarone, Lipitor, Imdur, Plavix and Pradaxa. Did speak with Dr. Bhatia's nurse practitioner regional facilities specialist-JONEL [place]. We discussed chronic anticoagulation. She did report, we can discontinue aspirin at this time and can make this change on her home medication sheet. Continue with Plavix and Pradaxa for ongoing anticoagulation/antiplatelet. Hold Torsemide at time of admission. She normally takes 5 mg daily and adds another 5 mg PRN edema. Shoulder Xray reviewed by myself- No obvious fracture- Will wait for radiology read. SCDs to bilateral lower extremity for DVT prophylaxis Full Code ordered per pt request Will discuss further orders and plan of care with attending, Dr. Cardenas At time of discharge medical care will return to primary care provider, Dr Richmond and cardiology Dr Bhatia 05/30/2018 Plan Escherichia coli in one of 2 blood cultures. Urine culture pending. Creatinine has not changed greatly since admission and is 3.3 today. Urine output is approximately 600 ML's since admission yesterday afternoon Continue Rocephin 1 g IV daily. Continue current fluid rate and check chest x- ray to rule out pulmonary edema. Discuss with nephrology. Consider cautious potassium replacement Continue to avoid nephrotoxins. Continue to monitor urine output closely. Start renal/diabetic diet Pradaxa secondary to acute renal failure Hold Plavix until discussed with nephrology Repeat renal panel, magnesium, CBC tomorrow Check CPK today 05/31/2018 The patient's creatinine continues to trend up. Creatinine is 3.8 today up from 3.[address] Gonzalez, on-call for Dr. King. He stated that since the patient's urine output is doing well and breathing is improving, he would not recommend a change in treatment. He stated she likely had ATN and her creatinine may continue to climb for a day or 2, but that it should start improving. Regarding her hypokalemia, he did recommend 40 mEq of potassium 2 today and then rechecking her level. Magnesium is normal. Regarding Escherichia coli bacteremia secondary to UTI-this is sensitive to Rocephin. She appears to be improving. She has been afebrile. White count is slowly trending down. Bands today are 3 down from 20 yesterday. She will need a 2 week course of antibiotics due to bacteremia. We'll continue Plavix for coronary artery disease with stent in July 2018. Continue Pradaxa 75 mg twice daily (renal dose) for A. fib and prevention of stroke. Repeat basic metabolic profile this afternoon. Repeat renal panel and CBC tomorrow. 06/01/2018 Creatinine is now improving and is down to 3.3. Bicarbonate is down from 22--> 16 with a normal anion gap. She has elevation of blood pressure in the 160s to 170s. I did discuss the patient with Dr. Lilly, and he recommended watching bicarbonate at this time. Regarding blood pressure, he recommended Norvasc 5 mg daily and Coreg 3.125 mg twice daily. We'll continue with Salazar catheter. Pulmonary edema has improved and the patient is on room air Continue with renal dose Pradaxa for atrial fibrillation. Continue Plavix for coronary artery disease with history of stent. Hypokalemia has resolved. Repeat CBC and renal panel tomorrow. Continue Rocephin for UTI. She will need a two-week course of antibiotics for bacteremia. 06/02/2018 And then continues to slowly improve and is now 3.1. Bicarbonate has improved to 20. The patient continues to diurese well without needing diuretics. Weight is slowly returning to baseline. We'll try to touch base with the covering neurologist today. Continue Coreg and Norvasc which were started for hypertension this hospitalization Continue Salazar catheter for now Continue on reduced dose of Pradaxa. When renal function improves, she may need to go back to her previous dose Regarding Escherichia coli UTI and bacteremia, she has been doing well on Rocephin. Could consider changing to oral Levaquin at renal dosing for ease of administration. She will need a total of 2 weeks of antibiotics for Escherichia coli bacteremia. Continue Plavix for coronary artery disease with history of stent in July 2017 Will decrease Lantus insulin due to episodes of hypoglycemia today.
[2018-06-02] MEDS: ALLOPURINOL 100 MG TABLET PO SCH (20:51)
[2018-06-02] MEDS: ATORVASTATIN 40 MG TABLET PO SCH (20:51)
[2018-06-02] MEDS: SALINE FLUSH 10ml SYRINGE IVF PRN (20:54)
[2018-06-02] MEDS ORDERED: INSULIN GLARGINE 100unit/ml INJECTION SQ SCH (21:00)
[2018-06-03] MEDS: ISOSORBIDE MONONITRATE ER 30 MG TABLET PO SCH (06:03)
[2018-06-03] MEDS: LEVOTHYROXINE 88 MCG TABLET PO SCH (06:03)
[2018-06-03] MEDS: SALINE FLUSH 10ml SYRINGE IVF PRN ×2 (06:03→09:23)
[2018-06-03] MEDS: PANTOPRAZOLE 40 MG TABLET PO SCH (06:03)
[2018-06-03] MEDS: GUAIFENESIN 400MG TABLET PO SCH ×3 (09:22→20:46)
[2018-06-03] MEDS: MULTI-VITAMIN PLAIN TABLET PO SCH (09:22)
[2018-06-03] MEDS: CLOPIDOGREL 75 MG TABLET PO SCH (09:22)
[2018-06-03] MEDS: AMIODARONE 200 MG TABLET PO SCH (09:22)
[2018-06-03] MEDS: DABIGATRAN 75 MG PO SCH ×2 (09:22→20:45)
[2018-06-03] MEDS: POLYETHYL GLYCOL 3350 17gm PACKET PO SCH (09:22)
[2018-06-03] MEDS: CEFTRIAXONE 1 G in D5W 100 ML IV SCH (09:23)
[2018-06-03] MEDS: AMLODIPINE 5 MG TABLET PO SCH (09:23)
[2018-06-03] MEDS: CARVEDILOL 3.125 MG TABLET PO SCH ×2 (09:23→17:54)
[2018-06-03] MEDS ORDERED: NS FLUSH BAG 500ml IV PRN (09:24)
--- NOTE | 2018-06-03 12:06 | Progress Note ---
- Date 06/03/18 Subjective: Patient resting in bed at the time of interview. Subjectively, states feeling better when compared to yesterday. Patient able to ambulate with PT assistance to the room entrance and back. Patient had episodes of hypoglycemia, blood sugar as low as 56, insulin was held last evening. Fasting blood sugar 89 this morning, repeat blood sugar 238. We'll continue to hold Lantus. Restarted home medications insulin aspart 25 units subcutaneous 3 times a day before meals. Case discussed with pharmacist, IV Rocephin discontinued and planned to start oral Levaquin 250 mg 1 dose this evening and based on renal function, plan to continue Levaquin tomorrow. Serum creatinine improved to 2.6, estimated GFR 21. WBC count 13,100. Patient afebrile overnight. Awaiting callback from patient's educational technology specialist, Dr. Anabell King partner credit verification clerk to discuss regarding discontinuing Salazar catheter, adding medication for blood pressure. Patient has -1.8 L fluid balance over the past 24 hours. Patient also has a 1.3 kg weight loss. Objective Vital signs: Temperature 96.6 F L 06/03/18 11:00 Pulse Rate 68 06/03/18 11:00 Respiratory Rate 16 06/03/18 11:00 Blood Pressure 155/71 H 06/03/18 11:00 Pulse Oximetry 96 06/03/18 11:00 Height/Weight/BMI: Height 1.55 m Weight 98.4 kg Body Mass Index 42.0 - Additional findings Additional findings: General: Alert, awake, oriented 3. Not in acute distress. Head: Pupils equal, round, reactive to light and accommodation. Extraocular movements intact. Neck: No elevation in JVP. No pharyngeal erythema noted. Chest: The patient does not use accessory muscles for breathing. Lungs: Breath sounds audible on auscultation bilateral lung allred. No wheezing , no rhonchi, no crepitations, no crackles. No pleural rub. CVS: S1, S2 heard on auscultation. Normal rate and rhythm. No murmur, no S3/S4 gallops. Abdomen: Soft, nontender, no distention. Bowel sounds appreciated on auscultation. : No flank tenderness, no suprapubic distention or tenderness. Skin: No rashes, no induration, no erythema. Capillary refill less than 4 seconds. Extremities: No evidence of pedal edema bilateral lower extremities. No calf tenderness bilaterally. Palpable dorsalis pedis and posterior tibial pulses bilateral lower extremities. STATUE MAKER: Strength 5/5 bilateral upper and lower extremities. Sensations intact. No slurred speech, no facial droop. No discernible focal neurological deficits. Results - Labs CBC & Chem 7: 06/03/18 04:17 06/03/18 04:17 Microbiology Results: Microbiology 05/29/18 13:29 Urine, Cath Straight Urine Culture - Final Escherichia coli 05/29/18 13:34 Peripheral/Iv Start Gram Stain - Final 05/29/18 13:34 Peripheral/Iv Start Blood Culture - Final Escherichia coli 05/29/18 13:29 Peripheral/Iv Start Gram Stain - Final 05/29/18 13:29 Peripheral/Iv Start Blood Culture - Final Escherichia coli Assessment and Plan (1) JOHAN (acute kidney injury) Current visit: Yes Status: Acute Assessment and Plan: Impression Sepsis- Criteria - SIRS + UTI. Leukocytosis- 13.7, Bandemia- 19%, resolved UTI-E. coli sensitive to all antibiotics tested Escherichia coli bacteremia-in both blood cultures with same sensitivity pattern JOHAN- Torch Brazer 3.4 on admission. Creatinine was as high as 3.8, now trending down. Baseline 1.8 DM- type 2 Hypoglycemia, resolving Encephalopathy on admission-resolved Acute hypoxic respiratory failure -currently on 2 L-secondary to pulmonary edema /fluid overload-resolved Pulmonary edema secondary to fluid overload Hyponatremia- POA-resolved [id number] Right shoulder contusion- POA Coronary disease Congestive heart failure Atrial fibrillation. Chronic anticoagulation with Pradaxa GERD Peripheral neuropathy Apnea Chest pain-likely musculoskeletal-troponin negative 3 Plan Serum creatinine 2.6 today when compared to 3.1 yesterday. Estimated GFR 21. Plan to discontinue IV Rocephin. We will provide 250 mg oral Levaquin 1 dose this evening and plan to provide to 50 mg by mouth daily from tomorrow based on renal function. She will need a total of 2 weeks of antibiotics for Escherichia coli bacteremia. Case discussed with pharmacist. Awaiting callback from patient' s educational technology specialist, Dr. Anabell King partner credit verification clerk with regards to discontinuing Salazar catheter and adding blood pressure medication. Continue Coreg and Norvasc which were started for hypertension this hospitalization Continue on reduced dose of Pradaxa. When renal function improves, she may need to go back to her previous dose Fasting blood sugar 89, later on blood sugar increased to 238. Will restart home medications insulin aspart 25 units subcutaneous 3 times a day before meals. We'll monitor blood sugars. Plan to hold Lantus for now. Continue Plavix for coronary artery disease with history of stent in July 2017. DVT Prophylaxis: Pradaxa GI Prophylaxis: Protonix Resuscitation Status: Full Code - Time spent with patient Time with patient PN: 35 minutes - Physician Narrative Narrative: Date: 06/03/18 Time: 1202 Hospital Course Summary Disclaimer: The visit summary below is not to be considered part of the above Progress Note. Hospital Course: Impression Sepsis- Criteria - SIRS + UTI. Leukocytosis- 13.7, Bandemia- 19% UTI JOHAN- Torch Brazer 3.4 on admission. Baseline 1.8 DM- type 2 with hyperglycemia Hyponatremia- POA Hypokalemia-POA Right shoulder contusion- POA Coronary disease Congestive heart failure Atrial fibrillation. GERD Peripheral neuropathy Apnea Plan Admit patient, inpatient status and care of Dr. Cardenas for sepsis, UTI with acute kidney injury Initial lactate was normal in the emergency room at 1.6. Cultures and urine culture have been obtained. Patient was placed on IV Rocephin for antimicrobial coverage. Patient was given 500 mL bolus in the emergency room. We will repeat another 500 mL bolus of normal saline and decrease rate to 125 mL/hr for ongoing hydration Will place Salazar catheter to monitor at urinary output. Recheck BMP at 1800 tonight to follow electrolytes and renal function Accuchecks QID. Continue on home insulin , Humalog 25 units with meals, Lantus 60 units twice a day. Blood sugars have been uncontrolled and elevated recently likely secondary to acute infectious process Continue with home amiodarone, Lipitor, Imdur, Plavix and Pradaxa. Did speak with Dr. Bhatia's nurse practitioner credit verification clerk-JONEL [place]. We discussed chronic anticoagulation. She did report, we can discontinue aspirin at this time and can make this change on her home medication sheet. Continue with Plavix and Pradaxa for ongoing anticoagulation/antiplatelet. Hold Torsemide at time of admission. She normally takes 5 mg daily and adds another 5 mg PRN edema. Shoulder Xray reviewed by myself- No obvious fracture- Will wait for radiology read. SCDs to bilateral lower extremity for DVT prophylaxis Full Code ordered per pt request Will discuss further orders and plan of care with attending, Dr. Cardenas At time of discharge medical care will return to primary care provider, Dr Richmond and cardiology Dr Bhatia 05/30/2018 Plan Escherichia coli in one of 2 blood cultures. Urine culture pending. Creatinine has not changed greatly since admission and is 3.3 today. Urine output is approximately 600 ML's since admission yesterday afternoon Continue Rocephin 1 g IV daily. Continue current fluid rate and check chest x- ray to rule out pulmonary edema. Discuss with nephrology. Consider cautious potassium replacement Continue to avoid nephrotoxins. Continue to monitor urine output closely. Start renal/diabetic diet Pradaxa secondary to acute renal failure Hold Plavix until discussed with nephrology Repeat renal panel, magnesium, CBC tomorrow Check CPK today 05/31/2018 The patient's creatinine continues to trend up. Creatinine is 3.8 today up from 3.[address] Gonzalez, on-call for Dr. King. He stated that since the patient's urine output is doing well and breathing is improving, he would not recommend a change in treatment. He stated she likely had ATN and her creatinine may continue to climb for a day or 2, but that it should start improving. Regarding her hypokalemia, he did recommend 40 mEq of potassium 2 today and then rechecking her level. Magnesium is normal. Regarding Escherichia coli bacteremia secondary to UTI-this is sensitive to Rocephin. She appears to be improving. She has been afebrile. White count is slowly trending down. Bands today are 3 down from 20 yesterday. She will need a 2 week course of antibiotics due to bacteremia. We'll continue Plavix for coronary artery disease with stent in July 2018. Continue Pradaxa 75 mg twice daily (renal dose) for A. fib and prevention of stroke. Repeat basic metabolic profile this afternoon. Repeat renal panel and CBC tomorrow. 06/01/2018 Creatinine is now improving and is down to 3.3. Bicarbonate is down from 22--> 16 with a normal anion gap. She has elevation of blood pressure in the 160s to 170s. I did discuss the patient with Dr. Lilly, and he recommended watching bicarbonate at this time. Regarding blood pressure, he recommended Norvasc 5 mg daily and Coreg 3.125 mg twice daily. We'll continue with Salazar catheter. Pulmonary edema has improved and the patient is on room air Continue with renal dose Pradaxa for atrial fibrillation. Continue Plavix for coronary artery disease with history of stent. Hypokalemia has resolved. Repeat CBC and renal panel tomorrow. Continue Rocephin for UTI. She will need a two-week course of antibiotics for bacteremia. 06/02/2018 And then continues to slowly improve and is now 3.1. Bicarbonate has improved to 20. The patient continues to diurese well without needing diuretics. Weight is slowly returning to baseline. We'll try to touch base with the covering neurologist today. Continue Coreg and Norvasc which were started for hypertension this hospitalization Continue Salazar catheter for now Continue on reduced dose of Pradaxa. When renal function improves, she may need to go back to her previous dose Regarding Escherichia coli UTI and bacteremia, she has been doing well on Rocephin. Could consider changing to oral Levaquin at renal dosing for ease of administration. She will need a total of 2 weeks of antibiotics for Escherichia coli bacteremia. Continue Plavix for coronary artery disease with history of stent in July 2017 Will decrease Lantus insulin due to episodes of hypoglycemia today. 06/03/2018 Serum creatinine 2.6 today when compared to 3.1 yesterday. Estimated GFR 21. Plan to discontinue IV Rocephin. We will provide 250 mg oral Levaquin 1 dose this evening and plan to provide to 50 mg by mouth daily from tomorrow based on renal function. She will need a total of 2 weeks of antibiotics for Escherichia coli bacteremia. Case discussed with pharmacist. Awaiting callback from patient' s educational technology specialist, Dr. Anabell King partner credit verification clerk with regards to discontinuing Salazar catheter and adding blood pressure medication. Continue Coreg and Norvasc which were started for hypertension this hospitalization Continue on reduced dose of Pradaxa. When renal function improves, she may need to go back to her previous dose Fasting blood sugar 89, later on increased to 238. Will restart home medications insulin aspart 24 units subcutaneous 3 times a day before meals. We' ll monitor blood sugars. Plan to hold Lantus for now. Continue Plavix for coronary artery disease with history of stent in July 2017
[2018-06-03] MEDS: CALCITRIOL 0.25 MCG CAPSULE PO SCH (13:03)
[2018-06-03] MEDS: INSULIN ASPART 100unit/ml INJECTION SQ SCH ×2 (13:03→17:53)
[2018-06-03] MEDS: TRAMADOL 50 MG TABLET PO PRN (16:21)
[2018-06-03] MEDS: ACETAMINOPHEN 325 MG TABLET PO PRN (17:59)
[2018-06-03] MEDS: ATORVASTATIN 40 MG TABLET PO SCH (20:45)
[2018-06-03] MEDS: ALLOPURINOL 100 MG TABLET PO SCH (20:45)
[2018-06-04] MEDS: LEVOTHYROXINE 88 MCG TABLET PO SCH (06:45)
[2018-06-04] MEDS: ISOSORBIDE MONONITRATE ER 30 MG TABLET PO SCH (06:45)
[2018-06-04] MEDS: PANTOPRAZOLE 40 MG TABLET PO SCH (06:45)
[2018-06-04] MEDS: CLOPIDOGREL 75 MG TABLET PO SCH (08:26)
[2018-06-04] MEDS: INSULIN ASPART 100unit/ml INJECTION SQ SCH ×2 (08:26→12:29)
[2018-06-04] MEDS: DABIGATRAN 75 MG PO SCH (08:26)
[2018-06-04] MEDS: AMLODIPINE 5 MG TABLET PO SCH (08:27)
[2018-06-04] MEDS: GUAIFENESIN 400MG TABLET PO SCH ×2 (08:27→14:59)
[2018-06-04] MEDS: ACETAMINOPHEN 325 MG TABLET PO PRN ×2 (08:27→14:05)
[2018-06-04] MEDS: CARVEDILOL 3.125 MG TABLET PO SCH (08:27)
[2018-06-04] MEDS: AMIODARONE 200 MG TABLET PO SCH (08:27)
[2018-06-04] MEDS: MULTI-VITAMIN PLAIN TABLET PO SCH (08:27)
[2018-06-04] MEDS: SALINE FLUSH 10ml SYRINGE IVF PRN (08:28)
[2018-06-04] MEDS: CALCITRIOL 0.25 MCG CAPSULE PO SCH (12:29)
[2018-06-04 12:35] VITALS: BP 143/65; PULSE 61; RESP 16; TEMP 97.4; O2SAT 97
--- NOTE | 2018-06-04 13:15 | Discharge Summary ---
Discharge Information Date of admission: 05/29/18 14:27 Anticipated date of discharge: 06/04/18 Attending Physician: Vickey Jacobo MD Primary care physician: Crow Richmond MD Consults: 06/01/18 11:07 Doctor [Physician Consult] [CONS] Routine Consulting Provider: Zoe Sims Reason For Exam: snu need Ordering Provider has Notified Gasket Supervisor: Yes - Discharge Diagnosis (1) JOHAN (acute kidney injury) Status: Resolved Sepsis with Escherichia coli, resolved UTI with Escherichia coli, resolved JOHAN, serum creatinine peaked at 3.8, improved to 2.6 prior to discharge DM type 2 with hyperglycemia Episode of hypoglycemia, resolved Encephalopathy on admission-resolved Hyponatremia- POA Hypokalemia-POA Right shoulder contusion- POA Coronary disease Congestive heart failure Atrial fibrillation, anticoagulated on pradaxa GERD Peripheral neuropathy Apnea - Laboratory Labs: 06/04/18 11:32 06/04/18 11:32 Blood culture 2, urine culture grew out pansensitive Escherichia coli. - Microbiology Microbiology 05/29/18 13:29 Urine, Cath Straight Urine Culture - Final Escherichia coli 05/29/18 13:34 Peripheral/Iv Start Gram Stain - Final 05/29/18 13:34 Peripheral/Iv Start Blood Culture - Final Escherichia coli 05/29/18 13:29 Peripheral/Iv Start Gram Stain - Final 05/29/18 13:29 Peripheral/Iv Start Blood Culture - Final Escherichia coli - Radiology Radiology: CT scan of the head performed on 05/29/2018 IMPRESSION: No acute intracranial abnormality or hemorrhage. Portable chest x-ray performed on 05/29/2018 IMPRESSION: Stable appearance of the chest without acute cardiopulmonary disease. Portable chest x-ray repeated on 06/01/2018 Impression: No significant change in the mild pulmonary edema pattern. History of Present Illness HPI: Patient is a 73-year-old female who presented to the emergency room today for acute evaluation of weakness, fatigue. Patient reports she has not felt well for the past 3 days. Her weakness, fatigue, continued to worsen. She has had little oral intake of the past several days, however has had elevation of blood sugars into the 300- 400s. Further evaluation in the emergency room was performed. Patient was found to have leukocytosis with a white count of 13.7, neutrophils 73% with 19% bandemia. Lactate was normal at 1.6. Hemoglobin is slightly low, however stable at 10.5, hematocrit 32.3, platelet count 148. Sodium to be slightly low at 135 and potassium of 3.4. Renal function is abnormally elevated with a BUN of 46 and a creatinine of 3.4. Baseline creatinine appears to be 1.8 on 04/23/2018. A urinalysis was obtained, indicating 3+ protein, glucose, blood, bilirubin, 1+ leukocyte esterase with too numerous to count WBCs with 4+ bacteria. Cultures were obtained in the emergency room as well as a urine culture. Patient was given normal saline 500 mL bolus followed by 1 gram of IV Rocephin for antimicrobial coverage. Hospitalist services were contacted and accepted patient for inpatient admission for further evaluation and treatment. She is seen initially while in the emergency room. She is alert, oriented and appears to be fatigued and ill. Her daughter, CINTHYA is at the bedside. She reports a three-day history of feeling fatigued and weak. She reports her blood sugars have been up in the 400s. Fasting sugar this morning was 287. Daughter reports patient had a cardiac arrest in 2010 requiring defibrillation. Since that time. She notes that she has had some intermittent episodes of "end organ damage". patient has been able to reside independently at home. She notes that over the past weeks to months she has had more pain in the lower extremities and has been undergoing outpatient physical therapy. She is recently requiring a walker to ambulate at home. On exam, and patient does complain of right shoulder pain with a small abrasion. Patient thinks that she bumped into the door frame last evening when getting up to ambulate. She denies having nausea, vomiting, abdominal pain or diarrhea. She does report feeling "gassy" and having increased belching. She does describe increased urinary incontinence over the past 3 days. Objective Vital signs: Temperature 97.4 F 06/04/18 12:35 Pulse Rate 61 06/04/18 12:35 Respiratory Rate 16 06/04/18 12:35 Blood Pressure 143/65 H 06/04/18 12:35 Pulse Oximetry 97 06/04/18 12:35 Height/Weight/BMI: Height 1.55 m Weight 98.2 kg Body Mass Index 42.0 - Additional findings Additional findings: General: Alert, awake, oriented 3. Not in acute distress. Head: Pupils equal, round, reactive to light and accommodation. Extraocular movements intact. Neck: No elevation in JVP. No pharyngeal erythema noted. Chest: The patient does not use accessory muscles for breathing. Lungs: Breath sounds audible on auscultation bilateral lung allred. No wheezing , no rhonchi, no crepitations, no crackles. No pleural rub. CVS: S1, S2 heard on auscultation. Normal rate and rhythm. No murmur, no S3/S4 gallops. Abdomen: Soft, nontender, no distention. Bowel sounds appreciated on auscultation. : No flank tenderness, no suprapubic distention or tenderness. Skin: No rashes, no induration, no erythema. Capillary refill less than 4 seconds. Extremities: No evidence of pedal edema bilateral lower extremities. No calf tenderness bilaterally. Palpable dorsalis pedis and posterior tibial pulses bilateral lower extremities. FLUX PLANT OPERATOR: Strength 5/5 bilateral upper and lower extremities. Sensations intact. No slurred speech, no facial droop. No discernible focal neurological deficits. Hospital Course This is a general summary of the patient's hospital course. For more details refer to the complete medical record. Hospital course: Impression Sepsis- Criteria - SIRS + UTI. Leukocytosis- 13.7, Bandemia- 19% UTI JOHAN- Quality Internship 3.4 on admission. Baseline 1.8 DM- type 2 with hyperglycemia Hyponatremia- POA Hypokalemia-POA Right shoulder contusion- POA Coronary disease Congestive heart failure Atrial fibrillation. GERD Peripheral neuropathy Apnea Plan Admit patient, inpatient status and care of Dr. Cardenas for sepsis, UTI with acute kidney injury Initial lactate was normal in the emergency room at 1.6. Cultures and urine culture have been obtained. Patient was placed on IV Rocephin for antimicrobial coverage. Patient was given 500 mL bolus in the emergency room. We will repeat another 500 mL bolus of normal saline and decrease rate to 125 mL/hr for ongoing hydration Will place Salazar catheter to monitor at urinary output. Recheck BMP at 1800 tonight to follow electrolytes and renal function Accuchecks QID. Continue on home insulin , Humalog 25 units with meals, Lantus 60 units twice a day. Blood sugars have been uncontrolled and elevated recently likely secondary to acute infectious process Continue with home amiodarone, Lipitor, Imdur, Plavix and Pradaxa. Did speak with Dr. Bhatia's nurse practitioner human resources professional-JONEL [place]. We discussed chronic anticoagulation. She did report, we can discontinue aspirin at this time and can make this change on her home medication sheet. Continue with Plavix and Pradaxa for ongoing anticoagulation/antiplatelet. Hold Torsemide at time of admission. She normally takes 5 mg daily and adds another 5 mg PRN edema. Shoulder Xray reviewed by myself- No obvious fracture- Will wait for radiology read. SCDs to bilateral lower extremity for DVT prophylaxis Full Code ordered per pt request Will discuss further orders and plan of care with attending, Dr. Cardenas At time of discharge medical care will return to primary care provider, Dr Richmond and cardiology Dr Bhatia 05/30/2018 Plan Escherichia coli in one of 2 blood cultures. Urine culture pending. Creatinine has not changed greatly since admission and is 3.3 today. Urine output is approximately 600 ML's since admission yesterday afternoon Continue Rocephin 1 g IV daily. Continue current fluid rate and check chest x- ray to rule out pulmonary edema. Discuss with nephrology. Consider cautious potassium replacement Continue to avoid nephrotoxins. Continue to monitor urine output closely. Start renal/diabetic diet Pradaxa secondary to acute renal failure Hold Plavix until discussed with nephrology Repeat renal panel, magnesium, CBC tomorrow Check CPK today 05/31/2018 The patient's creatinine continues to trend up. Creatinine is 3.8 today up from 3.[address] Gonzalez, on-call for Dr. King. He stated that since the patient's urine output is doing well and breathing is improving, he would not recommend a change in treatment. He stated she likely had ATN and her creatinine may continue to climb for a day or 2, but that it should start improving. Regarding her hypokalemia, he did recommend 40 mEq of potassium 2 today and then rechecking her level. Magnesium is normal. Regarding Escherichia coli bacteremia secondary to UTI-this is sensitive to Rocephin. She appears to be improving. She has been afebrile. White count is slowly trending down. Bands today are 3 down from 20 yesterday. She will need a 2 week course of antibiotics due to bacteremia. We'll continue Plavix for coronary artery disease with stent in July 2018. Continue Pradaxa 75 mg twice daily (renal dose) for A. fib and prevention of stroke. Repeat basic metabolic profile this afternoon. Repeat renal panel and CBC tomorrow. 06/01/2018 Creatinine is now improving and is down to 3.3. Bicarbonate is down from 22--> 16 with a normal anion gap. She has elevation of blood pressure in the 160s to 170s. I did discuss the patient with Dr. Lilly, and he recommended watching bicarbonate at this time. Regarding blood pressure, he recommended Norvasc 5 mg daily and Coreg 3.125 mg twice daily. We'll continue with Salazar catheter. Pulmonary edema has improved and the patient is on room air Continue with renal dose Pradaxa for atrial fibrillation. Continue Plavix for coronary artery disease with history of stent. Hypokalemia has resolved. Repeat CBC and renal panel tomorrow. Continue Rocephin for UTI. She will need a two-week course of antibiotics for bacteremia. 06/02/2018 And then continues to slowly improve and is now 3.1. Bicarbonate has improved to 20. The patient continues to diurese well without needing diuretics. Weight is slowly returning to baseline. We'll try to touch base with the covering neurologist today. Continue Coreg and Norvasc which were started for hypertension this hospitalization Continue Salazar catheter for now Continue on reduced dose of Pradaxa. When renal function improves, she may need to go back to her previous dose Regarding Escherichia coli UTI and bacteremia, she has been doing well on Rocephin. Could consider changing to oral Levaquin at renal dosing for ease of administration. She will need a total of 2 weeks of antibiotics for Escherichia coli bacteremia. Continue Plavix for coronary artery disease with history of stent in July 2017 Will decrease Lantus insulin due to episodes of hypoglycemia today. 06/03/2018 Serum creatinine 2.6 today when compared to 3.1 yesterday. Estimated GFR 21. Plan to discontinue IV Rocephin. We will provide 250 mg oral Levaquin 1 dose this evening and plan to provide to 50 mg by mouth daily from tomorrow based on renal function. She will need a total of 2 weeks of antibiotics for Escherichia coli bacteremia. Case discussed with pharmacist. Awaiting callback from patient' s food service substitute, Dr. Anabell King partner human resources professional with regards to discontinuing Salazar catheter and adding blood pressure medication. Continue Coreg and Norvasc which were started for hypertension this hospitalization Continue on reduced dose of Pradaxa. When renal function improves, she may need to go back to her previous dose Fasting blood sugar 89, later on increased to 238. Will restart home medications insulin aspart 24 units subcutaneous 3 times a day before meals. We' ll monitor blood sugars. Plan to hold Lantus for now. Continue Plavix for coronary artery disease with history of stent in July 2017 06/04/2018 Repeat blood tests today shows hemoglobin dropped slightly to 8.9 and compared to 10.1 yesterday. Serum creatinine 2.6 today, BUNs 56. Subjectively, patient states feeling better and reports wanting to be discharged to custodial for further physical therapy and rehabilitation. Case discussed with food service substitute human resources professional for Dr. Anabell King with [facility], Dr. Gonzalez and recommendation for patient to be discharged and repeat labs CBC, renal profile next week. Agreeable with plan to initiate bladder training and Salazar catheter to be removed at the custodial once patient meets criteria. Patient received IV Rocephin during hospital stay and 1 dose of 250 mg oral Levaquin. At the time of discharge, patient placed on 2 week course of Augmentin 250/125 mg by mouth twice a day. Time spent with patient: discharge greater than 30 minutes Resuscitation Status: Full Code Discharge Plan - Discharge Disposition Discharge Date: 06/04/18 (to [facility] [place] facility) Dis[place] 03 [place] [facility] [place] *Condition: Improved Reason For Visit (Visit label in EMR): UTI - Discharge Medications *Discharge Medications: New Carvedilol [Coreg] 3.125 mg PO BIDWM #60 tab Dabigatran [Pradaxa] 75 mg PO BID #20 cap Insulin Glargine,Hum.rec.anlog [Lantus] 45 unit SQ BID vial Amoxicillin/Potassium Clav [Amox-Clav 250-125 mg Tablet] 1 tab PO BIDWM #28 tablet Amlodipine [Norvasc] 5 mg PO DAILY #30 tab Continue Atorvastatin [Lipitor] 80 mg PO HS #0 Calcitriol [Rocaltrol] 0.25 mcg PO QMWF Allopurinol [Zyloprim] 100 mg PO HS Isosorbide Mononitrate ER [Imdur] 30 mg PO DAILY Mupirocin Ointment [Bactroban Ointmment] 1 applicatio TOP DAILY PRN PRN Reason: Prn Orders Clopidogrel [Plavix] 75 mg PO DAILY #30 tab Pantoprazole Sodium [Protonix] 40 mg PO DAILY Levothyroxine Sodium 88 mcg PO DAILY Acetaminophen [Tylenol] 650 mg PO Q8H PRN PRN Reason: Pain PEG 3350 17gm PACKET [Miralax] 17 gm PO Q2D Cholecalciferol (Vitamin D3) [Vitamin D3] 10,000 unit PO DAILY Torsemide 5 - 10 mg PO DAILY Tramadol [Ultram] 50 mg PO BID Fish Oil/Dha/Epa [Fish Oil 1,200 mg Fish Oil] 3 cap PO DAILY Amiodarone [Pacerone] 200 mg PO DAILY #30 tab Ferrous Sulfate [Iron] 325 mg PO DAILY multivitamin capsule 1 cap PO DAILY cap Humalog KwikPen (insulin lispro) 100 unit/mL SQ PEN 25 unit SQ TIDWM 40 Days ml Discontinued Dabigatran [Pradaxa] 150 mg PO BID Aspirin *EC* [Ecotrin] 81 mg PO DAILY #30 tab No Action Insulin Glargine,Hum.rec.anlog [Lantus] 60 unit SQ BID #0 Baking Soda 1 tsp PO DAILY glucosamine-chondroitin 2 tab PO DAILY - Discharge Packet/Instructions *Diet: ADA 2000 kcal, low salt diet *Activity: As recommended by physical therapy *Pain Management/Treatment: As per primary care provider orders *Wound Care: Not applicable Additional Instructions: Patient will need to repeat CBC, BMP on 06/07/2018 and report to be faxed to patient's food service substitute, Dr. Anabell King office *Expected Signs/Symptoms: Expect continued improvement in symptoms. *Notify Physician if: Patient has chest pain, shortness of breath, palpitations , dizziness, syncope/near syncope, fever greater than 101F, chills, abdominal pain, diarrhea, flank pain, dysuria or any other concerning findings. *During Business Hours Contact: Primary care provider, Dr. Richmond *After Business Hours Contact: Call [facility] at [phone] and ask that the on-call physician be paged *Pending Lab/Results: No Pending Lab - Referrals/Follow Up *Referrals/Follow Up: Crow Richmond MD [Primary Care Provider] - Anabell King MD [Physician] - - Patient Handouts Patient Handouts: Urinary Tract Infection in Women (GEN) - Dismissal Complete Discharge Instructions are:: Complete Physician Narrative - Narrative Attestation Narrative: Date: 06/04/18 Time: [id number]
--- NOTE | 2018-06-04 14:06 | Extended Care Facility Orders ---
Admission Orders Admit to:: [facility] (at [facility]) Allergies/Adverse Reactions: Allergies fenofibrate [From Tricor] Allergy (Verified 05/29/18 12:18) metformin Allergy (Verified 05/29/18 12:18) feathers Adverse Reaction (Mild, Verified 05/29/18 12:18) Headache acyclovir Adverse Reaction (Verified 05/31/18 12:14) cat dander Adverse Reaction (Verified 05/29/18 12:18) wilda Adverse Reaction (Verified 05/29/18 12:18) pioglitazone Adverse Reaction (Verified 05/29/18 12:18) Admitting Diagnosis: UTI Admitting Physician: Vickey Jacobo MD Attending Physician: Vickey Jacobo MD Code Status: Full Code Anticiapted Length of Stay: 30 days or less Rehab Potential: fair Rehab Prognosis: fair Diet: 06/03/18 Breakfast Regular Diet [DIET] Diet Modifications: Other Diet Modifiers: LOWPOT May use Facility Protocol or Standing Orders: Yes Evaluations/Treatment: PT, OT, RT [facility] Certification: I certify that SNF services are required to be given on an Inpatient basis because of the patients need for [facility] care on a continuing basis for the condition(s) for which he/she received inpatient hospital services prior to his/her transfer to the SNF. SNF inpatient care is necessary for the following reasons Indication for [facility]: Other (bladder retraining and discontinue Salazar catheter once patient meets criteria.) - Additional Information In Event of Arrest: Start CPR,call 911,send patient to the ER Resident is Aware of Diagnosis: Yes Referrals: Crow Richmond MD [Primary Care Provider] - Anabell King MD [Physician] - Additional Orders: Patient will need to repeat CBC, BMP on 06/07/2018 and report to be faxed to patient's binding cementer french cord, Dr. Anabell King office
[2018-06-04] MEDS ORDERED: LEVOFLOXACIN 250 MG TABLET PO ONE (19:00)
== END 2018-06-04 15:43 | DRG 871 ==
LOC: ED 11:46 → SUATTDRO 14:27 → EDHOLD 14:27 → MED 15:05
PROVIDERS: ADMIT Internal Medicine; ATTEND Internal Medicine

== ENCOUNTER 2018-06-23 07:57 | Inpatient (IN) ==
--- NOTE | 2018-06-23 08:14 | Emergency Department Report ---
General Adult HPI - General Chief complaint: Nausea/Vomiting/Diarrhea Stated complaint: D/V, Low BP, Low BS Time Seen by Provider: 06/23/18 08:13 Source: patient, family Mode of arrival: wheelchair Limitations: no limitations - History of Present Illness HPI narrative: 73 F presents to the emergency department with a chief complaint of generalized weakness and generally not feeling well. Patient has been noticing a gradual increase in symptoms over the past several days at [facility]. Patient was discharged in May with a UTI to [facility]. He denies any current pain or discomfort other than chronic discomfort from sores in her mouth where she has bitten her cheek. She has a history of chronic kidney failure. She was at [facility] when her symptoms began. Symptoms have been persistent in nature since onset. No other complaints or associated symptoms. - Related Data Home Medications Medication Instructions Recorded Confirmed Acetaminophen [Acetaminophen ER] 650 mg PO Q8H PRN 06/23/18 06/23/18 Allopurinol [Zyloprim] 100 mg PO HS 06/23/18 06/23/18 Amiodarone HCl 200 mg PO DAILY 06/23/18 06/23/18 Atorvastatin Calcium 80 mg PO HS 06/23/18 06/23/18 Bismuth Subsalicylate [Kaopectate] 5 ml PO TID PRN 06/23/18 06/23/18 Carvedilol [Coreg] 3.125 mg PO BIDWM 06/23/18 06/23/18 Cholecalciferol (Vitamin D3) 10,000 unit PO DAILY 06/23/18 06/23/18 [Vitamin D3] Clopidogrel Bisulfate [Clopidogrel] 75 mg PO DAILY 06/23/18 06/23/18 Dabigatran [Pradaxa] 75 mg PO BID 06/23/18 06/23/18 Ferrous Sulfate [Iron] 325 mg PO DAILY 06/23/18 06/23/18 Fish Oil/Dha/Epa [Fish Oil 1,200 1,200 mg PO DAILY 06/23/18 06/23/18 mg Fish Oil] Insulin Glargine [Lantus] 40 unit SQ BID 06/23/18 06/23/18 Insulin Lispro [HumaLOG] 5 unit SQ Q2H PRN 06/23/18 06/23/18 Insulin Lispro [HumaLOG] 22 unit SQ TIDWM 06/23/18 06/23/18 Isosorbide Mononitrate ER [Imdur] 30 mg PO DAILY 06/23/18 06/23/18 Levothyroxine Sodium 88 mcg PO ACB 06/23/18 06/23/18 Loperamide HCl [Loperamide] 2 mg PO QID PRN 06/23/18 06/23/18 Loratadine [Claritin] 10 mg PO DAILY 06/23/18 06/23/18 Multivitamin [One Daily 1 tab PO DAILY 06/23/18 06/23/18 Multivitamin] Pantoprazole Sodium [Protonix] 40 mg PO DAILY 06/23/18 06/23/18 Peg 3350 238 G Bottle [Miralax] 17 gm PO Q2D 06/23/18 06/23/18 Torsemide [Demadex] 20 mg PO DAILY 06/23/18 06/23/18 Tramadol [Ultram] 50 mg PO BID 06/23/18 06/23/18 Allergies Allergy/AdvReac Type Severity Reaction Status Date / Time fenofibrate [From Tricor] Allergy Verified 06/23/18 09:20 metformin Allergy Verified 06/23/18 09:20 feathers AdvReac Mild Headache Verified 06/23/18 09:20 acyclovir AdvReac Verified 06/23/18 09:20 cat dander AdvReac Verified 06/23/18 09:20 wilda AdvReac Verified 06/23/18 09:20 pioglitazone AdvReac Verified 06/23/18 09:20 Review of Systems Constitutional: Reports: fever, weakness. Denies: chills Eyes: Denies: eye pain, vision change ENT: Denies: ear pain, throat pain Cardiovascular: Denies: chest pain, palpitations Respiratory: Denies: cough, dyspnea Gastrointestinal: Denies: abdominal pain, nausea, vomiting, diarrhea Genitourinary: Denies: urgency, dysuria Musculoskeletal: Denies: back pain, arthralgia Integumentary: Denies: erythema, rash Neurological: Denies: headache, numbness, paresthesias Psychiatric: Denies: anxiety, depression Endocrine: Denies: polydipsia, polyuria Hematological/Lymphatic: Denies: easy bruising, lymphadenopathy Allergic/Immunologic: Denies: facial swelling, urticaria PFSH Patient Stated Medical History Migraine Yes: NO RECENTLY Peripheral Neuropathy Yes: BOTTOM OF FEET Transient Ischemic Attacks ( Yes TIA) Cataracts Yes Glaucoma Yes Hearing Loss Yes Angina Yes: chest tightness, NOT AFTER STENT PLACEMENT Cardiac Arrhythmia Yes: at. fib. 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 left kidney Anemia Yes: NOT RECENTLY Clotting Problems Yes: takes pradaxa Osteoarthritis Yes Cellulitis Yes: BLE SEVERAL YEARS AGO Anesthesia Reactions Yes Post Menopausal Yes Medical History Updates: Coronary artery disease. Atrial fibrillation. Type II diabetes. Chronic kidney disease. Hypertension. Congestive heart failure. Peripheral neuropathy. History of TIA. Glaucoma. Sleep apnea. Chronic anticoagulation Surgical History: Colonoscopy. Coronary Stent 07/2017. Cataracts. Tonsillectomy. Heart catheterization-12/2010-LAD 30-40%, RCA occluded-stent placement. Heart catheterization-02/2012. Heart catheterization-07/2017- Mid circumflex artery had about 80-90% stenosis. Right coronary artery was dominant with diffuse disease of up to about 30-40% with widely patent endovascular stents. successful primary stent of left circumflex. Renal angiograph- 07/2017- Renal angiograph he shows widely patent right and left renal arteries Family History: Reviewed and Noncontributory. - Social History Smoking status: Never smoker second hand exposure: No Substance use type: does not use Alcohol intake frequency: does not drink Housing: house Household members: none Current occupational status: retired Does patient use chewing tobacco?: No Current residence: Apartment/Private Home Physical Exam - Limitations Limitations: no limitations - General General appearance: alert, in no apparent distress - Normal Exams: Head:: Normocephalic without trauma Eyes:: Pupils are PERRLA w/ EOMI, No scleral icterus, irritation, or foreign bodies noted ENMT:: No facial trauma, nasal exudates, pharyngeal erythema, or exudates are noted Dental: No fractured, loose, or missing teeth noted Neck:: Full range of motion, without adenopathy, JVD, bruits or thyromegaly Chest/Respirations:: Clear all allred, with good airflow, and symmetry bilaterally Cardiovascular:: Regular rate and rhythm, without murmur or gallop, Pulses 2+ all extremities, capillary refill, <2 seconds all extremities Abdomen:: Bowel sounds positive, soft, non-tender, non-distended, no hepatosplenomegaly, masses or bruits noted (Rectal exam - brown stool which is heme positive on Hemoccult otherwise unremarkable.) Lymphatic:: No lymphadenopathy, or lymphedema noted Musculoskeletal:: No tenderness, or deformity noted, good range of motion, all extremities Integumentary:: No rashes, hives, or bruising noted, hair and nails, without abnormality Neurological:: Patient is alert, and oriented, cranial nerves, motor/sensory/ cerebellar, exams w/o gross deficits, to observation Psychiatric:: Patient exhibits, appropriate attention, emotion and affect Course Vital Signs Temperature 97.4 F 06/23/18 07:58 Pulse Rate 72 06/23/18 07:58 Respiratory Rate 22 06/23/18 07:58 Blood Pressure 122/60 06/23/18 07:58 Pulse Oximetry 97 06/23/18 07:58 Temperature 97.4 F 06/23/18 07:58 Pulse Rate 72 06/23/18 07:58 Respiratory Rate 22 06/23/18 07:58 Blood Pressure 122/60 06/23/18 07:58 Pulse Oximetry 97 06/23/18 07:58 Medical Decision Making - [facility] Narrative Medical decision making narrative: Labs / imaging were discussed in detail with the patient and family and questions are answered. Patient is given 500 mL of normal saline intravenously times one. Patient is given 40 mg of Protonix intravenously times one. She continues to deny any current pain or discomfort. No abdominal pain or discomfort. Patient was unable to provide a stool sample in the emergency department. She was discussed with Dr. Marquez from the hospitalist service who agrees to admit the patient to his service for further evaluation and treatment due to the leukocytosis and GI bleeding with the patient anticoagulated on Pradaxa / Plavix. Patient was heme positive on rectal examination. After discussion with the hospitalist we will hold antibiotic therapy until C. difficile toxin/stool studies are performed and patient's clinical condition will be followed. Her lactate is 1.0. Patient and family are in agreement with the current plan of management. She is admitted to the hospital in improved condition. No further orders from accepting physician who is in agreement with the current plan of management. - Differential Diagnosis c.diff, leukocytosis, gastroenteritis, metabolic disorder, UTI - Lab Data Result diagrams: 06/23/18 08:38 06/23/18 08:38 Lab Results 06/23/18 06/23/18 06/23/18 Range/Units 08:38 08:38 08:38 WBC 28.2 H* (4.5-11.0) T/MM3 RBC 4.61 (4.00-5.20) M/MM3 Hgb 12.1 (12-16) GM/DL Hct 38.2 (36-46) % MCV 82.9 (80-100) UM3 MCH 26.2 (26-34) UUG MCHC 31.7 (31-37) GM/DL RDW Std Deviation 53.9 H (36.9-50.2) FL Plt Count 373 D (130-400) T/MM3 MPV 10.2 (9.4-12.4) UM3 Immature Gran % (Auto) Not performed Neut % (Auto) Not performed Lymph % (Auto) Not performed [place] % (Auto) Not performed Eos % (Auto) Not performed Baso % (Auto) Not performed Neut # (Auto) Not performed Lymph # (Auto) Not performed [place] # (Auto) Not performed Eos # (Auto) Not performed Baso # (Auto) Not performed Abs Immat Gran (auto) Not performed Neutrophils % (Manual) 52.0 (33-66) % Band Neutrophils % 5.0 (0-6) % Lymphocytes % (Manual) 21.0 L (23-45) % Reactive Lymphs % 1.0 H (0-0) % Monocytes % (Manual) 10.0 H (0-9.0) % Eosinophils % (Manual) 10.0 H (0-4) % Metamyelocytes % 1.0 H (0-0) % Neutrophils # (Manual) 14.7 H (1.8-7.7) T/MM3 Band Neutrophils # 1.4 T/MM3 Lymphocytes # (Manual) 5.9 H (1-4.8) T/MM3 Abs React Lymphs (Man) 0.3 H (0-0) T/MM3 Monocytes # (Manual) 2.8 H (0-0.8) T/MM3 Eosinophils # (Manual) 2.8 H (0-0.5) T/MM3 Metamyelocytes # 0.3 T/MM3 Polychromasia 1+ Poikilocytosis 1+ Anisocytosis 1+ Tear Drop Cells 1+ RBC Morph Comment Abnormal INR 1.24 H (0.92-1.18) APTT 41.1 H (24-36) SEC Turbidity < 20 (0-20) Sodium 136 (136-146) MEQ/L Potassium 5.0 (3.6-5) MEQ/L Chloride 106 (98-107) MEQ/L Carbon Dioxide 20 L (22-30) MEQ/L Anion Gap 10 (5-15) meq/L BUN 67.0 H* (7-17) MG/DL Creatinine 3.1 H (0.7-1.2) mg/dL Estimated Creat Clear 17 (>50) mL/min GFR Calculation 15 (>60) mL/min BUN/Creatinine Ratio 22 (6-26) RATIO Glucose 93 (65-110) MG/DL Calculated Osmolality 281 H (261-280) MOSM/KG Calcium 8.7 (8.4-10.2) MG/DL Total Bilirubin 0.30 (0.20-1.30) MG/DL Icterus Index < 2 (0-7) AST 17 (14-36) U/L ALT 16 (1-35) U/L Alkaline Phosphatase 112 (38-126) U/L Troponin I < 0.012 (0-0.12) ng/ml NT-Pro-B Natriuret Pep 254 H (0-175) pg/mL Total Protein 5.6 L (6.3-8.2) g/dL Albumin 2.9 L (3.5-5.0) g/dL Globulin 2.7 (2.4-3.6) G/DL Albumin/Globulin Ratio 1.1 (1.1-2.2) RATIO Plasma Lactate (0.6-2.2) MMOL/L TSH 12.40 H D (0.47-4.68) mIU/L Specimen Hemolysis 16 (0-25) Ur Collection Type Urine Color (YELLOW) Urine Clarity Urine pH (5.0-8.0) Ur Specific [place] (1.015-1.025) Urine Protein (NEGATIVE) Urine Glucose (UA) (NEGATIVE) Urine Ketones (NEGATIVE) Urine Occult Blood (NEGATIVE) Urine Nitrate (NEGATIVE) Urine Bilirubin (NEGATIVE) Urine Urobilinogen (NORMAL) EU/DL Ur Leukocyte Esterase (NEGATIVE) Urine RBC (0-3) /HPF Urine WBC (0-5) /HPF Urine WBC Clumps Ur Squamous Epith Cells Amorphous Sediment Urine Bacteria (NEGATIVE) Ur Culture Indicated? 06/23/18 06/23/18 Range/Units 09:02 09:04 WBC (4.5-11.0) T/MM3 RBC (4.00-5.20) M/MM3 Hgb (12-16) GM/DL Hct (36-46) % MCV (80-100) UM3 MCH (26-34) UUG MCHC (31-37) GM/DL RDW Std Deviation (36.9-50.2) FL Plt Count (130-400) T/MM3 MPV (9.4-12.4) UM3 Immature Gran % (Auto) Neut % (Auto) Lymph % (Auto) [place] % (Auto) Eos % (Auto) Baso % (Auto) Neut # (Auto) Lymph # (Auto) [place] # (Auto) Eos # (Auto) Baso # (Auto) Abs Immat Gran (auto) Neutrophils % (Manual) (33-66) % Band Neutrophils % (0-6) % Lymphocytes % (Manual) (23-45) % Reactive Lymphs % (0-0) % Monocytes % (Manual) (0-9.0) % Eosinophils % (Manual) (0-4) % Metamyelocytes % (0-0) % Neutrophils # (Manual) (1.8-7.7) T/MM3 Band Neutrophils # T/MM3 Lymphocytes # (Manual) (1-4.8) T/MM3 Abs React Lymphs (Man) (0-0) T/MM3 Monocytes # (Manual) (0-0.8) T/MM3 Eosinophils # (Manual) (0-0.5) T/MM3 Metamyelocytes # T/MM3 Polychromasia Poikilocytosis Anisocytosis Tear Drop Cells RBC Morph Comment INR (0.92-1.18) APTT (24-36) SEC Turbidity (0-20) Sodium (136-146) MEQ/L Potassium (3.6-5) MEQ/L Chloride (98-107) MEQ/L Carbon Dioxide (22-30) MEQ/L Anion Gap (5-15) meq/L BUN (7-17) MG/DL Creatinine (0.7-1.2) mg/dL Estimated Creat Clear (>50) mL/min GFR Calculation (>60) mL/min BUN/Creatinine Ratio (6-26) RATIO Glucose (65-110) MG/DL Calculated Osmolality (261-280) MOSM/KG Calcium (8.4-10.2) MG/DL Total Bilirubin (0.20-1.30) MG/DL Icterus Index (0-7) AST (14-36) U/L ALT (1-35) U/L Alkaline Phosphatase (38-126) U/L Troponin I (0-0.12) ng/ml NT-Pro-B Natriuret Pep (0-175) pg/mL Total Protein (6.3-8.2) g/dL Albumin (3.5-5.0) g/dL Globulin (2.4-3.6) G/DL Albumin/Globulin Ratio (1.1-2.2) RATIO Plasma Lactate 1.0 (0.6-2.2) MMOL/L TSH (0.47-4.68) mIU/L Specimen Hemolysis (0-25) Ur Collection Type Urine, cath straight Urine Color Yellow (YELLOW) Urine Clarity Clear Urine pH 5.5 (5.0-8.0) Ur Specific [place] 1.025 (1.015-1.025) Urine Protein 1+ A (NEGATIVE) Urine Glucose (UA) Negative (NEGATIVE) Urine Ketones Negative (NEGATIVE) Urine Occult Blood Negative (NEGATIVE) Urine Nitrate Negative (NEGATIVE) Urine Bilirubin Negative (NEGATIVE) Urine Urobilinogen 0.2 (NORMAL) EU/DL Ur Leukocyte Esterase Trace A (NEGATIVE) Urine RBC None seen (0-3) /HPF Urine WBC 1-3 (0-5) /HPF Urine WBC Clumps Few Ur Squamous Epith Cells 0-5 Amorphous Sediment Moderate Urine Bacteria 1+ H (NEGATIVE) Ur Culture Indicated? Cult not indicated - Radiology Data CXR - No acute processes. - EKG Data EKG #1 EKG results narrative: Afib. 77 bpm. No STEMI. Disposition Clinical Impression: Rectal bleeding Diarrhea Qualifiers: Diarrhea type: unspecified type Qualified Code(s): R19.7 - Diarrhea, unspecified Leukocytosis Qualifiers: Leukocytosis type: unspecified Qualified Code(s): D72.829 - Elevated white blood cell count, unspecified Disposition: OBS [facility] Condition: Improved Time of Disposition: 09:50 - Seen By: physician
--- NOTE | 2018-06-23 09:00 | XRay Report ---
Indication: gen. weakness PROCEDURE: XR chest 1V: Encounter: Initial Comparison: June 01, 2018 FINDINGS: The lungs are clear. There is no abnormal airspace opacity, pleural effusion or pneumothorax identified. The heart size, pulmonary vasculature and mediastinum are within normal limits. No significant skeletal abnormality is seen. IMPRESSION: No acute cardiopulmonary abnormality. .
[2018-06-23] MEDS: SALINE FLUSH 10ml SYRINGE IVF PRN (09:33)
[2018-06-23] MEDS ORDERED: PANTOPRAZOLE 40 MG INJECTION IVP ONE (09:58)
[2018-06-23 10:38] VITALS: BMI 40.9
[2018-06-23] MEDS: NS 1,000 ML IV SCH ×2 (10:50→19:00)
[2018-06-23] MEDS: VANCOMYCIN 250mg/5ml ORAL LIQ PO SCH ×4 (11:32→22:05)
[2018-06-23] MEDS: LACTOBACILLUS (15B cfu) CAPSULE PO SCH ×2 (11:35→18:00)
--- NOTE | 2018-06-23 15:45 | History & Physical Report ---
History of Present Illness Date: 06/23/18 Chief complaint: JOHAN, generalized weakness, fatigue, leukocytosis HPI: Meka Burgess is a very pleasant 73-year-old patient of Dr. Richmond who currently resides at [facility]. She is known to the hospitalist service from her recent admission on 05/29/18 for sepsis secondary to UTI. She was discharged to [facility] on 06/04/18 for continued rehabilitation with the plan to eventually return home where she lives independently. She reports that for the first few days following her discharge from [facility] she did well. For the past "several days", she has "generally not felt well". Family reports that she has become so weak generally that she required use of her wheelchair to use the bathroom today. She is unable to express any acute concerns or complaints. She routinely has her labs drawn on Thursday and and states that her hemoglobin has been variable, trending down and her BUN and creatine have been trending up. She also admits to low grade fevers around 99 with decreased appetite and decreased urinary output. She denies any chest pain, shortness of breath, abdominal pain or dysuria. On , she reports that she was started on Victoza and shortly after began having nausea with diarrhea. Her daughter, Maurene, whom is a nurse and is present on exam , contributes to the history, and reports that initially the Victoza was placed on hold with resolution of the diarrhea and symptoms. The Victoza was resumed 2 days ago and Maureen reports that Meka had 4 bouts of diarrhea last night, the last one with obvious bright red blood in the stools. Due to her progressive weakness, fatigue and diarrhea, she was brought to [facility] ED for further evaluation. Upon arrival, she was noted to be afebrile (T 97.4) with stable vital signs. Labs revealed leukocytosis (WBC 28.2) and elevated BUN and SCr at 67 and 3.1 respectively. TSH was also noted to be elevated at 12.40. She has a known history of hypothyroid and TSH on 04/23/18 was normal at 3.44. Review of her medications indicates that her levothyroxine was recently increased to 88 mcg on 06/05/18. UA revealed 1-3 WBC with few WBC clumps and 1+ bacteria. Culture from UA obtained at prison on 06/22/18 was positive for 50-100K gram negative bacilli per family. Due to her generalized weakness and fatigue with leukocytosis and acute kidney injury, Dr. Carrasco was consulted and she was accepted into observation status for further evaluation and treatment. During her prior hospitalization from 05/29/18-06/04/18, she was treated for sepsis secondary to an UTI that was found to be pansensitive E.coli. She was treated with Rocephin x 6 days, followed by 1 dose of Levaquin and discharged home on Augmentin 250mg BID x 2 weeks. Her treatment course of the Augmentin was complete on 06/18/18. Also during her recent hospitalization, she was noted to have an acute kidney injury with a max serum creatine at 3.8 which improved to 2.6 prior to discharge. She has a known history of chronic kidney disease, stage III. Creatine prior to 05/29/18 was around 1.7 with GFR around 30. She follows with Dr. King, nephrology in [place]. Review of Systems All systems PM: 10-point ROS was reviewed, no additional remarkable complaints except - Constitutional Constitutional: Present: fatigue, fever(s), weakness (generalized). Absent: chills - EENMT Eyes: Absent: diplopia, loss of vision, photophobia Ears: Absent: ear pain Balance: Absent: falling to one side Nose: Absent: nosebleeds Mouth/Throat: Present: pain (right cheek secondary to recently biting her cheek) , sores (cheek). Absent: changes in swallowing - Cardiovascular Cardiovascular: Present: dyspnea on exertion, edema. Absent: chest pain, palpitations, syncope Rhythm: Present: regular rhythm Vascular: Present: pedal edema. Absent: pallor of an extermity, unilateral swelling - Respiratory Respiratory: Present: dyspnea on exertion. Absent: cough, dyspnea, hemoptysis - Gastrointestinal Gastrointestinal: Present: change in bowel habits, diarrhea, hematochezia, nausea. Absent: abdominal pain, vomiting - Genitourinary Menstruation: post menopausal - Musculoskeletal Musculoskeletal: Present: muscle weakness. Absent: back pain, deformity, limited range of motion - Integumentary/Breasts Integumentary: Present: wounds (left anterior ann). Absent: rash - Neurological Neurological: Present: weakness. Absent: confusion, dizziness, focal weakness - Psychiatric Psychiatric: Absent: anxiety, depression - Endocrine Endocrine: Absent: cold intolerance, heat intolerance, palpitations - Hematologic/Lymphatic Hematologic/Lymphatic: Present: easy bruising - Allergic/Immunologic Allergic/Immunologic: Present: other (cat allergy) Past Medical History Medical History: Medical History (Last Updated 06/23/18 @ 18:41 by HORTENCIA Traore) Angina pectoris Atrial fibrillation Cataracts, bilateral Chronic edema Congestive heart disease Constipation GERD (gastroesophageal reflux disease) Generalized weakness Glaucoma Gout History of FL (myocardial infarction) History of TIA (transient ischemic attack) History of migraine headaches History of recurrent UTI (urinary tract infection) Hyperlipidemia Hypertension Hypothyroid Insulin dependent diabetes mellitus Iron deficiency anemia Morbid obesity with BMI of 40.0-44.9, adult Obstructive sleep apnea Osteoarthritis Peripheral neuropathy Renal cyst, left Surgical History: Colonoscopy. Coronary Stent - 07/2017. Tonsillectomy. Heart catheterization-12/2010-LAD 30-40%, RCA occluded-stent placement. Heart catheterization-02/2012. Heart catheterization-07/2017- stent of left circumflex. Renal angiograph- 07/2017- widely patent right and left renal arteries. Heart catheterization-12/2010-LAD 30-40%, RCA occluded-stent placement. Heart catheterization-02/2012. Heart catheterization-07/2017- Mid circumflex artery had about 80-90% stenosis. Right coronary artery was dominant with diffuse disease of up to about 30-40% with widely patent endovascular stents. successful primary stent of left circumflex. Renal angiograph- 07/2017- Renal angiograph he shows widely patent right and left renal arteries Family History: Mother - rectal cancer, ALL. Father - stomach polyps ("100s of them"), diverticulosis, CAD, FL "at a young age", in a house fire. Strong paternal family history of CAD and FL at young ages. Brother - CAD, hypertension, hyperlipidemia. Daughter (Maureen) - a nurse and reportedly healthy. Son (Milton) - ulcerative colitis, CAD, hyperlipidemia, hypertension. Family History: As Above - Social History Smoking status: Never smoker second hand exposure: Yes (none recently) Substance use type: does not use Alcohol intake frequency: does not drink Housing: prison ([facility]) Household members: none Current occupational status: retired Does patient use chewing tobacco?: No Current residence: Care Home ([facility] rehab) Social history: PCP - Dr. Richmond. Cardio - Dr. Bhatia. Nephro - Dr. King. GI - Dr. Zhao. Uro - Dr. Pichardo. Medications Home Medications Medication Instructions Recorded Confirmed Type Acetaminophen [Acetaminophen ER] 650 mg PO Q8H PRN 06/23/18 06/23/18 History Allopurinol [Zyloprim] 100 mg PO HS 06/23/18 06/23/18 History Amiodarone HCl 200 mg PO DAILY 06/23/18 06/23/18 History Atorvastatin Calcium 80 mg PO HS 06/23/18 06/23/18 History Bismuth Subsalicylate [Kaopectate] 5 ml PO TID PRN 06/23/18 06/23/18 History Carvedilol [Coreg] 3.125 mg PO BIDWM 06/23/18 06/23/18 History Cholecalciferol (Vitamin D3) 10,000 unit PO DAILY 06/23/18 06/23/18 History [Vitamin D3] Clopidogrel Bisulfate [Clopidogrel] 75 mg PO DAILY 06/23/18 06/23/18 History Dabigatran [Pradaxa] 75 mg PO BID 06/23/18 06/23/18 History Ferrous Sulfate [Iron] 325 mg PO DAILY 06/23/18 06/23/18 History Fish Oil/Dha/Epa [Fish Oil 1,200 1,200 mg PO DAILY 06/23/18 06/23/18 History mg Fish Oil] Insulin Glargine [Lantus] 40 unit SQ BID 06/23/18 06/23/18 History Insulin Lispro [HumaLOG] 5 unit SQ Q2H PRN 06/23/18 06/23/18 History Insulin Lispro [HumaLOG] 22 unit SQ TIDWM 06/23/18 06/23/18 History Isosorbide Mononitrate ER [Imdur] 30 mg PO DAILY 06/23/18 06/23/18 History Levothyroxine Sodium 88 mcg PO ACB 06/23/18 06/23/18 History Loperamide HCl [Loperamide] 2 mg PO QID PRN 06/23/18 06/23/18 History Loratadine [Claritin] 10 mg PO DAILY 06/23/18 06/23/18 History Multivitamin [One Daily 1 tab PO DAILY 06/23/18 06/23/18 History Multivitamin] Pantoprazole Sodium [Protonix] 40 mg PO DAILY 06/23/18 06/23/18 History Peg 3350 238 G Bottle [Miralax] 17 gm PO Q2D 06/23/18 06/23/18 History Torsemide [Demadex] 20 mg PO DAILY 06/23/18 06/23/18 History Tramadol [Ultram] 50 mg PO BID 06/23/18 06/23/18 History Allergies Allergy/AdvReac Type Severity Reaction Status Date / Time fenofibrate [From Tricor] Allergy Verified 06/23/18 09:20 metformin Allergy Verified 06/23/18 09:20 feathers AdvReac Mild Headache Verified 06/23/18 09:20 acyclovir AdvReac Verified 06/23/18 09:20 cat dander AdvReac Verified 06/23/18 09:20 wilda AdvReac Verified 06/23/18 09:20 pioglitazone AdvReac Verified 06/23/18 09:20 Exam Vital Signs: Temperature 96.4 F L 06/23/18 10:51 Pulse Rate 69 06/23/18 12:23 Respiratory Rate 22 06/23/18 10:51 Blood Pressure 141/61 H 06/23/18 12:23 Pulse Oximetry 96 06/23/18 12:23 Height/Weight/BMI: Height 5 ft 1 in Weight 216 lb 11.43 oz Body Mass Index 40.9 Comments: Patient is sitting up in recliner and appears to become more fatigued as the interview goes on. Daughter is present on exam. - Constitutional Present: no acute distress, well nourished, well developed, morbidly obese, cooperative - Routine HEENT Exam Head: Present: normocephalic, atraumatic Eye: Present: PERRL. Absent: conjunctival icterus ENT: Present: mucous membranes moist - Routine Neck Exam Present: supple, full ROM, trachea midline - Routine Chest/Breast/Axilla Exam Chest wall: Absent: tenderness - Routine Respiratory Exam Present: CTA bilaterally. Absent: respiratory distress, wheezes Comments: Breathing easily on room air. No cough. - Routine Cardiovascular Exam Present: RRR, S1, S2 - Routine Abdominal Exam Present: soft, normoactive bowel sounds, non tender - Routine Extremities Exam Present: edema (trace to 1+ bilaterally) Comments: Daughter reports concern about increased swelling despite decrease in weight at prison. - Routine Back/Spine/Pelvis Exam Back/Spine: Present: full ROM. Absent: CVA tenderness, vertebral tenderness - Routine Skin Exam Present: intact, dry, warm Comments: Afebrile. Small ulceration noted to anterior left ann without discharge or erythema. - Routine Neurological Exam Present: alert, oriented X3, CN II-XII intact, moving all extremities, hearing grossly intact, normal speech. Absent: facial asymmetry - Routine Psychiatric Exam Present: normal affect, cooperative Comments: Appears to fatigue on exam. Results - Labs CBC & Chem 7: 06/23/18 08:38 06/23/18 08:38 Microbiology Results: Microbiology 06/23/18 09:04 Peripheral/Iv Start Blood Culture - Preliminary Culture Initiated - Results Pending 06/23/18 09:06 Peripheral/Iv Start Blood Culture - Preliminary Culture Initiated - Results Pending Assessment and Plan Assessment and Plan: Assessment: Leukocytosis (WBC 28.2), POA Diarrhea Elevated TSH (TSH 12.40), POA Coronary artery disease with multiple stent placement on Plavix Atrial fibrillation Type II diabetes, insulin dependent Chronic kidney disease, stage III - follows with Dr. King Hypertension Congestive heart failure Peripheral neuropathy History of TIA Glaucoma Sleep apnea Chronic anticoagulation on Pradaxa Iron deficiency anemia Osteoarthritis GERD Morbid obesity with BMI 40.9 Plan - 06/23/18 Admit to observation status under the care of Dr. Carrasco. Chart and medications from [facility] reviewed. Monitor closely on telemetry given increased fatigue and history of a-fib. EKG in ED revealed rate controlled a-fib. Continue home amiodarone and coreg. Patient reports she was seen by Dr. King last week and her Norvasc which was initiated during her previous hospitalization was discontinued due to poor renal function. Will obtain renal ultrasound given JOHAN in AM. Stool sample obtained was negative. Based on history, diarrhea most likely secondary to initiation of Victoza. Will hold Victoza. Resume home medications. Clear liquid diet. Monitor blood sugars closely. Monitor closely of signs of hypoglycemia. Will hold home lantus 40 units BID and home lispro 22 units TIDWM given clear liquid diet only. Sliding scale insulin as indicated. Urine culture pending. UA culture from prison on 06/22/18 revealed gram negative bacilli at 50-100K. Patient recently treated for pansensitive E.coli and completed prolonged treatment on 06/18/18 with Rocephin x 6 days and levoquin x 1 dose while hospitalized and Augmentin x 2 weeks as an outpatient. Initial lactate was 1.0. Repeat lactate was elevated at 2.1. Troponin <0.012. Patient remains afebrile. Initial chest x-ray was unremarkable. Will recheck in AM as history regarding pulmonary symptoms is unclear. TSH elevated on admission. Stable in 04/2018. Dose recently increased to 88 mcg daily per patient. Recommend close follow up as outpatient. Recheck labs in AM to monitor blood counts, electrolytes and renal function. Will hold home pradaxa and plavix at this time due to reports of GI bleeding. Monitor hemoglobin. Oral Vancomycin was initiated for possible colitis. Upon discharge, patient's care will be returned to her PCP, Dr. Richmond. Patient is a FULL CODE. DVT Prophylaxis: SCD's, KAITY Hose GI Prophylaxis: Protonix Resuscitation Status: Full Code - Time spent with patient Time with patient PN: 70 minutes Coordination of Care: >50% of visit spent providing counseling/coordination of care - Physician Narrative Physician: Usman Carrasco MD Narrative: Date: 06/23/18 Time: 2018 Have independently interviewed and examined pt. Chart reviewed. Case discussed with ED physician and my PA. Care plan developed with my supervision; agree with above. Not been doing well past several days. Increasing loose stool. Much more weak- harder to get around, not making gains with therapy. Recent hospitalization for Ecoli sepsis. Had worsening renal status during that hospitalization which made gain, but renal status started to decline in outpatient setting. This morning, so week that she felt she needed urgent evaluation. Presents to ED-WBC elevated at 28.2 and creatinine increased to 3.1. Not tachy or hypotensive. Placed in OBS for further evaluation and treatment. Lungs: decreased, no distress CV: regular AB: soft nt BS decreased MSE: awake alert appropriate Plan: OBS. IVF for hydration and to help improve renal status. Initiate treatment for C diff-concern with recent antibiotic use. Stop Victoza secondary to diarrhea and itching patient developed with this medication. Monitor lab. Hospital Course Summary Disclaimer: The visit summary below is not to be considered part of the above Progress Note. Hospital Course: 06/23/18 Admit to observation status under the care of Dr. Carrasco. Chart and medications from [facility] reviewed. Monitor closely on telemetry given increased fatigue and history of a-fib. EKG in ED revealed rate controlled a-fib. Continue home amiodarone and coreg. Patient reports she was seen by Dr. King last week and her Norvasc which was initiated during her previous hospitalization was discontinued due to poor renal function. Will obtain renal ultrasound given JOHAN in AM. Stool sample obtained was negative. Based on history, diarrhea most likely secondary to initiation of Victoza. Will hold Victoza. Resume home medications. Clear liquid diet. Monitor blood sugars closely. Monitor closely of signs of hypoglycemia. Will hold home lantus 40 units BID and home lispro 22 units TIDWM given clear liquid diet only. Sliding scale insulin as indicated. Urine culture pending. UA culture from prison on 06/22/18 revealed gram negative bacilli at 50-100K. Patient recently treated for pansensitive E.coli and completed prolonged treatment on 06/18/18 with Rocephin x 6 days and levoquin x 1 dose while hospitalized and Augmentin x 2 weeks as an outpatient. Initial lactate was 1.0. Repeat lactate was elevated at 2.1. Troponin <0.012. Patient remains afebrile. Initial chest x-ray was unremarkable. Will recheck in AM as history regarding pulmonary symptoms is unclear. TSH elevated on admission. Stable in 04/2018. Dose recently increased to 88 mcg daily per patient. Recommend close follow up as outpatient. Recheck labs in AM to monitor blood counts, electrolytes and renal function. Will hold home pradaxa and plavix at this time due to reports of GI bleeding. Monitor hemoglobin. Oral Vancomycin was initiated for possible colitis. Upon discharge, patient's care will be returned to her PCP, Dr. Richmond. Patient is a FULL CODE.
[2018-06-23] MEDS: CARVEDILOL 3.125 MG TABLET PO SCH (18:00)
[2018-06-23] MEDS ORDERED: RENAL DOSING - PHARMACY CONSULT MC ONE (19:03)
[2018-06-23] MEDS ORDERED: ACETAMINOPHEN 325 MG TABLET PO PRN (19:03)
[2018-06-23] MEDS ORDERED: ONDANSETRON 4 MG/2 ML INJECTION IVP PRN (19:03)
[2018-06-23] MEDS ORDERED: GLUCOSE ORAL GEL 40% 37.5gm PO PRN (19:14)
[2018-06-23] MEDS ORDERED: DEXTROSE 50% SYRINGE 50ml (1 AMP) IVP PRN (19:14)
[2018-06-23] MEDS ORDERED: INSULIN GLARGINE 100unit/ml INJECTION SQ SCH (21:00)
[2018-06-23] MEDS: ALLOPURINOL 100 MG TABLET PO SCH (21:59)
[2018-06-23] MEDS: PANTOPRAZOLE 40 MG INJECTION IVP SCH (21:59)
[2018-06-24] MEDS: VANCOMYCIN 250mg/5ml ORAL LIQ PO SCH ×4 (02:08→20:35)
[2018-06-24] MEDS: NS 1,000 ML IV SCH ×4 (03:55→23:20)
[2018-06-24] MEDS: LEVOTHYROXINE 88 MCG TABLET PO SCH (06:43)
--- NOTE | 2018-06-24 07:35 | Pharmacy Consult- Renal Dosing ---
[facility]-Renal Dosing - Laboratory Information 06/23/18 06/24/18 08:38 04:25 BUN 67.0 H* 58.0 H* Creatinine 3.1 H 2.9 H D Renal fx is significantly compromised. Reveiwed all medications for dosing adjustment needs. No medication needs adjustment at this time. Will continue to follow and adjust any new meds that need adjustment. Thank you.
[2018-06-24] MEDS ORDERED: INSULIN LISPRO 22 UNIT SQ SCH (08:00)
[2018-06-24] MEDS: PANTOPRAZOLE 40 MG INJECTION IVP SCH ×2 (08:25→20:34)
[2018-06-24] MEDS: LORATADINE 10 MG TABLET PO SCH (08:25)
[2018-06-24] MEDS: FERROUS SULFATE 324 MG TABLET PO SCH (08:25)
[2018-06-24] MEDS: CARVEDILOL 3.125 MG TABLET PO SCH ×2 (08:26→17:42)
[2018-06-24] MEDS: LACTOBACILLUS (15B cfu) CAPSULE PO SCH ×3 (08:26→17:42)
[2018-06-24] MEDS: AMIODARONE 200 MG TABLET PO SCH (08:26)
--- NOTE | 2018-06-24 08:48 | XRay Report ---
INDICATION: leukocytosis, weakness PROCEDURE: CHEST 2-VIEWS UPRIGHT (PA & LAT) Encounter: Initial COMPARISON: June 23, 2018 FINDINGS: The lungs are clear without evidence of focal abnormal airspace opacity. There is no pleural effusion or pneumothorax. The heart size, mediastinal contours and pulmonary vascularity are within normal limits. There is no significant skeletal abnormality. IMPRESSION: No acute cardiopulmonary disease. .
--- NOTE | 2018-06-24 08:56 | Ultrasound Report ---
Indication: JOHAN PROCEDURE: US renal BI: Encounter: Initial Comparison: None Technique: Grayscale and color Doppler sonographic imaging of both kidneys was performed. FINDINGS: Both kidneys are present with normal cortical thickness and echogenicity. No evidence for collecting system dilatation, contour deforming mass, nephrolithiasis, or abnormal perinephric fluid collection. The right kidney measures 12.1 cm in length, and the left kidney measures 10.5 cm in length. 1.2 cm right renal cyst with a single small septation. 2.8 cm benign-appearing left renal cyst. IMPRESSION: No hydronephrosis. .
--- NOTE | 2018-06-24 11:42 | Progress Note ---
- Date 06/24/18 Subjective: Meka is seen this morning while sitting up in the chair with daughter at her side. She states that overall she is feeling better however continues to have persistent large quantity of loose stools. Reports nausea has improved. Reports feels short of breath with exertion. BLE edema 1+. Objective Vital signs: Temperature 97.1 F 06/24/18 08:16 Pulse Rate 68 06/24/18 08:16 Respiratory Rate 20 06/24/18 08:16 Blood Pressure 144/66 H 06/24/18 08:16 Pulse Oximetry 97 06/24/18 08:16 Height/Weight/BMI: Height 1.55 m Weight 99.8 kg Body Mass Index 40.9 - Constitutional Present: no acute distress, well nourished, well developed - Routine HEENT Exam Eye: Present: EOMI ENT: Present: mucous membranes moist, dentition normal - Routine Respiratory Exam Present: CTA bilaterally. Absent: wheezes - Routine Cardiovascular Exam Present: RRR, S1, S2. Absent: murmur - Routine Abdominal Exam Present: soft, normoactive bowel sounds, non distended, non tender. Absent: tenderness - Routine Extremities Exam Present: edema (1+ BLE ), normal capillary refill - Routine Back/Spine/Pelvis Exam Back/Spine: Present: full ROM - Routine Skin Exam Present: intact, dry, warm - Routine Neurological Exam Present: alert, oriented X3, CN II-XII intact, moving all extremities - Routine Lymphatic Exam Lymphatic: Absent: adenopathy - Routine Psychiatric Exam Present: normal affect, normal thought process, cooperative Results - Labs CBC & Chem 7: 06/24/18 04:25 06/24/18 04:25 Microbiology Results: Microbiology 06/23/18 09:06 Peripheral/Iv Start Blood Culture - Preliminary No Growth After 1 Day 06/23/18 09:04 Peripheral/Iv Start Blood Culture - Preliminary No Growth After 1 Day 06/24/18 03:42 Not Provided Urine Culture - Preliminary Culture Initiated - Results Pending Assessment and Plan Assessment and Plan: Assessment: Mild mesenteric inflammation - likely gastroenteritis Leukocytosis (WBC 28.2), POA Diarrhea Elevated TSH (TSH 12.40), POA Coronary artery disease with multiple stent placement on Plavix Atrial fibrillation Type II diabetes, insulin dependent Chronic kidney disease, stage III - follows with Dr. King Hypertension Congestive heart failure Peripheral neuropathy History of TIA Glaucoma Sleep apnea Chronic anticoagulation on Pradaxa Iron deficiency anemia Osteoarthritis GERD Morbid obesity with BMI 40.9 Plan Renal ultrasound negative for acute process- known chronic renal cysts. 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 ? colitis Monitor blood sugars- Sliding scale insulin Chronic anticoagulation remains on hold. Hgb decreased from 12.1--> 9.9. Continue to monitor [place]ilo CT showing Mild mesenteric inflammation could represent a gastroenteritis or mesenteric panniculitis. With continued WBC, will add metronidazole for gastroenteritis. Decrease IVF to 80cc/hr. Will consult PT/OT in am to help improve strength and functional abilities. Change to inpatient admission secondary to continued leukocytosis with gastroenteritis. DVT Prophylaxis: SCD's, KAITY Hose GI Prophylaxis: Protonix Resuscitation Status: Full Code - Time spent with patient Time with patient PN: 25 minutes - Physician Narrative Physician: Usman Carrasco MD Narrative: Date: 06/24/18 Time: 1755 Have independently interviewed and examined pt. Chart reviewed. Case discussed with CM, pt's daughter, and my WAREHOUSE PACKER. Care plan developed with my supervision; agree with above. Feels better-no ab pain or nausea. Tolerating clear liquids without problems, would like more 'regular' type food. Passing stools-soft but denies they are watery. Not feeling more SOA or congested. No pain with breathing or chest pain. Lungs: decreased, no crackles or distress CV: regular AB: soft nt/nd BS decreased MSE: awake alert appropriate Plan: CT results showing mild mesenteric inflammation. With continued leukocytosis and this finding, will change to inpatient as anticipate greater than 2 midnights of care needed. Start metronidazole for abdominal coverage. Add Culturelle. Decrease IVF to 80cc/hr. PT/OT. Monitor lab. Hospital Course Summary Disclaimer: The visit summary below is not to be considered part of the above Progress Note. Hospital Course: 06/23/18 Admit to observation status under the care of Dr. Carrasco. Chart and medications from [facility] reviewed. Monitor closely on telemetry given increased fatigue and history of a-fib. EKG in ED revealed rate controlled a-fib. Continue home amiodarone and coreg. Patient reports she was seen by Dr. King last week and her Norvasc which was initiated during her previous hospitalization was discontinued due to poor renal function. Will obtain renal ultrasound given JOHAN in AM. Stool sample obtained was negative. Based on history, diarrhea most likely secondary to initiation of Victoza. Will hold Victoza. Resume home medications. Clear liquid diet. Monitor blood sugars closely. Monitor closely of signs of hypoglycemia. Will hold home lantus 40 units BID and home lispro 22 units TIDWM given clear liquid diet only. Sliding scale insulin as indicated. Urine culture pending. UA culture from senior care on 06/22/18 revealed gram negative bacilli at 50-100K. Patient recently treated for pansensitive E.coli and completed prolonged treatment on 06/18/18 with Rocephin x 6 days and levoquin x 1 dose while hospitalized and Augmentin x 2 weeks as an outpatient. Initial lactate was 1.0. Repeat lactate was elevated at 2.1. Troponin <0.012. Patient remains afebrile. Initial chest x-ray was unremarkable. Will recheck in AM as history regarding pulmonary symptoms is unclear. TSH elevated on admission. Stable in 04/2018. Dose recently increased to 88 mcg daily per patient. Recommend close follow up as outpatient. Recheck labs in AM to monitor blood counts, electrolytes and renal function. Will hold home pradaxa and plavix at this time due to reports of GI bleeding. Monitor hemoglobin. Oral Vancomycin was initiated for possible colitis. Upon discharge, patient's care will be returned to her PCP, Dr. Richmond. Patient is a FULL CODE. 06/24/18 Renal ultrasound negative for acute process- known chronic renal cysts. 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 ? colitis Monitor blood sugars- Sliding scale insulin Chronic anticoagulation remains on hold. Hgb decreased from 12.1--> 9.9. Continue to monitor CT showing Mild mesenteric inflammation could represent a gastroenteritis or mesenteric panniculitis. With continued WBC, will add metronidazole for gastroenteritis. Decrease IVF to 80cc/hr. Will consult PT/OT in am to help improve strength and functional abilities. Change to inpatient admission secondary to continued leukocytosis with gastroenteritis.
[2018-06-24] MEDS: INSULIN ASPART 100unit/ml INJECTION SQ PRN (12:30)
--- NOTE | 2018-06-24 16:46 | CT Scan Report ---
Indication: Leukocytosis PROCEDURE: CT abdomen pelvis wo con: Encounter: Initial Comparison: None Technique: Axial CT images were performed through the abdomen and pelvis without intravenous contrast. Coronal and sagittal two-dimensional reformats. Automated Exposure Control and Iterative Reconstruction dose reducing techniques were utilized. Findings: The lung bases are clear. The unenhanced contours of the liver are unremarkable. The gallbladder is surgically absent. The spleen appears normal. The pancreas and adrenal glands are normal. Bilateral renal cysts. No renal or ureteral stone disease. The bladder is normal. Uterus is normal for age. No bowel obstruction. There is mild hazy stranding seen in the right lower quadrant mesentery with small mesenteric nodes present. The appendix appears normal. Bone windows show no acute findings. Impression: Mild mesenteric inflammation could represent a gastroenteritis or mesenteric panniculitis. No other acute disease process seen. .
[2018-06-24] MEDS: ALLOPURINOL 100 MG TABLET PO SCH (20:35)
[2018-06-24] MEDS: MetroNIDAZOLE PB 500 MG/100 ML BAG IV SCH (20:36)
[2018-06-25] MEDS: MetroNIDAZOLE PB 500 MG/100 ML BAG IV SCH ×3 (04:36→19:38)
[2018-06-25] MEDS: VANCOMYCIN 250mg/5ml ORAL LIQ PO SCH ×3 (04:36→15:03)
[2018-06-25] MEDS: LEVOTHYROXINE 88 MCG TABLET PO SCH (05:53)
[2018-06-25] MEDS: LORATADINE 10 MG TABLET PO SCH (05:53)
[2018-06-25] MEDS: AMIODARONE 200 MG TABLET PO SCH (08:42)
[2018-06-25] MEDS: LACTOBACILLUS (15B cfu) CAPSULE PO SCH ×3 (08:42→18:22)
[2018-06-25] MEDS: FERROUS SULFATE 324 MG TABLET PO SCH (08:42)
[2018-06-25] MEDS: CARVEDILOL 3.125 MG TABLET PO SCH ×2 (08:43→18:22)
[2018-06-25] MEDS: PANTOPRAZOLE 40 MG INJECTION IVP SCH ×2 (08:43→21:42)
[2018-06-25] MEDS: INSULIN ASPART 100unit/ml INJECTION SQ PRN ×3 (11:00→20:40)
--- NOTE | 2018-06-25 11:02 | Progress Note ---
- Date 06/25/18 Subjective: Meka is seen this morning while in bed. She is getting tired of being in bed. She tolerated breakfast today without nausea, vomiting or diarrhea. She continues to have Bilateral lower ext edema- 2-3+ with one area on right lateral that has drainage/weeping. She is noted to be up 4 kg since admission. BP noted to be elevated this morning at 161/67. Objective Vital signs: Temperature 98.2 F 06/25/18 07:13 Pulse Rate 70 06/25/18 07:13 Respiratory Rate 18 06/25/18 07:13 Blood Pressure 161/67 H 06/25/18 07:13 Pulse Oximetry 96 06/25/18 08:00 Height/Weight/BMI: Height 1.55 m Weight 101.3 kg Body Mass Index 40.9 - Constitutional Present: no acute distress, well nourished, well developed - Routine HEENT Exam Eye: Present: EOMI ENT: Present: mucous membranes moist, dentition normal - Routine Respiratory Exam Present: CTA bilaterally. Absent: wheezes - Routine Cardiovascular Exam Present: RRR, S1, S2. Absent: murmur - Routine Abdominal Exam Present: soft, normoactive bowel sounds, non distended. Absent: tenderness - Routine Extremities Exam Present: edema (2-3+ bilateral lower ext edema), normal capillary refill - Routine Skin Exam Present: intact, dry, warm Comments: small area or erythema to right lateral leg with weeping. - Routine Neurological Exam Present: alert, oriented X3, CN II-XII intact - Routine Lymphatic Exam Lymphatic: Absent: adenopathy - Routine Psychiatric Exam Present: normal affect Results - Labs CBC & Chem 7: 06/25/18 04:33 06/25/18 04:33 Microbiology Results: Microbiology 06/24/18 03:42 Not Provided Urine Culture - Preliminary Gram Negative Anand 06/23/18 09:06 Peripheral/Iv Start Blood Culture - Preliminary No Growth After 2 Days 06/23/18 09:04 Peripheral/Iv Start Blood Culture - Preliminary No Growth After 2 Days Assessment and Plan Assessment and Plan: Assessment: Mild mesenteric inflammation - likely gastroenteritis Leukocytosis (WBC 28.2), POA Diarrhea Elevated TSH (TSH 12.40), POA Coronary artery disease with multiple stent placement on Plavix Atrial fibrillation Type II diabetes, insulin dependent Chronic kidney disease, stage III - follows with Dr. King Hypertension Congestive heart failure Peripheral neuropathy History of TIA Glaucoma Sleep apnea Chronic anticoagulation on Pradaxa Iron deficiency anemia Osteoarthritis GERD Morbid obesity with BMI 40.9 Plan Compression antonio wraps placed to bilateral lower ext to help with edema Encouraged patient to leave them on during the day Will resume home Torsemide daily for diuresis Leukocytosis improving. Added Flagyl to tx gastroenteritis Renal function continues to improve at 2.4 today Tolerating PO intake. Will discontinue IV fluids Monitor BP as it was elevated today. +diuretics will help Resume home Plavix and Pradaxa Continue to follow blood sugars and SSI Encourage work with PT/OT DVT Prophylaxis: SCD's, KAITY Hose GI Prophylaxis: Protonix Resuscitation Status: Full Code - Time spent with patient Time with patient PN: 25 minutes - Physician Narrative Physician: Usman Carrasco MD Narrative: Date: 06/25/18 Time: 1705 Have independently interviewed/examined pt. Chart reviewed. Case discussed with CM & my BUS STEWARD. Care plan developed with my supervision; agree with above. Doing okay other than urgency for stool-stool soft, but not watery. Tolerating oral intake without nausea or ab pain-trying to have sensible food choices. Breathing well-no SOA or congestion. No chest pain. Working on ambulation. Lungs: clear bilaterally-no crackles or wheezes CV: regular AB: soft nt/nd MSE: awake alert appropriate Plan: Continue with Metronidazole, can stop oral vancomycin. Decrease IVF. Encourage ambulation. Monitor labs. Biochemically improving. Hospital Course Summary Disclaimer: The visit summary below is not to be considered part of the above Progress Note. Hospital Course: 06/23/18 Admit to observation status under the care of Dr. Carrasco. Chart and medications from [facility] reviewed. Monitor closely on telemetry given increased fatigue and history of a-fib. EKG in ED revealed rate controlled a-fib. Continue home amiodarone and coreg. Patient reports she was seen by Dr. King last week and her Norvasc which was initiated during her previous hospitalization was discontinued due to poor renal function. Will obtain renal ultrasound given JOHAN in AM. Stool sample obtained was negative. Based on history, diarrhea most likely secondary to initiation of Victoza. Will hold Victoza. Resume home medications. Clear liquid diet. Monitor blood sugars closely. Monitor closely of signs of hypoglycemia. Will hold home lantus 40 units BID and home lispro 22 units TIDWM given clear liquid diet only. Sliding scale insulin as indicated. Urine culture pending. UA culture from custodial on 06/22/18 revealed gram negative bacilli at 50-100K. Patient recently treated for pansensitive E.coli and completed prolonged treatment on 06/18/18 with Rocephin x 6 days and levoquin x 1 dose while hospitalized and Augmentin x 2 weeks as an outpatient. Initial lactate was 1.0. Repeat lactate was elevated at 2.1. Troponin <0.012. Patient remains afebrile. Initial chest x-ray was unremarkable. Will recheck in AM as history regarding pulmonary symptoms is unclear. TSH elevated on admission. Stable in 04/2018. Dose recently increased to 88 mcg daily per patient. Recommend close follow up as outpatient. Recheck labs in AM to monitor blood counts, electrolytes and renal function. Will hold home pradaxa and plavix at this time due to reports of GI bleeding. Monitor hemoglobin. Oral Vancomycin was initiated for possible colitis. Upon discharge, patient's care will be returned to her PCP, Dr. Richmond. Patient is a FULL CODE. 06/24/18 Renal ultrasound negative for acute process- known chronic renal cysts. 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 ? colitis Monitor blood sugars- Sliding scale insulin Chronic anticoagulation remains on hold. Hgb decreased from 12.1--> 9.9. Continue to monitor CT showing Mild mesenteric inflammation could represent a gastroenteritis or mesenteric panniculitis. With continued WBC, will add metronidazole for gastroenteritis. Decrease IVF to 80cc/hr. Will consult PT/OT in am to help improve strength and functional abilities. Change to inpatient admission secondary to continued leukocytosis with gastroenteritis. 06/25/18 Compression antonio wraps placed to bilateral lower ext to help with edema Encouraged patient to leave them on during the day Will resume home Torsemide daily for diuresis Leukocytosis improving. Added Flagyl to tx gastroenteritis Renal function continues to improve at 2.4 today Tolerating PO intake. Will discontinue IV fluids Monitor BP as it was elevated today. +diuretics will help Resume home Plavix and Pradaxa Continue to follow blood sugars and SSI Encourage work with PT/OT
[2018-06-25] MEDS: TORSEMIDE 20 MG TABLET PO SCH (11:59)
[2018-06-25] MEDS: CLOPIDOGREL 75 MG TABLET PO SCH (11:59)
[2018-06-25] MEDS: NS 1,000 ML IV SCH (15:03)
[2018-06-25] MEDS: ALLOPURINOL 100 MG TABLET PO SCH (20:37)
[2018-06-25] MEDS: DABIGATRAN 75 MG PO SCH (20:37)
[2018-06-25] MEDS: SALINE FLUSH 10ml SYRINGE IVF PRN (20:38)
[2018-06-26] MEDS: MetroNIDAZOLE PB 500 MG/100 ML BAG IV SCH ×3 (03:40→20:35)
[2018-06-26] MEDS: INSULIN ASPART 100unit/ml INJECTION SQ PRN ×4 (06:14→20:35)
[2018-06-26] MEDS: LEVOTHYROXINE 88 MCG TABLET PO SCH (06:14)
[2018-06-26] MEDS: LORATADINE 10 MG TABLET PO SCH (06:14)
[2018-06-26] MEDS: NS 1,000 ML IV SCH ×2 (06:14→18:30)
[2018-06-26] MEDS: AMIODARONE 200 MG TABLET PO SCH (09:26)
[2018-06-26] MEDS: CLOPIDOGREL 75 MG TABLET PO SCH (09:26)
[2018-06-26] MEDS: DABIGATRAN 75 MG PO SCH ×2 (09:26→20:35)
[2018-06-26] MEDS: FERROUS SULFATE 324 MG TABLET PO SCH (09:26)
[2018-06-26] MEDS: LACTOBACILLUS (15B cfu) CAPSULE PO SCH ×3 (09:26→17:23)
[2018-06-26] MEDS: TORSEMIDE 20 MG TABLET PO SCH (09:26)
[2018-06-26] MEDS: CARVEDILOL 3.125 MG TABLET PO SCH ×2 (09:27→18:28)
[2018-06-26] MEDS: PANTOPRAZOLE 40 MG INJECTION IVP SCH (09:27)
[2018-06-26] MEDS ORDERED: ISOSORBIDE MONONITRATE ER 30 MG TABLET PO SCH (16:45)
[2018-06-26] MEDS ORDERED: NS 1,000 ML IV SCH (16:45)
[2018-06-26] MEDS: INSULIN ASPART 100unit/ml INJECTION SQ SCH (17:24)
--- NOTE | 2018-06-26 17:58 | Progress Note ---
- Date 06/26/18 Subjective: F/U: Gastroenteritis, Leukocytosis Doing better overall. Appetite much improved, but worries she overate yesterday evening as had increased abdominal cramping and bloating. No nausea or dyspepsia. Reports stools soft with very slight form-not passing watery stools. No anal itch. Reports ears starting to feel more full and congested. Chronic sinus drainage-worse on right. Breathing well-not congested or SOA. No f/c. Strength increasing-able to walk better (still needs assistance). Urinating well. Objective Vital signs: Temperature 98.2 F 06/26/18 15:05 Pulse Rate 64 06/26/18 15:05 Respiratory Rate 20 06/26/18 15:05 Blood Pressure 153/70 H 06/26/18 15:05 Pulse Oximetry 98 06/26/18 16:02 Height/Weight/BMI: Height 1.55 m Weight 99 kg Body Mass Index 40.9 - Constitutional Present: well nourished, well developed, average body habitus, morbidly obese, cooperative - Routine HEENT Exam Head: Present: normocephalic, atraumatic Eye: Present: EOMI, PERRL, normal accommodation ENT: Present: mucous membranes moist, external ear normal, TM's clear bilaterally - Routine Respiratory Exam Present: CTA bilaterally. Absent: respiratory distress - Routine Cardiovascular Exam Present: RRR, no murmur - Routine Abdominal Exam Present: soft, non distended, non tender. Absent: normoactive bowel sounds ( decreased) - Routine Extremities Exam Present: edema (+3 - Legs wrapped in ANABELLE). Absent: cyanosis, clubbing - Routine Musculoskeletal Exam Musculoskeletal: Present: no clubbing or cyanosis - Routine Skin Exam Present: dry, warm - Routine Neurological Exam Present: alert, oriented X3, CN II-XII intact, moving all extremities, vision grossly intact, hearing grossly intact, normal speech. Absent: motor deficit, altered mental status - Routine Psychiatric Exam Present: normal affect, normal thought process, cooperative, good insight, good judgment Results - Labs CBC & Chem 7: 06/26/18 04:51 06/26/18 04:51 Microbiology Results: Microbiology 06/23/18 09:04 Peripheral/Iv Start Blood Culture - Preliminary No Growth After 3 Days 06/23/18 09:06 Peripheral/Iv Start Blood Culture - Preliminary No Growth After 3 Days 06/24/18 03:42 Not Provided Urine Culture - Final Enterobacter aerogenes Assessment and Plan (1) Leukocytosis Current visit: Yes Status: Acute (2) Acute kidney injury Current visit: Yes Status: Acute Assessment and Plan: Assessment: Mild mesenteric inflammation - likely gastroenteritis Leukocytosis (WBC 28.2), POA Diarrhea Elevated TSH (TSH 12.40), POA Coronary artery disease with multiple stent placement on Plavix Atrial fibrillation Type II diabetes, insulin dependent Chronic kidney disease, stage III - follows with Dr. King Hypertension Congestive heart failure Peripheral neuropathy History of TIA Glaucoma Sleep apnea Chronic anticoagulation on Pradaxa Iron deficiency anemia Osteoarthritis GERD Morbid obesity with BMI 40.9 Plan Continue with metronidazole for gastroenteritis with leukocytosis. Creatinine decrease to 2.3 - will decrease IVF to 50cc/hr as kidneys improving and oral drive increasing. Will start mealtime insulin at 12 units (home dose 23). Monitor sugars. Patient worries about sinusitis due to chronic drainage and now feeling more full to ears. TM look normal bilaterally. Will check CT sinuses to exclude infection. Sinuses were normal on CT done in ED at prior visit (05/29/18). Encourage activities and ambulation. Recheck CBC in am due to leukocytosis. Repeat BMP in am due to CKD. Case discussed with patient's daughter. Time spent with patient care 25 minutes. DVT Prophylaxis: SCD's, KAITY Hose GI Prophylaxis: Protonix Resuscitation Status: Full Code - Time spent with patient Time with patient PN: 25 minutes - Physician Narrative Physician: Usman Carrasco MD Narrative: Date: 06/26/18 Time: 1755 Hospital Course Summary Disclaimer: The visit summary below is not to be considered part of the above Progress Note. Hospital Course: 06/23/18 Admit to observation status under the care of Dr. Carrasco. Chart and medications from [facility] reviewed. Monitor closely on telemetry given increased fatigue and history of a-fib. EKG in ED revealed rate controlled a-fib. Continue home amiodarone and Coreg. Patient reports she was seen by Dr. King last week and her Norvasc which was initiated during her previous hospitalization was discontinued due to poor renal function. Will obtain renal ultrasound given JOHAN in AM. Stool sample obtained was negative. Based on history, diarrhea most likely secondary to initiation of Victoza. Will hold Victoza. Resume home medications. Clear liquid diet. Monitor blood sugars closely. Monitor closely of signs of hypoglycemia. Will hold home lantus 40 units BID and home lispro 22 units TIDWM given clear liquid diet only. Sliding scale insulin as indicated. Urine culture pending. UA culture from correction on 06/22/18 revealed gram negative bacilli at 50-100K. Patient recently treated for pansensitive E.coli and completed prolonged treatment on 06/18/18 with Rocephin x 6 days and levoquin x 1 dose while hospitalized and Augmentin x 2 weeks as an outpatient. Initial lactate was 1.0. Repeat lactate was elevated at 2.1. Troponin <0.012. Patient remains afebrile. Initial chest x-ray was unremarkable. Will recheck in AM as history regarding pulmonary symptoms is unclear. TSH elevated on admission. Stable in 04/2018. Dose recently increased to 88 mcg daily per patient. Recommend close follow up as outpatient. Recheck labs in AM to monitor blood counts, electrolytes and renal function. Will hold home pradaxa and plavix at this time due to reports of GI bleeding. Monitor hemoglobin. Oral Vancomycin was initiated for possible colitis. Upon discharge, patient's care will be returned to her PCP, Dr. Richmond. Patient is a FULL CODE. 06/24/18 Renal ultrasound negative for acute process- known chronic renal cysts. 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 ? colitis Monitor blood sugars- Sliding scale insulin Chronic anticoagulation remains on hold. Hgb decreased from 12.1--> 9.9. Continue to monitor CT showing Mild mesenteric inflammation could represent a gastroenteritis or mesenteric panniculitis. With continued WBC, will add metronidazole for gastroenteritis. Decrease IVF to 80cc/hr. Will consult PT/OT in am to help improve strength and functional abilities. Change to inpatient admission secondary to continued leukocytosis with gastroenteritis. 06/25/18 Compression anabelle wraps placed to bilateral lower ext to help with edema. Encouraged patient to leave them on during the day. Will resume home Torsemide daily for diuresis. Leukocytosis improving. Renal function continues to improve at 2.4 today Tolerating PO intake. Monitor BP as it was elevated today. Suspect diuretics will help. Resume home Plavix and Pradaxa. Continue to follow blood sugars and SSI. Encourage work with PT/OT. 06/26/18 Continue with metronidazole for gastroenteritis with leukocytosis. Creatinine decrease to 2.3 - will decrease IVF to 50cc/hr as kidneys improving and oral drive increasing. Will start mealtime insulin at 12 units (home dose 23). Monitor sugars. Patient worries about sinusitis due to chronic drainage and now feeling more full to ears. TM look normal bilaterally. Will check CT sinuses to exclude infection. Sinuses were normal on CT done in ED at prior visit (05/29/18). Encourage activities and ambulation.
[2018-06-26] MEDS: ALLOPURINOL 100 MG TABLET PO SCH (20:35)
[2018-06-27] MEDS: MetroNIDAZOLE PB 500 MG/100 ML BAG IV SCH ×3 (03:38→20:05)
[2018-06-27] MEDS: LEVOTHYROXINE 88 MCG TABLET PO SCH (06:05)
[2018-06-27] MEDS: LORATADINE 10 MG TABLET PO SCH (06:05)
[2018-06-27] MEDS: ISOSORBIDE MONONITRATE ER 30 MG TABLET PO SCH (08:00)
[2018-06-27] MEDS: INSULIN ASPART 100unit/ml INJECTION SQ SCH ×4 (08:56→18:07)
[2018-06-27] MEDS: TORSEMIDE 20 MG TABLET PO SCH (09:09)
[2018-06-27] MEDS: DABIGATRAN 75 MG PO SCH ×2 (09:09→21:36)
[2018-06-27] MEDS: PANTOPRAZOLE 40 MG TABLET PO SCH (09:10)
[2018-06-27] MEDS: AMIODARONE 200 MG TABLET PO SCH (09:10)
[2018-06-27] MEDS: CLOPIDOGREL 75 MG TABLET PO SCH (09:10)
[2018-06-27] MEDS: LACTOBACILLUS (15B cfu) CAPSULE PO SCH ×3 (09:11→18:08)
[2018-06-27] MEDS: CARVEDILOL 3.125 MG TABLET PO SCH ×2 (09:11→20:05)
[2018-06-27] MEDS: FERROUS SULFATE 324 MG TABLET PO SCH (09:11)
--- NOTE | 2018-06-27 09:33 | Progress Note ---
- Date 06/27/18 Subjective: Meka is seen today in follow up, she is up in the chair and states that she if feeling good. She continues to be breathing on room air without distress. Denies having any abdominal pain or nausea. Ambulating to the bathroom to void. Continued bilateral lower ext edema. Weight remains elevated. Objective Vital signs: Temperature 98.4 F 06/27/18 07:25 Pulse Rate 72 06/27/18 07:25 Respiratory Rate 16 06/27/18 07:25 Blood Pressure 147/71 H 06/27/18 07:25 Pulse Oximetry 97 06/27/18 07:25 Height/Weight/BMI: Height 1.55 m Weight 103 kg Body Mass Index 40.9 - Constitutional Present: no acute distress, well nourished, well developed - Routine HEENT Exam Eye: Present: EOMI ENT: Present: mucous membranes moist, dentition normal - Routine Respiratory Exam Present: CTA bilaterally. Absent: wheezes - Routine Cardiovascular Exam Present: RRR, S1, S2. Absent: murmur - Routine Abdominal Exam Present: soft, normoactive bowel sounds, non distended. Absent: tenderness - Routine Extremities Exam Present: edema (Bilateral lower ext 3+) - Routine Skin Exam Present: dry, warm - Routine Neurological Exam Present: alert, oriented X3, CN II-XII intact - Routine Lymphatic Exam Lymphatic: Absent: adenopathy - Routine Psychiatric Exam Present: normal affect Results - Labs CBC & Chem 7: 06/27/18 05:39 06/27/18 05:39 Microbiology Results: Microbiology 06/23/18 09:06 Peripheral/Iv Start Blood Culture - Preliminary No Growth After 4 Days 06/23/18 09:04 Peripheral/Iv Start Blood Culture - Preliminary No Growth After 4 Days 06/24/18 03:42 Not Provided Urine Culture - Final Enterobacter aerogenes Assessment and Plan (1) Leukocytosis Current visit: Yes Status: Acute (2) Acute kidney injury Current visit: Yes Status: Acute Assessment and Plan: Assessment: Mild mesenteric inflammation - likely gastroenteritis Leukocytosis (WBC 28.2), POA Diarrhea Elevated TSH (TSH 12.40), POA Coronary artery disease with multiple stent placement on Plavix Atrial fibrillation Type II diabetes, insulin dependent Chronic kidney disease, stage III - follows with Dr. King Hypertension Congestive heart failure Peripheral neuropathy History of TIA Glaucoma Sleep apnea Chronic anticoagulation on Pradaxa Iron deficiency anemia Osteoarthritis GERD Morbid obesity with BMI 40.9 Plan Gastroenteritis symptoms appear to be improved today. Continue Culturelle. Remains on IV Flagyl. Leukocytosis continues to improve- WBC 15.[address] sinus report pending- was not sent to teleradiology overnight. Monitor blood sugars - fasting this morning 136. Encourage elevation of bilateral lower ext, Use antonio wraps for compression due to edema. Continue to follow renal function and electrolytes. Danilo CT sinuses without evidence of sinusitis. Will stop IVF as oral intake doing much better. DVT Prophylaxis: SCD's, KAITY Hose GI Prophylaxis: Protonix Resuscitation Status: Full Code - Time spent with patient Time with patient PN: 25 minutes - Physician Narrative Physician: Usman Carrasco MD Narrative: Date: 06/27/18 Time: 922 Have independently interviewed and examined pt. Chart reviewed. Case discussed with my DIRECTOR OF PUBLIC WORKS. Care plan developed with my supervision; agree with above. Having good day today. Up walking in halls-strength improving (stability still feels off-not steady enough to go without walker). Appetite doing well. Being cautious with intake-not eating as large of portions as she usually would, but feels is getting enough in). Bowels soft but not loose. No ab pain. Urinating well. Breathing well. Lungs: clear bilaterally CV: regular AB: soft nt MSE: awake alert appropriate Plan: Will stop IVF. Continue Metronidazole. Encourage continued ambulation. Medically improving-hope for discharge to skilled in upcoming days. Hospital Course Summary Disclaimer: The visit summary below is not to be considered part of the above Progress Note. Hospital Course: 06/23/18 Admit to observation status under the care of Dr. Carrasco. Chart and medications from [facility] reviewed. Monitor closely on telemetry given increased fatigue and history of a-fib. EKG in ED revealed rate controlled a-fib. Continue home amiodarone and Coreg. Patient reports she was seen by Dr. King last week and her Norvasc which was initiated during her previous hospitalization was discontinued due to poor renal function. Will obtain renal ultrasound given JOHAN in AM. Stool sample obtained was negative. Based on history, diarrhea most likely secondary to initiation of Victoza. Will hold Victoza. Resume home medications. Clear liquid diet. Monitor blood sugars closely. Monitor closely of signs of hypoglycemia. Will hold home lantus 40 units BID and home lispro 22 units TIDWM given clear liquid diet only. Sliding scale insulin as indicated. Urine culture pending. UA culture from [facility] on 06/22/18 revealed gram negative bacilli at 50-100K. Patient recently treated for pansensitive E.coli and completed prolonged treatment on 06/18/18 with Rocephin x 6 days and levoquin x 1 dose while hospitalized and Augmentin x 2 weeks as an outpatient. Initial lactate was 1.0. Repeat lactate was elevated at 2.1. Troponin <0.012. Patient remains afebrile. Initial chest x-ray was unremarkable. Will recheck in AM as history regarding pulmonary symptoms is unclear. TSH elevated on admission. Stable in 04/2018. Dose recently increased to 88 mcg daily per patient. Recommend close follow up as outpatient. Recheck labs in AM to monitor blood counts, electrolytes and renal function. Will hold home pradaxa and plavix at this time due to reports of GI bleeding. Monitor hemoglobin. Oral Vancomycin was initiated for possible colitis. Upon discharge, patient's care will be returned to her PCP, Dr. Richmond. Patient is a FULL CODE. 06/24/18 Renal ultrasound negative for acute process- known chronic renal cysts. Continue to hold Victoza- as this may be cause of loose stools Given persistent Leukocytosis well obtain CT scan of abdomen to rule out other etiology Sterile Technician slightly down at 2.9 Remains on PO Vancomycin and Culturelle. ? colitis Monitor blood sugars- Sliding scale insulin Chronic anticoagulation remains on hold. Hgb decreased from 12.1--> 9.9. Continue to monitor CT showing Mild mesenteric inflammation could represent a gastroenteritis or mesenteric panniculitis. With continued WBC, will add metronidazole for gastroenteritis. Decrease IVF to 80cc/hr. Will consult PT/OT in am to help improve strength and functional abilities. Change to inpatient admission secondary to continued leukocytosis with gastroenteritis. 06/25/18 Compression antonio wraps placed to bilateral lower ext to help with edema. Encouraged patient to leave them on during the day. Will resume home Torsemide daily for diuresis. Leukocytosis improving. Renal function continues to improve at 2.4 today. Tolerating PO intake. Monitor BP as it was elevated today. Suspect diuretics will help. Resume home Plavix and Pradaxa. Continue to follow blood sugars and SSI. Encourage work with PT/OT. 06/26/18 Continue with metronidazole for gastroenteritis with leukocytosis. Creatinine decrease to 2.3 - will decrease IVF to 50cc/hr as kidneys improving and oral drive increasing. Will start mealtime insulin at 12 units (home dose 23). Monitor sugars. Patient worries about sinusitis due to chronic drainage and now feeling more full to ears. TM look normal bilaterally. Will check CT sinuses to exclude infection. Sinuses were normal on CT done in ED at prior visit (05/29/18). Encourage activities and ambulation. 06/27/18 Gastroenteritis symptoms appear to be improved today. Continue Culturelle. Remains on IV Flagyl. Leukocytosis continues to improve - WBC 15.1 today. Can stop IVF as oral drive doing well and stool output/frequency decreased. Ct sinus report showing no pathology. Monitor blood sugars - fasting this morning 136. Encourage elevation of bilateral lower ext, Use antonio wraps for compression due to edema.
--- NOTE | 2018-06-27 11:31 | Pharmacy Consult- Renal Dosing ---
Pharamcy Consul-Renal Dosing - Laboratory Information 06/23/18 06/24/18 06/25/18 08:38 04:25 04:33 BUN 67.0 H* 58.0 H* 46.0 H Creatinine 3.1 H 2.9 H D 2.4 H D 06/26/18 06/27/18 04:51 05:39 BUN 44.0 H 36.0 H Creatinine 2.3 H 2.2 H - Consult Information RENAL DOSING: Day 5 Today's SCr = 2.2 mg/dl. Calculated CrCl = 25 ml/min. All medications currently ordered are dosed appropriately for today's renal function. The pharmacy will continue to monitor the renal function and adjust medications accordingly. Thanks, Todd Kraus, Pharmacist.
--- NOTE | 2018-06-27 12:43 | CT Scan Report ---
Indication: Leukocytosis - chronic sinus problems; exclude sinusitis PROCEDURE: CT sinus wo con: Encounter: Initial Comparison: None Technique: Axial CT images were performed through the sinuses without intravenous contrast. Coronal and sagittal two-dimensional reformats. Automated Exposure Control and Iterative Reconstruction dose reducing techniques were utilized. Findings: The paranasal sinuses are clear. No mucosal thickening or mucous retention cyst identified. The sphenoid ostia are widely patent. The left ostiomeatal unit is patent. The right ostiomeatal unit is mildly narrowed by mucosal thickening. Mild rightward nasal septal spurring. No significant nasal septal deviation. The mastoid air cells and middle ear cavities are clear. Impression: Negative sinus CT. There is a preliminary report by [employer]. .
[2018-06-27] MEDS: ALLOPURINOL 100 MG TABLET PO SCH (20:05)
[2018-06-28] MEDS: MetroNIDAZOLE PB 500 MG/100 ML BAG IV SCH ×3 (03:27→21:07)
[2018-06-28] MEDS: PANTOPRAZOLE 40 MG TABLET PO SCH (05:45)
[2018-06-28] MEDS: LORATADINE 10 MG TABLET PO SCH (05:46)
[2018-06-28] MEDS: LEVOTHYROXINE 88 MCG TABLET PO SCH (06:02)
[2018-06-28] MEDS: ISOSORBIDE MONONITRATE ER 30 MG TABLET PO SCH (06:03)
[2018-06-28] MEDS: INSULIN ASPART 100unit/ml INJECTION SQ SCH ×3 (09:12→17:40)
[2018-06-28] MEDS: CARVEDILOL 3.125 MG TABLET PO SCH ×2 (09:13→17:41)
[2018-06-28] MEDS: LACTOBACILLUS (15B cfu) CAPSULE PO SCH ×3 (09:13→17:40)
[2018-06-28] MEDS: FERROUS SULFATE 324 MG TABLET PO SCH (09:13)
[2018-06-28] MEDS: AMIODARONE 200 MG TABLET PO SCH (09:14)
[2018-06-28] MEDS: CLOPIDOGREL 75 MG TABLET PO SCH (09:14)
[2018-06-28] MEDS: TORSEMIDE 20 MG TABLET PO SCH (09:14)
[2018-06-28] MEDS: DABIGATRAN 75 MG PO SCH ×2 (09:15→21:07)
--- NOTE | 2018-06-28 09:50 | Pharmacy Consult- Renal Dosing ---
[facility] Consul-Renal Dosing - Laboratory Information 06/23/18 06/24/18 06/25/18 08:38 04:25 04:33 BUN 67.0 H* 58.0 H* 46.0 H Creatinine 3.1 H 2.9 H D 2.4 H D 06/26/18 06/27/18 06/28/18 04:51 05:39 04:26 BUN 44.0 H 36.0 H 36.0 H Creatinine 2.3 H 2.2 H 2.2 H - Consult Information Today's SCr = 2.2 mg/dl. Calculated CrCl = 25 ml/min. All medications currently ordered are dosed appropriately for today's renal function. The pharmacy will continue to monitor the renal function and adjust medications accordingly. Thanks,
[2018-06-28] MEDS: INSULIN ASPART 100unit/ml INJECTION SQ PRN ×2 (11:50→21:27)
--- NOTE | 2018-06-28 15:12 | Progress Note ---
- Date 06/28/18 Subjective: Meka is seen today in follow up. She is up in the chair and reports that she is feeling good today. She reports that she is been able to ambulate in the taveras with assistance and feels that she is getting stronger. Denies having any chest pain, shortness of breath or GI complaints. Appetite is good as she is eating 100% of meals. Vital signs normal. Objective Vital signs: Temperature 98.5 F 06/28/18 11:45 Pulse Rate 84 06/28/18 11:45 Respiratory Rate 18 06/28/18 11:45 Blood Pressure 133/76 06/28/18 11:45 Pulse Oximetry 98 06/28/18 13:02 Height/Weight/BMI: Height 1.55 m Weight 100.9 kg Body Mass Index 40.9 - Constitutional Present: no acute distress, well nourished, well developed - Routine HEENT Exam Eye: Present: EOMI ENT: Present: mucous membranes moist, dentition normal - Routine Respiratory Exam Present: CTA bilaterally. Absent: wheezes - Routine Cardiovascular Exam Present: RRR, S1, S2. Absent: murmur - Routine Abdominal Exam Present: soft, normoactive bowel sounds, non distended. Absent: tenderness - Routine Extremities Exam Present: edema (2+ Bilateral lower ext edema) - Routine Skin Exam Present: dry, warm - Routine Neurological Exam Present: alert, oriented X3, CN II-XII intact - Routine Lymphatic Exam Lymphatic: Absent: adenopathy - Routine Psychiatric Exam Present: normal affect Results - Labs CBC & Chem 7: 06/28/18 04:26 06/28/18 04:26 Microbiology Results: Microbiology 06/23/18 09:04 Peripheral/Iv Start Blood Culture - Final No Growth After 5 Days 06/23/18 09:06 Peripheral/Iv Start Blood Culture - Final No Growth After 5 Days 06/24/18 03:42 Not Provided Urine Culture - Final Enterobacter aerogenes Assessment and Plan (1) Leukocytosis Current visit: Yes Status: Acute (2) Acute kidney injury Current visit: Yes Status: Acute Assessment and Plan: Assessment: Mild mesenteric inflammation - likely gastroenteritis Leukocytosis (WBC 28.2), POA Diarrhea Elevated TSH (TSH 12.40), POA Coronary artery disease with multiple stent placement on Plavix Atrial fibrillation Type II diabetes, insulin dependent Chronic kidney disease, stage III - follows with Dr. King Hypertension Congestive heart failure Peripheral neuropathy History of TIA Glaucoma Sleep apnea Chronic anticoagulation on Pradaxa Iron deficiency anemia Osteoarthritis GERD Morbid obesity with BMI 40.9 Plan Gastroenteritis symptoms appear to be improved today. Continue Culturelle. Remains on IV Flagyl. Leukocytosis continues to improve- WBC 13.8 today. Continue to encourage antonio wraps to bilateral lower extremity to assist with edema Weight remains elevated from baseline- is on home torsemide dose Encourage her to ambulate QID Spoke with pt and CM regarding short tern SNU to continue to gain strength before returning home DVT Prophylaxis: SCD's, KAITY Hose GI Prophylaxis: Protonix Resuscitation Status: Full Code - Physician Narrative Physician: Vickey Jacobo MD Narrative: Date: 06/28/18 Time: 6 I have independently interviewed and examined patient. Patient chart reviewed. Case discussed with my [employer] ROUTEMAN. Care plan developed with my supervision, agree with above. Patient resting in bedside chair at the time of interview. Reports symptoms of diarrhea noted earlier has resolved. Patient consuming her meals without any recurrence of nausea, no reported abdominal pain. Patient able to work with physical therapy. Case discussed with case planner, who is working on disposition placement at this time. Physical exam: AAO x 3, NAD PERRLA, EOMI S1 and S2 heard on auscultation, no murmurs Lungs clear to auscultation bilaterally, no wheezing, no crackles Abdomen soft, nontender, positive bowel sounds 2+ edema bilateral lower extremities. Assessment: Gastroenteritis, resolving. Diarrhea, resolved. Leukocytosis, improved. Coronary artery disease, status post stent placement. Atrial fibrillation, CKD stage III, type 2 diabetes mellitus, hypertension, CHF, peripheral neuropathy, history of TIA, sleep apnea, iron deficiency anemia, anticoagulation with prior DEXA, morbid obesity, osteoarthritis, GERD Plan: Will continue IV Flagyl. WBC count improved to 13,800 today. Patient encouraged to ambulate, PT on board. traffic manager on board, tentative plan for short-term alf prior to discharge home. Hospital Course Summary Disclaimer: The visit summary below is not to be considered part of the above Progress Note. Hospital Course: 06/23/18 Admit to observation status under the care of Dr. Carrasco. Chart and medications from [facility] reviewed. Monitor closely on telemetry given increased fatigue and history of a-fib. EKG in ED revealed rate controlled a-fib. Continue home amiodarone and Coreg. Patient reports she was seen by Dr. King last week and her Norvasc which was initiated during her previous hospitalization was discontinued due to poor renal function. Will obtain renal ultrasound given OJHAN in AM. Stool sample obtained was negative. Based on history, diarrhea most likely secondary to initiation of Victoza. Will hold Victoza. Resume home medications. Clear liquid diet. Monitor blood sugars closely. Monitor closely of signs of hypoglycemia. Will hold home lantus 40 units BID and home lispro 22 units TIDWM given clear liquid diet only. Sliding scale insulin as indicated. Urine culture pending. UA culture from sn[facility] on 06/22/18 revealed gram negative bacilli at 50-100K. Patient recently treated for pansensitive E.coli and completed prolonged treatment on 06/18/18 with Rocephin x 6 days and levoquin x 1 dose while hospitalized and Augmentin x 2 weeks as an outpatient. Initial lactate was 1.0. Repeat lactate was elevated at 2.1. Troponin <0.012. Patient remains afebrile. Initial chest x-ray was unremarkable. Will recheck in AM as history regarding pulmonary symptoms is unclear. TSH elevated on admission. Stable in 04/2018. Dose recently increased to 88 mcg daily per patient. Recommend close follow up as outpatient. Recheck labs in AM to monitor blood counts, electrolytes and renal function. Will hold home pradaxa and plavix at this time due to reports of GI bleeding. Monitor hemoglobin. Oral Vancomycin was initiated for possible colitis. Upon discharge, patient's care will be returned to her PCP, Dr. Richmond. Patient is a FULL CODE. 06/24/18 Renal ultrasound negative for acute process- known chronic renal cysts. 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 ? colitis Monitor blood sugars- Sliding scale insulin Chronic anticoagulation remains on hold. Hgb decreased from 12.1--> 9.9. Continue to monitor CT showing Mild mesenteric inflammation could represent a gastroenteritis or mesenteric panniculitis. With continued WBC, will add metronidazole for gastroenteritis. Decrease IVF to 80cc/hr. Will consult PT/OT in am to help improve strength and functional abilities. Change to inpatient admission secondary to continued leukocytosis with gastroenteritis. 06/25/18 Compression antonio wraps placed to bilateral lower ext to help with edema. Encouraged patient to leave them on during the day. Will resume home Torsemide daily for diuresis. Leukocytosis improving. Renal function continues to improve at 2.4 today. Tolerating PO intake. Monitor BP as it was elevated today. Suspect diuretics will help. Resume home Plavix and Pradaxa. Continue to follow blood sugars and SSI. Encourage work with PT/OT. 06/26/18 Continue with metronidazole for gastroenteritis with leukocytosis. Creatinine decrease to 2.3 - will decrease IVF to 50cc/hr as kidneys improving and oral drive increasing. Will start mealtime insulin at 12 units (home dose 23). Monitor sugars. Patient worries about sinusitis due to chronic drainage and now feeling more full to ears. TM look normal bilaterally. Will check CT sinuses to exclude infection. Sinuses were normal on CT done in ED at prior visit (05/29/18). Encourage activities and ambulation. 06/27/18 Gastroenteritis symptoms appear to be improved today. Continue Culturelle. Remains on IV Flagyl. Leukocytosis continues to improve - WBC 15.1 today. Can stop IVF as oral drive doing well and stool output/frequency decreased. Ct sinus report showing no pathology. Monitor blood sugars - fasting this morning 136. Encourage elevation of bilateral lower ext, Use antonio wraps for compression due to edema. 06/28/18- Continue current plan. On IV Flagyl, Leukocytosis improving. Torsemide for edema- Weight remains elevated from admission wt. Continue to BLE antonio wraps for edema. Senior Sharepoint Developer stable. Encourage Ambulation. Discharge in the next 1-2 days- SNU - vs-home.
[2018-06-28] MEDS ORDERED: NS FLUSH BAG 500ml IV PRN (18:28)
[2018-06-28] MEDS: ALLOPURINOL 100 MG TABLET PO SCH (21:08)
[2018-06-29] MEDS: MetroNIDAZOLE PB 500 MG/100 ML BAG IV SCH ×2 (03:02→11:58)
[2018-06-29] MEDS: ISOSORBIDE MONONITRATE ER 30 MG TABLET PO SCH (06:35)
[2018-06-29] MEDS: LEVOTHYROXINE 88 MCG TABLET PO SCH (06:35)
[2018-06-29] MEDS: LORATADINE 10 MG TABLET PO SCH (06:35)
[2018-06-29] MEDS: PANTOPRAZOLE 40 MG TABLET PO SCH (06:35)
[2018-06-29] MEDS: INSULIN ASPART 100unit/ml INJECTION SQ SCH ×2 (08:00→11:57)
[2018-06-29] MEDS: FERROUS SULFATE 324 MG TABLET PO SCH (10:02)
[2018-06-29] MEDS: CLOPIDOGREL 75 MG TABLET PO SCH (10:02)
[2018-06-29] MEDS: TORSEMIDE 20 MG TABLET PO SCH (10:03)
[2018-06-29] MEDS: DABIGATRAN 75 MG PO SCH (10:03)
[2018-06-29] MEDS: LACTOBACILLUS (15B cfu) CAPSULE PO SCH ×2 (10:04→11:58)
[2018-06-29] MEDS: AMIODARONE 200 MG TABLET PO SCH (10:04)
[2018-06-29] MEDS: CARVEDILOL 3.125 MG TABLET PO SCH (10:04)
--- NOTE | 2018-06-29 10:33 | Progress Note ---
- Date 06/29/18 Subjective: F/U: Gastroenteritis, Leukocytosis Meka is seen this morning while sitting in her recliner. She reports that she is feeling much better. She denies any complaints or concerns. No chest pain, shortness of breath, abdominal pain, nausea, vomiting or dysuria. She reports that her sinuses are much clearer since she hasn't been around the cats. Leukocytosis resolved. Appetite is good and she remains afebrile. Plan to DC, hopefully today, to [facility]. Objective Vital signs: Temperature 96.2 F L 06/29/18 08:15 Pulse Rate 86 06/29/18 08:15 Respiratory Rate 18 06/29/18 08:15 Blood Pressure 127/68 06/29/18 08:15 Pulse Oximetry 97 06/29/18 08:15 Height/Weight/BMI: Height 5 ft 1 in Weight 222 lb 7.143 oz Body Mass Index 40.9 Comments: Sitting in recliner, breathing easily. - Constitutional Present: no acute distress, well nourished, well developed, morbidly obese, cooperative - Routine HEENT Exam Head: Present: normocephalic, atraumatic Eye: Present: PERRL. Absent: conjunctival icterus ENT: Present: mucous membranes moist, oropharynx clear - Routine Respiratory Exam Present: CTA bilaterally - Routine Cardiovascular Exam Present: RRR, S1, S2, no murmur - Routine Abdominal Exam Present: soft, normoactive bowel sounds, non distended, non tender - Routine Extremities Exam Present: edema (2+) - Routine Back/Spine/Pelvis Exam Back/Spine: Absent: CVA tenderness, vertebral tenderness - Routine Musculoskeletal Exam Musculoskeletal: Present: no clubbing or cyanosis, moving extremities well - Routine Skin Exam Present: intact, dry, warm Comments: Afebrile - Routine Neurological Exam Present: alert, oriented X3, moving all extremities, hearing grossly intact, normal speech - Routine Psychiatric Exam Present: normal affect, cooperative Results - Labs CBC & Chem 7: 06/29/18 04:41 06/29/18 04:41 Microbiology Results: Microbiology 06/23/18 09:04 Peripheral/Iv Start Blood Culture - Final No Growth After 5 Days 06/23/18 09:06 Peripheral/Iv Start Blood Culture - Final No Growth After 5 Days 06/24/18 03:42 Not Provided Urine Culture - Final Enterobacter aerogenes Assessment and Plan Assessment and Plan: Assessment: Mild mesenteric inflammation - likely gastroenteritis Leukocytosis (WBC 28.2), POA Diarrhea Elevated TSH (TSH 12.40), POA Coronary artery disease with multiple stent placement on Plavix Atrial fibrillation Type II diabetes, insulin dependent Chronic kidney disease, stage III - follows with Dr. King Hypertension Congestive heart failure Peripheral neuropathy History of TIA Glaucoma Sleep apnea Chronic anticoagulation on Pradaxa Iron deficiency anemia Osteoarthritis GERD Morbid obesity with BMI 40.9 Plan Gastroenteritis symptoms appear to be resolving and leukocytosis resolved. Continue Culturelle. Remains on IV Flagyl. Anticipate discharge on oral Flagyl to complete treatment course. Weight trending down. Continue on home torsemide dose. Monitor weight closely. Encourage her to ambulate QID. Anticipate discharge to [facility], hopefully today. DVT Prophylaxis: SCD's, KAITY Hose GI Prophylaxis: Protonix Resuscitation Status: Full Code - Time spent with patient Time with patient PN: 25 minutes - Physician Narrative Physician: Vickey Jacobo MD Narrative: Date: 06/29/18 Time: 1030 Refer discharge summary dated 06/29/2018. Hospital Course Summary Disclaimer: The visit summary below is not to be considered part of the above Progress Note. Hospital Course: 06/23/18 Admit to observation status under the care of Dr. Carrasco. Chart and medications from [facility] reviewed. Monitor closely on telemetry given increased fatigue and history of a-fib. EKG in ED revealed rate controlled a-fib. Continue home amiodarone and Coreg. Patient reports she was seen by Dr. King last week and her Norvasc which was initiated during her previous hospitalization was discontinued due to poor renal function. Will obtain renal ultrasound given JOHAN in AM. Stool sample obtained was negative. Based on history, diarrhea most likely secondary to initiation of Victoza. Will hold Victoza. Resume home medications. Clear liquid diet. Monitor blood sugars closely. Monitor closely of signs of hypoglycemia. Will hold home lantus 40 units BID and home lispro 22 units TIDWM given clear liquid diet only. Sliding scale insulin as indicated. Urine culture pending. [facility]A culture from [facility] on 06/22/18 revealed gram negative bacilli at 50-100K. Patient recently treated for pansensitive E.coli and completed prolonged treatment on 06/18/18 with Rocephin x 6 days and levoquin x 1 dose while hospitalized and Augmentin x 2 weeks as an outpatient. Initial lactate was 1.0. Repeat lactate was elevated at 2.1. Troponin <0.012. Patient remains afebrile. Initial chest x-ray was unremarkable. Will recheck in AM as history regarding pulmonary symptoms is unclear. TSH elevated on admission. Stable in 04/2018. Dose recently increased to 88 mcg daily per patient. Recommend close follow up as outpatient. Recheck labs in AM to monitor blood counts, electrolytes and renal function. Will hold home pradaxa and plavix at this time due to reports of GI bleeding. Monitor hemoglobin. Oral Vancomycin was initiated for possible colitis. Upon discharge, patient's care will be returned to her PCP, Dr. Richmond. Patient is a FULL CODE. 06/24/18 Renal ultrasound negative for acute process- known chronic renal cysts. Continue to hold Victoza- as this may be cause of loose stools Given persistent Leukocytosis well obtain CT scan of abdomen to rule out other etiology Infectious Diseases Physician slightly down at 2.9 Remains on PO Vancomycin and Culturelle. ? colitis Monitor blood sugars- Sliding scale insulin Chronic anticoagulation remains on hold. Hgb decreased from 12.1--> 9.9. Continue to monitor CT showing Mild mesenteric inflammation could represent a gastroenteritis or mesenteric panniculitis. With continued WBC, will add metronidazole for gastroenteritis. Decrease IVF to 80cc/hr. Will consult PT/OT in am to help improve strength and functional abilities. Change to inpatient admission secondary to continued leukocytosis with gastroenteritis. 06/25/18 Compression antonio wraps placed to bilateral lower ext to help with edema. Encouraged patient to leave them on during the day. Will resume home Torsemide daily for diuresis. Leukocytosis improving. Renal function continues to improve at 2.4 today. Tolerating PO intake. Monitor BP as it was elevated today. Suspect diuretics will help. Resume home Plavix and Pradaxa. Continue to follow blood sugars and SSI. Encourage work with PT/OT. 06/26/18 Continue with metronidazole for gastroenteritis with leukocytosis. Creatinine decrease to 2.3 - will decrease IVF to 50cc/hr as kidneys improving and oral drive increasing. Will start mealtime insulin at 12 units (home dose 23). Monitor sugars. Patient worries about sinusitis due to chronic drainage and now feeling more full to ears. TM look normal bilaterally. Will check CT sinuses to exclude infection. Sinuses were normal on CT done in ED at prior visit (05/29/18). Encourage activities and ambulation. 06/27/18 Gastroenteritis symptoms appear to be improved today. Continue Culturelle. Remains on IV Flagyl. Leukocytosis continues to improve - WBC 15.1 today. Can stop IVF as oral drive doing well and stool output/frequency decreased. Ct sinus report showing no pathology. Monitor blood sugars - fasting this morning 136. Encourage elevation of bilateral lower ext, Use antonio wraps for compression due to edema. 06/28/18- Continue current plan. On IV Flagyl, Leukocytosis improving. Torsemide for edema- Weight remains elevated from admission wt. Continue to BLE antonio wraps for edema. Infectious Diseases Physician stable. Encourage Ambulation. Discharge in the next 1-2 days- [facility] - vs-home. Gastroenteritis symptoms appear to be resolving and leukocytosis resolved. Continue Culturelle. Remains on IV Flagyl. Anticipate discharge on oral Flagyl to complete treatment course. Weight trending down. Continue on home torsemide dose. Monitor weight closely. Encourage her to ambulate QID. Anticipate discharge to [facility], hopefully today.
[2018-06-29] MEDS: INSULIN ASPART 100unit/ml INJECTION SQ PRN (11:57)
[2018-06-29 13:13] VITALS: BP 128/67; PULSE 81; RESP 16; TEMP 97.3; O2SAT 98
--- NOTE | 2018-06-29 13:46 | Discharge Summary ---
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 Leukocytosis (WBC 28.2), POA Diarrhea Elevated TSH (TSH 12.40), POA Coronary artery disease with multiple stent placement on Plavix Atrial fibrillation Type II diabetes, insulin dependent Chronic kidney disease, stage III - follows with Dr. King Hypertension Congestive heart failure Peripheral neuropathy History of TIA Glaucoma Sleep apnea Chronic anticoagulation on Pradaxa Iron deficiency anemia Osteoarthritis GERD Morbid obesity with BMI 40.9 - Laboratory Labs: Laboratory Tests 06/23/18 06/23/18 06/23/18 08:38 08:38 08:38 WBC 28.2 H* RBC 4.61 Hgb 12.1 Hct 38.2 MCV 82.9 MCH 26.2 MCHC 31.7 RDW Std Deviation 53.9 H Plt Count 373 D MPV 10.2 Immature Gran % (Auto) Not performed Neut % (Auto) Not performed Lymph % (Auto) Not performed [place] % (Auto) Not performed Eos % (Auto) Not performed Baso % (Auto) Not performed Neut # (Auto) Not performed Lymph # (Auto) Not performed [place] # (Auto) Not performed Eos # (Auto) Not performed Baso # (Auto) Not performed Abs Immat Gran (auto) Not performed Neutrophils % (Manual) 52.0 Band Neutrophils % 5.0 Lymphocytes % (Manual) 21.0 L Reactive Lymphs % 1.0 H Monocytes % (Manual) 10.0 H Eosinophils % (Manual) 10.0 H Metamyelocytes % 1.0 H Neutrophils # (Manual) 14.7 H Band Neutrophils # 1.4 Lymphocytes # (Manual) 5.9 H Abs React Lymphs (Man) 0.3 H Monocytes # (Manual) 2.8 H Eosinophils # (Manual) 2.8 H Metamyelocytes # 0.3 Polychromasia 1+ Poikilocytosis 1+ Anisocytosis 1+ Tear Drop Cells 1+ Ovalocytes [place]nam Cells RBC Morph Comment Abnormal INR 1.24 H APTT 41.1 H Turbidity < 20 Sodium 136 Potassium 5.0 Chloride 106 Carbon Dioxide 20 L Anion Gap 10 BUN 67.0 H* Creatinine 3.1 H Estimated Creat Clear 17 GFR Calculation 15 BUN/Creatinine Ratio 22 Glucose 93 Glucometer Calculated Osmolality 281 H Calcium 8.7 Phosphorus Magnesium Total Bilirubin 0.30 Icterus Index < 2 AST 17 ALT 16 Alkaline Phosphatase 112 Troponin I < 0.012 NT-Pro-B Natriuret Pep 254 H Total Protein 5.6 L Albumin 2.9 L Globulin 2.7 Albumin/Globulin Ratio 1.1 Plasma Lactate TSH 12.40 H D Specimen Hemolysis 16 Ur Collection Type Urine Color Urine Clarity Urine pH Ur Specific [place] Urine Protein Urine Glucose (UA) Urine Ketones Urine Occult Blood Urine Nitrate Urine Bilirubin Urine Urobilinogen Ur Leukocyte Esterase Urine RBC Urine WBC Urine WBC Clumps Ur Squamous Epith Cells Amorphous Sediment Urine Bacteria Ur Culture Indicated? Stl Cyclospora species Stool Rotavirus A PCR Stool Adenovirus (PCR) Stool Astrovirus (PCR) Stool Campylobacter PCR Stl C.difficile Tox PCR Stool Cryptosporidium PCR Stl E.coli Shiga Toxins Stl Enterotoxigenic E PCR Stool EPEC (PCR) Stool EAEC (PCR) Stool Entamoeba (PCR) Stool Giardia Lamblia PCR Stool Salmonella PCR Stool Sapovirus (PCR) Stl P. shigelloides PCR Stl Shigella/EIEC PCR St Y.enterocolitica PCR Stool Vibrio (PCR) Stl Vibrio cholera PCR Stl Norovirus GI/GII PCR 06/23/18 06/23/18 06/23/18 09:02 09:04 12:17 WBC RBC Hgb Hct MCV MCH MCHC RDW Std Deviation Plt Count MPV Immature Gran % (Auto) Neut % (Auto) Lymph % (Auto) [place] % (Auto) Eos % (Auto) Baso % (Auto) Neut # (Auto) Lymph # (Auto) [place] # (Auto) Eos # (Auto) Baso # (Auto) Abs Immat Gran (auto) Neutrophils % (Manual) Band Neutrophils % Lymphocytes % (Manual) Reactive Lymphs % Monocytes % (Manual) Eosinophils % (Manual) Metamyelocytes % Neutrophils # (Manual) Band Neutrophils # Lymphocytes # (Manual) Abs React Lymphs (Man) Monocytes # (Manual) Eosinophils # (Manual) Metamyelocytes # Polychromasia Poikilocytosis Anisocytosis Tear Drop Cells Ovalocytes Shabnam Cells RBC Morph Comment INR APTT Turbidity Sodium Potassium Chloride Carbon Dioxide Anion Gap BUN Creatinine Estimated Creat Clear GFR Calculation BUN/Creatinine Ratio Glucose Glucometer 77 Calculated Osmolality Calcium Phosphorus Magnesium Total Bilirubin Icterus Index AST ALT Alkaline Phosphatase Troponin I NT-Pro-B Natriuret Pep Total Protein Albumin Globulin Albumin/Globulin Ratio Plasma Lactate 1.0 TSH Specimen Hemolysis Ur Collection Type Urine, cath straight Urine Color Yellow Urine Clarity Clear Urine pH 5.5 Ur Specific [place] 1.025 Urine Protein 1+ A Urine Glucose (UA) Negative Urine Ketones Negative Urine Occult Blood Negative Urine Nitrate Negative Urine Bilirubin Negative Urine Urobilinogen 0.2 Ur Leukocyte Esterase Trace A Urine RBC None seen Urine WBC 1-3 Urine WBC Clumps Few Ur Squamous Epith Cells 0-5 Amorphous Sediment Moderate Urine Bacteria 1+ H Ur Culture Indicated? Cult not indicated Stl Cyclospora species Stool Rotavirus A PCR Stool Adenovirus (PCR) Stool Astrovirus (PCR) Stool Campylobacter PCR Stl C.difficile Tox PCR Stool Cryptosporidium PCR Stl E.coli Shiga Toxins Stl Enterotoxigenic E PCR Stool EPEC (PCR) Stool EAEC (PCR) Stool Entamoeba (PCR) Stool Giardia Lamblia PCR Stool Salmonella PCR Stool Sapovirus (PCR) Stl P. shigelloides PCR Stl Shigella/EIEC PCR St Y.enterocolitica PCR Stool Vibrio (PCR) Stl Vibrio cholera PCR Stl Norovirus GI/GII PCR 06/23/18 06/23/18 06/23/18 13:37 13:51 14:20 WBC RBC Hgb Hct MCV MCH MCHC RDW Std Deviation Plt Count MPV Immature Gran % (Auto) Neut % (Auto) Lymph % (Auto) [place] % (Auto) Eos % (Auto) Baso % (Auto) Neut # (Auto) Lymph # (Auto) [place] # (Auto) Eos # (Auto) Baso # (Auto) Abs Immat Gran (auto) Neutrophils % (Manual) Band Neutrophils % Lymphocytes % (Manual) Reactive Lymphs % Monocytes % (Manual) Eosinophils % (Manual) Metamyelocytes % Neutrophils # (Manual) Band Neutrophils # Lymphocytes # (Manual) Abs React Lymphs (Man) Monocytes # (Manual) Eosinophils # (Manual) Metamyelocytes # Polychromasia Poikilocytosis Anisocytosis Tear Drop Cells Ovalocytes [place] Cells RBC Morph Comment INR APTT Turbidity Sodium Potassium Chloride Carbon Dioxide Anion Gap BUN Creatinine Estimated Creat Clear GFR Calculation BUN/Creatinine Ratio Glucose Glucometer 113 Calculated Osmolality Calcium Phosphorus Magnesium Total Bilirubin Icterus Index AST ALT Alkaline Phosphatase Troponin I NT-Pro-B Natriuret Pep Total Protein Albumin Globulin Albumin/Globulin Ratio Plasma Lactate 2.1 TSH Specimen Hemolysis Ur Collection Type Urine Color Urine Clarity Urine pH Ur Specific [place] Urine Protein Urine Glucose (UA) Urine Ketones Urine Occult Blood Urine Nitrate Urine Bilirubin Urine Urobilinogen Ur Leukocyte Esterase Urine RBC Urine WBC Urine WBC Clumps Ur Squamous Epith Cells Amorphous Sediment Urine Bacteria Ur Culture Indicated? Stl Cyclospora species Negative Stool Rotavirus A PCR Negative Stool Adenovirus (PCR) Negative Stool Astrovirus (PCR) Negative Stool Campylobacter PCR Negative Stl C.difficile Tox PCR Negative Stool Cryptosporidium PCR Negative Stl E.coli Shiga Toxins Negative Stl Enterotoxigenic E PCR Negative Stool EPEC (PCR) Negative Stool EAEC (PCR) Negative Stool Entamoeba (PCR) Negative Stool Giardia Lamblia PCR Negative Stool Salmonella PCR Negative Stool Sapovirus (PCR) Negative Stl P. shigelloides PCR Negative Stl Shigella/EIEC PCR Negative St Y.enterocolitica PCR Negative Stool Vibrio (PCR) Negative Stl Vibrio cholera PCR Negative Stl Norovirus GI/GII PCR Negative 06/23/18 06/23/18 06/24/18 15:16 19:31 02:50 WBC RBC Hgb Hct MCV MCH MCHC RDW Std Deviation Plt Count MPV Immature Gran % (Auto) Neut % (Auto) Lymph % (Auto) [place] % (Auto) Eos % (Auto) Baso % (Auto) Neut # (Auto) Lymph # (Auto) [place] # (Auto) Eos # (Auto) Baso # (Auto) Abs Immat Gran (auto) Neutrophils % (Manual) Band Neutrophils % Lymphocytes % (Manual) Reactive Lymphs % Monocytes % (Manual) Eosinophils % (Manual) Metamyelocytes % Neutrophils # (Manual) Band Neutrophils # Lymphocytes # (Manual) Abs React Lymphs (Man) Monocytes # (Manual) Eosinophils # (Manual) Metamyelocytes # Polychromasia Poikilocytosis Anisocytosis Tear Drop Cells Ovalocytes Shabnam Cells RBC Morph Comment INR APTT Turbidity Sodium Potassium Chloride Carbon Dioxide Anion Gap BUN Creatinine Estimated Creat Clear GFR Calculation BUN/Creatinine Ratio Glucose Glucometer 159 110 57 Calculated Osmolality Calcium Phosphorus Magnesium Total Bilirubin Icterus Index AST ALT Alkaline Phosphatase Troponin I NT-Pro-B Natriuret Pep Total Protein Albumin Globulin Albumin/Globulin Ratio Plasma Lactate TSH Specimen Hemolysis Ur Collection Type Urine Color Urine Clarity Urine pH Ur Specific [place] Urine Protein Urine Glucose (UA) Urine Ketones Urine Occult Blood Urine Nitrate Urine Bilirubin Urine Urobilinogen Ur Leukocyte Esterase Urine RBC Urine WBC Urine WBC Clumps Ur Squamous Epith Cells Amorphous Sediment Urine Bacteria Ur Culture Indicated? Stl Cyclospora species Stool Rotavirus A PCR Stool Adenovirus (PCR) Stool Astrovirus (PCR) Stool Campylobacter PCR Stl C.difficile Tox PCR Stool Cryptosporidium PCR Stl E.coli Shiga Toxins Stl Enterotoxigenic E PCR Stool EPEC (PCR) Stool EAEC (PCR) Stool Entamoeba (PCR) Stool Giardia Lamblia PCR Stool Salmonella PCR Stool Sapovirus (PCR) Stl P. shigelloides PCR Stl Shigella/EIEC PCR St Y.enterocolitica PCR Stool Vibrio (PCR) Stl Vibrio cholera PCR Stl Norovirus GI/GII PCR 06/24/18 06/24/18 06/24/18 03:33 04:25 04:25 WBC 25.3 H* RBC 3.77 L Hgb 9.9 L D Hct 32.0 L D MCV 84.9 MCH 26.3 MCHC 30.9 L RDW Std Deviation 55.1 H Plt Count 286 MPV 10.6 Immature Gran % (Auto) Not performed Neut % (Auto) Not performed Lymph % (Auto) Not performed [place] % (Auto) Not performed Eos % (Auto) Not performed Baso % (Auto) Not performed Neut # (Auto) Not performed Lymph # (Auto) Not performed [place] # (Auto) Not performed Eos # (Auto) Not performed Baso # (Auto) Not performed Abs Immat Gran (auto) Not performed Neutrophils % (Manual) 32.0 L Band Neutrophils % 4.0 Lymphocytes % (Manual) 24.0 Reactive Lymphs % Monocytes % (Manual) 10.0 H Eosinophils % (Manual) 27.0 H Metamyelocytes % 3.0 H Neutrophils # (Manual) 8.1 H Band Neutrophils # 1.0 Lymphocytes # (Manual) 6.1 H Abs React Lymphs (Man) Monocytes # (Manual) 2.5 H Eosinophils # (Manual) 6.8 H Metamyelocytes # 0.8 Polychromasia Poikilocytosis 1+ Anisocytosis 1+ Tear Drop Cells Ovalocytes 1+ [place] Cells RBC Morph Comment Abnormal INR APTT Turbidity < 20 Sodium 137 Potassium 4.3 Chloride 110 H Carbon Dioxide 20 L Anion Gap 7 BUN 58.0 H* Creatinine 2.9 H D Estimated Creat Clear 19 GFR Calculation 16 BUN/Creatinine Ratio 20 Glucose 118 H Glucometer 100 Calculated Osmolality 281 H Calcium 7.5 L D Phosphorus 5.5 H Magnesium 2.1 Total Bilirubin Icterus Index < 2 AST ALT Alkaline Phosphatase Troponin I NT-Pro-B Natriuret Pep Total Protein Albumin Globulin Albumin/Globulin Ratio Plasma Lactate TSH Specimen Hemolysis < 15 Ur Collection Type Urine Color Urine Clarity Urine pH Ur Specific [place] Urine Protein Urine Glucose (UA) Urine Ketones Urine Occult Blood Urine Nitrate Urine Bilirubin Urine Urobilinogen Ur Leukocyte Esterase Urine RBC Urine WBC Urine WBC Clumps Ur Squamous Epith Cells Amorphous Sediment Urine Bacteria Ur Culture Indicated? Stl Cyclospora species Stool Rotavirus A PCR Stool Adenovirus (PCR) Stool Astrovirus (PCR) Stool Campylobacter PCR Stl C.difficile Tox PCR Stool Cryptosporidium PCR Stl E.coli Shiga Toxins Stl Enterotoxigenic E PCR Stool EPEC (PCR) Stool EAEC (PCR) Stool Entamoeba (PCR) Stool Giardia Lamblia PCR Stool Salmonella PCR Stool Sapovirus (PCR) Stl P. shigelloides PCR Stl Shigella/EIEC PCR St Y.enterocolitica PCR Stool Vibrio (PCR) Stl Vibrio cholera PCR Stl Norovirus GI/GII PCR 06/24/18 06/24/18 06/24/18 10:28 15:00 20:33 WBC RBC Hgb Hct MCV MCH MCHC RDW Std Deviation Plt Count MPV Immature Gran % (Auto) Neut % (Auto) Lymph % (Auto) [place] % (Auto) Eos % (Auto) Baso % (Auto) Neut # (Auto) Lymph # (Auto) [place] # (Auto) Eos # (Auto) Baso # (Auto) Abs Immat Gran (auto) Neutrophils % (Manual) Band Neutrophils % Lymphocytes % (Manual) Reactive Lymphs % Monocytes % (Manual) Eosinophils % (Manual) Metamyelocytes % Neutrophils # (Manual) Band Neutrophils # Lymphocytes # (Manual) Abs React Lymphs (Man) Monocytes # (Manual) Eosinophils # (Manual) Metamyelocytes # Polychromasia Poikilocytosis Anisocytosis Tear Drop Cells Ovalocytes Sh[place]nam Cells RBC Morph Comment INR APTT Turbidity Sodium Potassium Chloride Carbon Dioxide Anion Gap BUN Creatinine Estimated Creat Clear GFR Calculation BUN/Creatinine Ratio Glucose Glucometer 208 144 130 Calculated Osmolality Calcium Phosphorus Magnesium Total Bilirubin Icterus Index AST ALT Alkaline Phosphatase Troponin I NT-Pro-B Natriuret Pep Total Protein Albumin Globulin Albumin/Globulin Ratio Plasma Lactate TSH Specimen Hemolysis Ur Collection Type Urine Color Urine Clarity Urine pH Ur Specific [place] Urine Protein Urine Glucose (UA) Urine Ketones Urine Occult Blood Urine Nitrate Urine Bilirubin Urine Urobilinogen Ur Leukocyte Esterase Urine RBC Urine WBC Urine WBC Clumps Ur Squamous Epith Cells Amorphous Sediment Urine Bacteria Ur Culture Indicated? Stl Cyclospora species Stool Rotavirus A PCR Stool Adenovirus (PCR) Stool Astrovirus (PCR) Stool Campylobacter PCR Stl C.difficile Tox PCR Stool Cryptosporidium PCR Stl E.coli Shiga Toxins Stl Enterotoxigenic E PCR Stool EPEC (PCR) Stool EAEC (PCR) Stool Entamoeba (PCR) Stool Giardia Lamblia PCR Stool Salmonella PCR Stool Sapovirus (PCR) Stl P. shigelloides PCR Stl Shigella/EIEC PCR St Y.enterocolitica PCR Stool Vibrio (PCR) Stl Vibrio cholera PCR Stl Norovirus GI/GII PCR 06/25/18 06/25/18 06/25/18 04:33 04:33 05:52 WBC 19.1 H RBC 3.85 L Hgb 10.0 L Hct 32.7 L MCV 84.9 MCH 26.0 MCHC 30.6 L RDW Std Deviation 55.5 H Plt Count 286 MPV 10.4 Immature Gran % (Auto) Not performed Neut % (Auto) Not performed Lymph % (Auto) Not performed [place] % (Auto) Not performed Eos % (Auto) Not performed Baso % (Auto) Not performed Neut # (Auto) Not performed Lymph # (Auto) Not performed [place] # (Auto) Not performed Eos # (Auto) Not performed Baso # (Auto) Not performed Abs Immat Gran (auto) Not performed Neutrophils % (Manual) 57.0 Band Neutrophils % 2.0 Lymphocytes % (Manual) 20.0 L Reactive Lymphs % Monocytes % (Manual) 2.0 Eosinophils % (Manual) 19.0 H Metamyelocytes % Neutrophils # (Manual) 10.9 H Band Neutrophils # 0.4 Lymphocytes # (Manual) 3.8 Abs React Lymphs (Man) Monocytes # (Manual) 0.4 Eosinophils # (Manual) 3.6 H Metamyelocytes # Polychromasia Poikilocytosis 1+ Anisocytosis 1+ Tear Drop Cells 1+ Ovalocytes 1+ [place] Cells RBC Morph Comment Abnormal INR APTT Turbidity < 20 Sodium 143 D Potassium 4.8 Chloride 116 H Carbon Dioxide 19 L Anion Gap 8 BUN 46.0 H Creatinine 2.4 H D Estimated Creat Clear 23 GFR Calculation 20 BUN/Creatinine Ratio 19 Glucose 149 H Glucometer 159 Calculated Osmolality 290 H Calcium 8.2 L D Phosphorus Magnesium Total Bilirubin Icterus Index < 2 AST ALT Alkaline Phosphatase Troponin I NT-Pro-B Natriuret Pep Total Protein Albumin Globulin Albumin/Globulin Ratio Plasma Lactate TSH Specimen Hemolysis < 15 Ur Collection Type Urine Color Urine Clarity Urine pH Ur Specific [place] Urine Protein Urine Glucose (UA) Urine Ketones Urine Occult Blood Urine Nitrate Urine Bilirubin Urine Urobilinogen Ur Leukocyte Esterase Urine RBC Urine WBC Urine WBC Clumps Ur Squamous Epith Cells Amorphous Sediment Urine Bacteria Ur Culture Indicated? Stl Cyclospora species Stool Rotavirus A PCR Stool Adenovirus (PCR) Stool Astrovirus (PCR) Stool Campylobacter PCR Stl C.difficile Tox PCR Stool Cryptosporidium PCR Stl E.coli Shiga Toxins Stl Enterotoxigenic E PCR Stool EPEC (PCR) Stool EAEC (PCR) Stool Entamoeba (PCR) Stool Giardia Lamblia PCR Stool Salmonella PCR Stool Sapovirus (PCR) Stl P. shigelloides PCR Stl Shigella/EIEC PCR St Y.enterocolitica PCR Stool Vibrio (PCR) Stl Vibrio cholera PCR Stl Norovirus GI/GII PCR 06/25/18 06/25/18 06/25/18 10:22 14:42 20:09 WBC RBC Hgb Hct MCV MCH MCHC RDW Std Deviation Plt Count MPV Immature Gran % (Auto) Neut % (Auto) Lymph % (Auto) [place] % (Auto) Eos % (Auto) Baso % (Auto) Neut # (Auto) Lymph # (Auto) [place] # (Auto) Eos # (Auto) Baso # (Auto) Abs Immat Gran (auto) Neutrophils % (Manual) Band Neutrophils % Lymphocytes % (Manual) Reactive Lymphs % Monocytes % (Manual) Eosinophils % (Manual) Metamyelocytes % Neutrophils # (Manual) Band Neutrophils # Lymphocytes # (Manual) Abs React Lymphs (Man) Monocytes # (Manual) Eosinophils # (Manual) Metamyelocytes # Polychromasia Poikilocytosis Anisocytosis Tear Drop Cells Ovalocytes [place] Cells RBC Morph Comment INR APTT Turbidity Sodium Potassium Chloride Carbon Dioxide Anion Gap BUN Creatinine Estimated Creat Clear GFR Calculation BUN/Creatinine Ratio Glucose Glucometer 318 188 222 Calculated Osmolality Calcium Phosphorus Magnesium Total Bilirubin Icterus Index AST ALT Alkaline Phosphatase Troponin I NT-Pro-B Natriuret Pep Total Protein Albumin Globulin Albumin/Globulin Ratio Plasma Lactate TSH Specimen Hemolysis Ur Collection Type Urine Color Urine Clarity Urine pH Ur Specific [place] Urine Protein Urine Glucose (UA) Urine Ketones Urine Occult Blood Urine Nitrate Urine Bilirubin Urine Urobilinogen Ur Leukocyte Esterase Urine RBC Urine WBC Urine WBC Clumps Ur Squamous Epith Cells Amorphous Sediment Urine Bacteria Ur Culture Indicated? Stl Cyclospora species Stool Rotavirus A PCR Stool Adenovirus (PCR) Stool Astrovirus (PCR) Stool Campylobacter PCR Stl C.difficile Tox PCR Stool Cryptosporidium PCR Stl E.coli Shiga Toxins Stl Enterotoxigenic E PCR Stool EPEC (PCR) Stool EAEC (PCR) Stool Entamoeba (PCR) Stool Giardia Lamblia PCR Stool Salmonella PCR Stool Sapovirus (PCR) Stl P. shigelloides PCR Stl Shigella/EIEC PCR St Y.enterocolitica PCR Stool Vibrio (PCR) Stl Vibrio cholera PCR Stl Norovirus GI/GII PCR 06/26/18 06/26/18 06/26/18 03:41 04:51 04:51 WBC 20.1 H RBC 3.83 L Hgb 10.0 L Hct 32.1 L MCV 83.8 MCH 26.1 MCHC 31.2 RDW Std Deviation 55.3 H Plt Count 260 MPV 10.2 Immature Gran % (Auto) Not performed Neut % (Auto) Not performed Lymph % (Auto) Not performed [place] % (Auto) Not performed Eos % (Auto) Not performed Baso % (Auto) Not performed Neut # (Auto) Not performed Lymph # (Auto) Not performed [place] # (Auto) Not performed Eos # (Auto) Not performed Baso # (Auto) Not performed Abs Immat Gran (auto) Not performed Neutrophils % (Manual) 45.0 Band Neutrophils % 1.0 Lymphocytes % (Manual) 24.0 Reactive Lymphs % Monocytes % (Manual) 2.0 Eosinophils % (Manual) 26.0 H Metamyelocytes % 2.0 H Neutrophils # (Manual) 9.0 H Band Neutrophils # 0.2 Lymphocytes # (Manual) 4.8 Abs React Lymphs (Man) Monocytes # (Manual) 0.4 Eosinophils # (Manual) 5.2 H Metamyelocytes # 0.4 Polychromasia Poikilocytosis 1+ Anisocytosis 1+ Tear Drop Cells Ovalocytes 1+ [place] Cells 1+ RBC Morph Comment Abnormal INR APTT Turbidity < 20 Sodium 142 Potassium 4.7 Chloride 115 H Carbon Dioxide 19 L Anion Gap 8 BUN 44.0 H Creatinine 2.3 H Estimated Creat Clear 24 GFR Calculation 21 BUN/Creatinine Ratio 19 Glucose 148 H Glucometer 170 Calculated Osmolality 287 H Calcium 8.3 L Phosphorus Magnesium Total Bilirubin Icterus Index < 2 AST ALT Alkaline Phosphatase Troponin I NT-Pro-B Natriuret Pep Total Protein Albumin Globulin Albumin/Globulin Ratio Plasma Lactate TSH Specimen Hemolysis 17 Ur Collection Type Urine Color Urine Clarity Urine pH Ur Specific [place] Urine Protein Urine Glucose (UA) Urine Ketones Urine Occult Blood Urine Nitrate Urine Bilirubin Urine Urobilinogen Ur Leukocyte Esterase Urine RBC Urine WBC Urine WBC Clumps Ur Squamous Epith Cells Amorphous Sediment Urine Bacteria Ur Culture Indicated? Stl Cyclospora species Stool Rotavirus A PCR Stool Adenovirus (PCR) Stool Astrovirus (PCR) Stool Campylobacter PCR Stl C.difficile Tox PCR Stool Cryptosporidium PCR Stl E.coli Shiga Toxins Stl Enterotoxigenic E PCR Stool EPEC (PCR) Stool EAEC (PCR) Stool Entamoeba (PCR) Stool Giardia Lamblia PCR Stool Salmonella PCR Stool Sapovirus (PCR) Stl P. shigelloides PCR Stl Shigella/EIEC PCR St Y.enterocolitica PCR Stool Vibrio (PCR) Stl Vibrio cholera PCR Stl Norovirus GI/GII PCR 06/26/18 06/26/18 06/26/18 05:54 10:12 15:04 WBC RBC Hgb Hct MCV MCH MCHC RDW Std Deviation Plt Count MPV Immature Gran % (Auto) Neut % (Auto) Lymph % (Auto) [place] % (Auto) Eos % (Auto) Baso % (Auto) Neut # (Auto) Lymph # (Auto) [place] # (Auto) Eos # (Auto) Baso # (Auto) Abs Immat Gran (auto) Neutrophils % (Manual) Band Neutrophils % Lymphocytes % (Manual) Reactive Lymphs % Monocytes % (Manual) Eosinophils % (Manual) Metamyelocytes % Neutrophils # (Manual) Band Neutrophils # Lymphocytes # (Manual) Abs React Lymphs (Man) Monocytes # (Manual) Eosinophils # (Manual) Metamyelocytes # Polychromasia Poikilocytosis Anisocytosis Tear Drop Cells Ovalocytes [place] Cells RBC Morph Comment INR APTT Turbidity Sodium Potassium Chloride Carbon Dioxide Anion Gap BUN Creatinine Estimated Creat Clear GFR Calculation BUN/Creatinine Ratio Glucose Glucometer 180 226 288 Calculated Osmolality Calcium Phosphorus Magnesium Total Bilirubin Icterus Index AST ALT Alkaline Phosphatase Troponin I NT-Pro-B Natriuret Pep Total Protein Albumin Globulin Albumin/Globulin Ratio Plasma Lactate TSH Specimen Hemolysis Ur Collection Type Urine Color Urine Clarity Urine pH Ur Specific [place] Urine Protein Urine Glucose (UA) Urine Ketones Urine Occult Blood Urine Nitrate Urine Bilirubin Urine Urobilinogen Ur Leukocyte Esterase Urine RBC Urine WBC Urine WBC Clumps Ur Squamous Epith Cells Amorphous Sediment Urine Bacteria Ur Culture Indicated? Stl Cyclospora species Stool Rotavirus A PCR Stool Adenovirus (PCR) Stool Astrovirus (PCR) Stool Campylobacter PCR Stl C.difficile Tox PCR Stool Cryptosporidium PCR Stl E.coli Shiga Toxins Stl Enterotoxigenic E PCR Stool EPEC (PCR) Stool EAEC (PCR) Stool Entamoeba (PCR) Stool Giardia Lamblia PCR Stool Salmonella PCR Stool Sapovirus (PCR) Stl P. shigelloides PCR Stl Shigella/EIEC PCR St Y.enterocolitica PCR Stool Vibrio (PCR) Stl Vibrio cholera PCR Stl Norovirus GI/GII PCR 06/26/18 06/27/18 06/27/18 20:23 05:39 05:39 WBC 15.1 H RBC 3.41 L Hgb 9.0 L Hct 28.7 L MCV 84.2 MCH 26.4 MCHC 31.4 RDW Std Deviation 55.5 H Plt Count 211 MPV 10.6 Immature Gran % (Auto) Not performed Neut % (Auto) Not performed Lymph % (Auto) Not performed [place] % (Auto) Not performed Eos % (Auto) Not performed Baso % (Auto) Not performed Neut # (Auto) Not performed Lymph # (Auto) Not performed [place] # (Auto) Not performed Eos # (Auto) Not performed Baso # (Auto) Not performed Abs Immat Gran (auto) Not performed Neutrophils % (Manual) 45.0 Band Neutrophils % 1.0 Lymphocytes % (Manual) 14.0 L Reactive Lymphs % Monocytes % (Manual) 1.0 Eosinophils % (Manual) 38.0 H Metamyelocytes % 1.0 H Neutrophils # (Manual) 6.8 Band Neutrophils # 0.2 Lymphocytes # (Manual) 2.1 Abs React Lymphs (Man) Monocytes # (Manual) 0.2 Eosinophils # (Manual) 5.7 H Metamyelocytes # 0.2 Polychromasia Poikilocytosis 1+ Anisocytosis 1+ Tear Drop Cells Ovalocytes 1+ [place] Cells 1+ RBC Morph Comment Abnormal INR APTT Turbidity < 20 Sodium 142 Potassium 4.5 Chloride 115 H Carbon Dioxide 20 L Anion Gap 7 BUN 36.0 H Creatinine 2.2 H Estimated Creat Clear 25 GFR Calculation 22 BUN/Creatinine Ratio 16 Glucose 136 H Glucometer 171 Calculated Osmolality 283 H Calcium 7.9 L Phosphorus Magnesium Total Bilirubin Icterus Index < 2 AST ALT Alkaline Phosphatase Troponin I NT-Pro-B Natriuret Pep Total Protein Albumin Globulin Albumin/Globulin Ratio Plasma Lactate TSH Specimen Hemolysis < 15 Ur Collection Type Urine Color Urine Clarity Urine pH Ur Specific [place] Urine Protein Urine Glucose (UA) Urine Ketones Urine Occult Blood Urine Nitrate Urine Bilirubin Urine Urobilinogen Ur Leukocyte Esterase Urine RBC Urine WBC Urine WBC Clumps Ur Squamous Epith Cells Amorphous Sediment Urine Bacteria Ur Culture Indicated? Stl Cyclospora species Stool Rotavirus A PCR Stool Adenovirus (PCR) Stool Astrovirus (PCR) Stool Campylobacter PCR Stl C.difficile Tox PCR Stool Cryptosporidium PCR Stl E.coli Shiga Toxins Stl Enterotoxigenic E PCR Stool EPEC (PCR) Stool EAEC (PCR) Stool Entamoeba (PCR) Stool Giardia Lamblia PCR Stool Salmonella PCR Stool Sapovirus (PCR) Stl P. shigelloides PCR Stl Shigella/EIEC PCR St Y.enterocolitica PCR Stool Vibrio (PCR) Stl Vibrio cholera PCR Stl Norovirus GI/GII PCR 06/27/18 06/27/18 06/27/18 06:11 11:08 14:12 WBC RBC Hgb Hct MCV MCH MCHC RDW Std Deviation Plt Count MPV Immature Gran % (Auto) Neut % (Auto) Lymph % (Auto) [place] % (Auto) Eos % (Auto) Baso % (Auto) Neut # (Auto) Lymph # (Auto) [place] # (Auto) Eos # (Auto) Baso # (Auto) Abs Immat Gran (auto) Neutrophils % (Manual) Band Neutrophils % Lymphocytes % (Manual) Reactive Lymphs % Monocytes % (Manual) Eosinophils % (Manual) Metamyelocytes % Neutrophils # (Manual) Band Neutrophils # Lymphocytes # (Manual) Abs React Lymphs (Man) Monocytes # (Manual) Eosinophils # (Manual) Metamyelocytes # Polychromasia Poikilocytosis Anisocytosis Tear Drop Cells Ovalocytes [place] Cells RBC Morph Comment INR APTT Turbidity Sodium Potassium Chloride Carbon Dioxide Anion Gap BUN Creatinine Estimated Creat Clear GFR Calculation BUN/Creatinine Ratio Glucose Glucometer 161 216 162 Calculated Osmolality Calcium Phosphorus Magnesium Total Bilirubin Icterus Index AST ALT Alkaline Phosphatase Troponin I NT-Pro-B Natriuret Pep Total Protein Albumin Globulin Albumin/Globulin Ratio Plasma Lactate TSH Specimen Hemolysis Ur Collection Type Urine Color Urine Clarity Urine pH Ur Specific [place] Urine Protein Urine Glucose (UA) Urine Ketones Urine Occult Blood Urine Nitrate Urine Bilirubin Urine Urobilinogen Ur Leukocyte Esterase Urine RBC Urine WBC Urine WBC Clumps Ur Squamous Epith Cells Amorphous Sediment Urine Bacteria Ur Culture Indicated? Stl Cyclospora species Stool Rotavirus A PCR Stool Adenovirus (PCR) Stool Astrovirus (PCR) Stool Campylobacter PCR Stl C.difficile Tox PCR Stool Cryptosporidium PCR Stl E.coli Shiga Toxins Stl Enterotoxigenic E PCR Stool EPEC (PCR) Stool EAEC (PCR) Stool Entamoeba (PCR) Stool Giardia Lamblia PCR Stool Salmonella PCR Stool Sapovirus (PCR) Stl P. shigelloides PCR Stl Shigella/EIEC PCR St Y.enterocolitica PCR Stool Vibrio (PCR) Stl Vibrio cholera PCR Stl Norovirus GI/GII PCR 06/27/18 06/28/18 06/28/18 20:25 04:26 04:26 WBC 13.8 H RBC 3.67 L Hgb 9.4 L Hct 30.8 L MCV 83.9 MCH 25.6 L MCHC 30.5 L RDW Std Deviation 56.1 H Plt Count 203 MPV 10.5 Immature Gran % (Auto) 1.0 H Neut % (Auto) 39.6 Lymph % (Auto) 23.0 [place] % (Auto) 6.4 Eos % (Auto) 29.6 H Baso % (Auto) 0.4 Neut # (Auto) 5.5 Lymph # (Auto) 3.2 [place] # (Auto) 0.9 H Eos # (Auto) 4.1 H Baso # (Auto) 0.1 Abs Immat Gran (auto) 0.14 H Neutrophils % (Manual) Band Neutrophils % Lymphocytes % (Manual) Reactive Lymphs % Monocytes % (Manual) Eosinophils % (Manual) Metamyelocytes % Neutrophils # (Manual) Band Neutrophils # Lymphocytes # (Manual) Abs React Lymphs (Man) Monocytes # (Manual) Eosinophils # (Manual) Metamyelocytes # Polychromasia Poikilocytosis Anisocytosis Tear Drop Cells Ovalocytes [place] Cells RBC Morph Comment INR APTT Turbidity < 20 Sodium 141 Potassium 4.0 Chloride 113 H Carbon Dioxide 20 L Anion Gap 8 BUN 36.0 H Creatinine 2.2 H Estimated Creat Clear 25 GFR Calculation 22 BUN/Creatinine Ratio 16 Glucose 147 H Glucometer 111 Calculated Osmolality 282 H Calcium 8.2 L Phosphorus Magnesium Total Bilirubin Icterus Index < 2 AST ALT Alkaline Phosphatase Troponin I NT-Pro-B Natriuret Pep Total Protein Albumin Globulin Albumin/Globulin Ratio Plasma Lactate TSH Specimen Hemolysis < 15 Ur Collection Type Urine Color Urine Clarity Urine pH Ur Specific [place] Urine Protein Urine Glucose (UA) Urine Ketones Urine Occult Blood Urine Nitrate Urine Bilirubin Urine Urobilinogen Ur Leukocyte Esterase Urine RBC Urine WBC Urine WBC Clumps Ur Squamous Epith Cells Amorphous Sediment Urine Bacteria Ur Culture Indicated? Stl Cyclospora species Stool Rotavirus A PCR Stool Adenovirus (PCR) Stool Astrovirus (PCR) Stool Campylobacter PCR Stl C.difficile Tox PCR Stool Cryptosporidium PCR Stl E.coli Shiga Toxins Stl Enterotoxigenic E PCR Stool EPEC (PCR) Stool EAEC (PCR) Stool Entamoeba (PCR) Stool Giardia Lamblia PCR Stool Salmonella PCR Stool Sapovirus (PCR) Stl P. shigelloides PCR Stl Shigella/EIEC PCR St Y.enterocolitica PCR Stool Vibrio (PCR) Stl Vibrio cholera PCR Stl Norovirus GI/GII PCR 06/28/18 06/28/18 06/28/18 06:15 11:43 15:18 WBC RBC Hgb Hct MCV MCH MCHC RDW Std Deviation Plt Count MPV Immature Gran % (Auto) Neut % (Auto) Lymph % (Auto) [place] % (Auto) Eos % (Auto) Baso % (Auto) Neut # (Auto) Lymph # (Auto) [place] # (Auto) Eos # (Auto) Baso # (Auto) Abs Immat Gran (auto) Neutrophils % (Manual) Band Neutrophils % Lymphocytes % (Manual) Reactive Lymphs % Monocytes % (Manual) Eosinophils % (Manual) Metamyelocytes % Neutrophils # (Manual) Band Neutrophils # Lymphocytes # (Manual) Abs React Lymphs (Man) Monocytes # (Manual) Eosinophils # (Manual) Metamyelocytes # Polychromasia Poikilocytosis Anisocytosis Tear Drop Cells Ovalocytes [place] Cells RBC Morph Comment INR APTT Turbidity Sodium Potassium Chloride Carbon Dioxide Anion Gap BUN Creatinine Estimated Creat Clear GFR Calculation BUN/Creatinine Ratio Glucose Glucometer 174 248 161 Calculated Osmolality Calcium Phosphorus Magnesium Total Bilirubin Icterus Index AST ALT Alkaline Phosphatase Troponin I NT-Pro-B Natriuret Pep Total Protein Albumin Globulin Albumin/Globulin Ratio Plasma Lactate TSH Specimen Hemolysis Ur Collection Type Urine Color Urine Clarity Urine pH Ur Specific [place] Urine Protein Urine Glucose (UA) Urine Ketones Urine Occult Blood Urine Nitrate Urine Bilirubin Urine Urobilinogen Ur Leukocyte Esterase Urine RBC Urine WBC Urine WBC Clumps Ur Squamous Epith Cells Amorphous Sediment Urine Bacteria Ur Culture Indicated? Stl Cyclospora species Stool Rotavirus A PCR Stool Adenovirus (PCR) Stool Astrovirus (PCR) Stool Campylobacter PCR Stl C.difficile Tox PCR Stool Cryptosporidium PCR Stl E.coli Shiga Toxins Stl Enterotoxigenic E PCR Stool EPEC (PCR) Stool EAEC (PCR) Stool Entamoeba (PCR) Stool Giardia Lamblia PCR Stool Salmonella PCR Stool Sapovirus (PCR) Stl P. shigelloides PCR Stl Shigella/EIEC PCR St Y.enterocolitica PCR Stool Vibrio (PCR) Stl Vibrio cholera PCR Stl Norovirus GI/GII PCR 06/28/18 06/29/18 06/29/18 20:59 04:41 04:41 WBC 11.0 RBC 3.77 L Hgb 9.6 L Hct 31.2 L MCV 82.8 MCH 25.5 L MCHC 30.8 L RDW Std Deviation 54.1 H Plt Count 181 MPV 10.7 Immature Gran % (Auto) 1.0 H Neut % (Auto) 37.8 Lymph % (Auto) 27.4 [place] % (Auto) 7.4 Eos % (Auto) 25.8 H Baso % (Auto) 0.6 Neut # (Auto) 4.2 Lymph # (Auto) 3.0 [place] # (Auto) 0.8 Eos # (Auto) 2.8 H Baso # (Auto) 0.1 Abs Immat Gran (auto) 0.11 H Neutrophils % (Manual) Band Neutrophils % Lymphocytes % (Manual) Reactive Lymphs % Monocytes % (Manual) Eosinophils % (Manual) Metamyelocytes % Neutrophils # (Manual) Band Neutrophils # Lymphocytes # (Manual) Abs React Lymphs (Man) Monocytes # (Manual) Eosinophils # (Manual) Metamyelocytes # Polychromasia Poikilocytosis Anisocytosis Tear Drop Cells Ovalocytes [place] Cells RBC Morph Comment INR APTT Turbidity < 20 Sodium 142 Potassium 4.2 Chloride 113 H Carbon Dioxide 19 L Anion Gap 10 BUN 39.0 H Creatinine 2.3 H Estimated Creat Clear 24 GFR Calculation 21 BUN/Creatinine Ratio 17 Glucose 123 H Glucometer 151 Calculated Osmolality 283 H Calcium 8.4 Phosphorus Magnesium Total Bilirubin Icterus Index < 2 AST ALT Alkaline Phosphatase Troponin I NT-Pro-B Natriuret Pep Total Protein Albumin Globulin Albumin/Globulin Ratio Plasma Lactate TSH Specimen Hemolysis < 15 Ur Collection Type Urine Color Urine Clarity Urine pH Ur Specific [place] Urine Protein Urine Glucose (UA) Urine Ketones Urine Occult Blood Urine Nitrate Urine Bilirubin Urine Urobilinogen Ur Leukocyte Esterase Urine RBC Urine WBC Urine WBC Clumps Ur Squamous Epith Cells Amorphous Sediment Urine Bacteria Ur Culture Indicated? Stl Cyclospora species Stool Rotavirus A PCR Stool Adenovirus (PCR) Stool Astrovirus (PCR) Stool Campylobacter PCR Stl C.difficile Tox PCR Stool Cryptosporidium PCR Stl E.coli Shiga Toxins Stl Enterotoxigenic E PCR Stool EPEC (PCR) Stool EAEC (PCR) Stool Entamoeba (PCR) Stool Giardia Lamblia PCR Stool Salmonella PCR Stool Sapovirus (PCR) Stl P. shigelloides PCR Stl Shigella/EIEC PCR St Y.enterocolitica PCR Stool Vibrio (PCR) Stl Vibrio cholera PCR Stl Norovirus GI/GII PCR 06/29/18 06:40 WBC RBC Hgb Hct MCV MCH MCHC RDW Std Deviation Plt Count MPV Immature Gran % (Auto) Neut % (Auto) Lymph % (Auto) [place] % (Auto) Eos % (Auto) Baso % (Auto) Neut # (Auto) Lymph # (Auto) [place] # (Auto) Eos # (Auto) Baso # (Auto) Abs Immat Gran (auto) Neutrophils % (Manual) Band Neutrophils % Lymphocytes % (Manual) Reactive Lymphs % Monocytes % (Manual) Eosinophils % (Manual) Metamyelocytes % Neutrophils # (Manual) Band Neutrophils # Lymphocytes # (Manual) Abs React Lymphs (Man) Monocytes # (Manual) Eosinophils # (Manual) Metamyelocytes # Polychromasia Poikilocytosis Anisocytosis Tear Drop Cells Ovalocytes [place] Cells RBC Morph Comment INR APTT Turbidity Sodium Potassium Chloride Carbon Dioxide Anion Gap BUN Creatinine Estimated Creat Clear GFR Calculation BUN/Creatinine Ratio Glucose Glucometer 153 Calculated Osmolality Calcium Phosphorus Magnesium Total Bilirubin Icterus Index AST ALT Alkaline Phosphatase Troponin I NT-Pro-B Natriuret Pep Total Protein Albumin Globulin Albumin/Globulin Ratio Plasma Lactate TSH Specimen Hemolysis Ur Collection Type Urine Color Urine Clarity Urine pH Ur Specific [place] Urine Protein Urine Glucose (UA) Urine Ketones Urine Occult Blood Urine Nitrate Urine Bilirubin Urine Urobilinogen Ur Leukocyte Esterase Urine RBC Urine WBC Urine WBC Clumps Ur Squamous Epith Cells Amorphous Sediment Urine Bacteria Ur Culture Indicated? Stl Cyclospora species Stool Rotavirus A PCR Stool Adenovirus (PCR) Stool Astrovirus (PCR) Stool Campylobacter PCR Stl C.difficile Tox PCR Stool Cryptosporidium PCR Stl E.coli Shiga Toxins Stl Enterotoxigenic E PCR Stool EPEC (PCR) Stool EAEC (PCR) Stool Entamoeba (PCR) Stool Giardia Lamblia PCR Stool Salmonella PCR Stool Sapovirus (PCR) Stl P. shigelloides PCR Stl Shigella/EIEC PCR St Y.enterocolitica PCR Stool Vibrio (PCR) Stl Vibrio cholera PCR Stl Norovirus GI/GII PCR - Microbiology Microbiology 06/23/18 09:04 Peripheral/Iv Start Blood Culture - Final No Growth After 5 Days 06/23/18 09:06 Peripheral/Iv Start Blood Culture - Final No Growth After 5 Days 06/24/18 03:42 Not Provided Urine Culture - Final Enterobacter aerogenes SENSITIVITY Amoxicllin/Ca R Cefazolin R Cefepime S Ceftriaxone S Ciprofloxacin S Gentamincin S Levofloxacin S Nitrofurantoin I Piperacillin/Tazo S Tobramycin S Trimethoprim/Sulfam S - Radiology Radiology: Date of Exam: 06/23/18 Type of Exam(s): XR chest 1V Reason for Exam(s): gen. weakness Indication: gen. weakness PROCEDURE: XR chest 1V: Encounter: Initial Comparison: June 01, 2018 FINDINGS: The lungs are clear. There is no abnormal airspace opacity, pleural effusion or pneumothorax identified. The heart size, pulmonary vasculature and mediastinum are within normal limits. No significant skeletal abnormality is seen. IMPRESSION: No acute cardiopulmonary abnormality. - Date of Exam: 06/24/18 Type of Exam(s): XR chest 2V Reason for Exam(s): leukocytosis, weakness INDICATION: leukocytosis, weakness PROCEDURE: CHEST 2-VIEWS UPRIGHT (PA & LAT) Encounter: Initial COMPARISON: June 23, 2018 FINDINGS: The lungs are clear without evidence of focal abnormal airspace opacity. There is no pleural effusion or pneumothorax. The heart size, mediastinal contours and pulmonary vascularity are within normal limits. There is no significant skeletal abnormality. IMPRESSION: No acute cardiopulmonary disease. Date of Exam: 06/24/18 Type of Exam(s): US renal BI Reason for Exam(s): JOHAN Indication: JOHAN PROCEDURE: US renal BI: Encounter: Initial Comparison: None Technique: Grayscale and color Doppler sonographic imaging of both kidneys was performed. FINDINGS: Both kidneys are present with normal cortical thickness and echogenicity. No evidence for collecting system dilatation, contour deforming mass, nephrolithiasis, or abnormal perinephric fluid collection. The right kidney measures 12.1 cm in length, and the left kidney measures 10.5 cm in length. 1.2 cm right renal cyst with a single small septation. 2.8 cm benign-appearing left renal cyst. IMPRESSION: No hydronephrosis. Date of Exam: 06/24/18 Type of Exam(s): CT abdomen pelvis wo con Reason for Exam(s): Leukocytosis Indication: Leukocytosis PROCEDURE: CT abdomen pelvis wo con: Encounter: Initial Comparison: None Technique: Axial CT images were performed through the abdomen and pelvis without intravenous contrast. Coronal and sagittal two-dimensional reformats. Automated Exposure Control and Iterative Reconstruction dose reducing techniques were utilized. Findings: The lung bases are clear. The unenhanced contours of the liver are unremarkable. The gallbladder is surgically absent. The spleen appears normal. The pancreas and adrenal glands are normal. Bilateral renal cysts. No renal or ureteral stone disease. The bladder is normal. Uterus is normal for age. No bowel obstruction. There is mild hazy stranding seen in the right lower quadrant mesentery with small mesenteric nodes present. The appendix appears normal. Bone windows show no acute findings. Impression: Mild mesenteric inflammation could represent a gastroenteritis or mesenteric panniculitis. No other acute disease process seen. Date of Exam: 06/26/18 Type of Exam(s): CT sinus wo con Reason for Exam(s): Leukocytosis - chonic sinus problems; exclude sinusitis Indication: Leukocytosis - chronic sinus problems; exclude sinusitis PROCEDURE: CT sinus wo con: Encounter: Initial Comparison: None Technique: Axial CT images were performed through the sinuses without intravenous contrast. Coronal and sagittal two-dimensional reformats. Automated Exposure Control and Iterative Reconstruction dose reducing techniques were utilized. Findings: The paranasal sinuses are clear. No mucosal thickening or mucous retention cyst identified. The sphenoid ostia are widely patent. The left ostiomeatal unit is patent. The right ostiomeatal unit is mildly narrowed by mucosal thickening. Mild rightward nasal septal spurring. No significant nasal septal deviation. The mastoid air cells and middle ear cavities are clear. Impression: Negative sinus CT. History of Present Illness HPI: Meka Burgess is a very pleasant 73-year-old patient of Dr. Richmond who currently resides at [facility]. She is known to the hospitalist service from her recent admission on 05/29/18 for sepsis secondary to UTI. She was discharged to [facility] on 06/04/18 for continued rehabilitation with the plan to eventually return home where she lives independently. She reports that for the first few days following her discharge from [facility] she did well. For the past "several days", she has "generally not felt well". Family reports that she has become so weak generally that she required use of her wheelchair to use the bathroom today. She is unable to express any acute concerns or complaints. She routinely has her labs drawn on Thursday and and states that her hemoglobin has been variable, trending down and her BUN and creatine have been trending up. She also admits to low grade fevers around 99 with decreased appetite and decreased urinary output. She denies any chest pain, shortness of breath, abdominal pain or dysuria. On , she reports that she was started on Victoza and shortly after began having nausea with diarrhea. Her daughter, Maureen, whom is a nurse and is present on exam , contributes to the history, and reports that initially the Victoza was placed on hold with resolution of the diarrhea and symptoms. The Victoza was resumed 2 days ago and Maureen reports that Meka had 4 bouts of diarrhea last night, the last one with obvious bright red blood in the stools. Due to her progressive weakness, fatigue and diarrhea, she was brought to [facility] for further evaluation. Upon arrival, she was noted to be afebrile (T 97.4) with stable vital signs. Labs revealed leukocytosis (WBC 28.2) and elevated BUN and SCr at 67 and 3.1 respectively. TSH was also noted to be elevated at 12.40. She has a known history of hypothyroid and TSH on 04/23/18 was normal at 3.44. Review of her medications indicates that her levothyroxine was recently increased to 88 mcg on 06/05/18. UA revealed 1-3 WBC with few WBC clumps and 1+ bacteria. Culture from UA obtained at senior care on 06/22/18 was positive for 50-100K gram negative bacilli per family. Due to her generalized weakness and fatigue with leukocytosis and acute kidney injury, Dr. Carrasco was consulted and she was accepted into observation status for further evaluation and treatment. During her prior hospitalization from 05/29/18-06/04/18, she was treated for sepsis secondary to an UTI that was found to be pansensitive E.coli. She was treated with Rocephin x 6 days, followed by 1 dose of Levaquin and discharged home on Augmentin 250mg BID x 2 weeks. Her treatment course of the Augmentin was complete on 06/18/18. Also during her recent hospitalization, she was noted to have an acute kidney injury with a max serum creatine at 3.8 which improved to 2.6 prior to discharge. She has a known history of chronic kidney disease, stage III. Creatine prior to 05/29/18 was around 1.7 with GFR around 30. She follows with Dr. King, nephrology in [place]. Objective Vital signs: Temperature 97.3 F 06/29/18 12:00 Pulse Rate 81 06/29/18 12:00 Respiratory Rate 16 06/29/18 12:00 Blood Pressure 128/67 06/29/18 12:00 Pulse Oximetry 98 06/29/18 12:00 Height/Weight/BMI: Height 5 ft 1 in Weight 222 lb 7.143 oz Body Mass Index 40.9 Hospital Course This is a general summary of the patient's hospital course. For more details refer to the complete medical record. Hospital course: 06/23/18 Admit to observation status under the care of Dr. Carrasco. [facility] Monitor closely on telemetry given increased fatigue and history of a-fib. EKG in ED revealed rate controlled a-fib. Continue home amiodarone and Coreg. Patient reports she was seen by Dr. King last week and her Norvasc which was initiated during her previous hospitalization was discontinued due to poor renal function. Will obtain renal ultrasound given JOHAN in AM. Stool sample obtained was negative. Based on history, diarrhea most likely secondary to initiation of Victoza. Will hold Victoza. Resume home medications. Clear liquid diet. Monitor blood sugars closely. Monitor closely of signs of hypoglycemia. Will hold home lantus 40 units BID and home lispro 22 units TIDWM given clear liquid diet only. Sliding scale insulin as indicated. Urine culture pending. UA culture from senior care on 06/22/18 revealed gram negative bacilli at 50-100K. Patient recently treated for pansensitive E.coli and completed prolonged treatment on 06/18/18 with Rocephin x 6 days and levoquin x 1 dose while hospitalized and Augmentin x 2 weeks as an outpatient. Initial lactate was 1.0. Repeat lactate was elevated at 2.1. Troponin <0.012. Patient remains afebrile. Initial chest x-ray was unremarkable. Will recheck in AM as history regarding pulmonary symptoms is unclear. TSH elevated on admission. Stable in 04/2018. Dose recently increased to 88 mcg daily per patient. Recommend close follow up as outpatient. Recheck labs in AM to monitor blood counts, electrolytes and renal function. Will hold home pradaxa and plavix at this time due to reports of GI bleeding. Monitor hemoglobin. Oral Vancomycin was initiated for possible colitis. Upon discharge, patient's care will be returned to her PCP, Dr. Richmond. Patient is a FULL CODE. 06/24/18 Renal ultrasound negative for acute process- known chronic renal cysts. Continue to hold Victoza- as this may be cause of loose stools Given persistent Leukocytosis well obtain CT scan of abdomen to rule out other etiology Second Cutter slightly down at 2.9 Remains on PO Vancomycin and Culturelle. ? colitis Monitor blood sugars- Sliding scale insulin Chronic anticoagulation remains on hold. Hgb decreased from 12.1--> 9.9. Continue to monitor CT showing Mild mesenteric inflammation could represent a gastroenteritis or mesenteric panniculitis. With continued WBC, will add metronidazole for gastroenteritis. Decrease IVF to 80cc/hr. Will consult PT/OT in am to help improve strength and functional abilities. Change to inpatient admission secondary to continued leukocytosis with gastroenteritis. 06/25/18 Compression antonio wraps placed to bilateral lower ext to help with edema. Encouraged patient to leave them on during the day. Will resume home Torsemide daily for diuresis. Leukocytosis improving. Renal function continues to improve at 2.4 today. Tolerating PO intake. Monitor BP as it was elevated today. Suspect diuretics will help. Resume home Plavix and Pradaxa. Continue to follow blood sugars and SSI. Encourage work with PT/OT. 06/26/18 Continue with metronidazole for gastroenteritis with leukocytosis. Creatinine decrease to 2.3 - will decrease IVF to 50cc/hr as kidneys improving and oral drive increasing. Will start mealtime insulin at 12 units (home dose 23). Monitor sugars. Patient worries about sinusitis due to chronic drainage and now feeling more full to ears. TM look normal bilaterally. Will check CT sinuses to exclude infection. Sinuses were normal on CT done in ED at prior visit (05/29/18). Encourage activities and ambulation. 06/27/18 Gastroenteritis symptoms appear to be improved today. Continue Culturelle. Remains on IV Flagyl. Leukocytosis continues to improve - WBC 15.1 today. Can stop IVF as oral drive doing well and stool output/frequency decreased. Ct sinus report showing no pathology. Monitor blood sugars - fasting this morning 136. Encourage elevation of bilateral lower ext, Use antonio wraps for compression due to edema. 06/28/18- Continue current plan. On IV Flagyl, Leukocytosis improving. Torsemide for edema- Weight remains elevated from admission wt. Continue to BLE antonio wraps for edema. Second Cutter stable. Encourage Ambulation. Discharge in the next 1-2 days- SNU - vs-home. Gastroenteritis symptoms appear to be resolving and leukocytosis resolved. Continue Culturelle. Remains on IV Flagyl. Anticipate discharge on oral Flagyl to complete treatment course. Weight trending down. Continue on home torsemide dose. Monitor weight closely. Encourage her to ambulate QID. Anticipate discharge to [facility], hopefully today. Time spent with patient: discharge greater than 30 minutes Resuscitation Status: Full Code Discharge Plan - Discharge Disposition Discharge Date: 06/29/18 Disposition: 03 To SNU Not [facility] [place]) *Condition: Improved Reason For Visit (Visit label in EMR): gastroenteritis, leukocytosis - Discharge Medications Medication Comments: Insulin dosages adjusted: Novolog 12 units SQ 0730, 1130, 1700 - NEW Novolog 22 units TIDWM - DISCONTINUED Lantus 40 SQ BID - DISCONTINUED *Discharge Medications: New Acidoph/L.bulg/Bif.b/S.thermop [Bacid Caplet] 2 cap PO TIDWM #120 tab Insulin Aspart [NovoLOG] 12 unit SQ 0730,1130,1700 #5 vial metroNIDAZOLE [Flagyl] 500 mg PO Q8H #16 tab Continue Bismuth Subsalicylate [Kaopectate] 5 ml PO TID PRN PRN Reason: Diarrhea Tramadol [Ultram] 50 mg PO BID Acetaminophen [Acetaminophen ER] 650 mg PO Q8H PRN PRN Reason: Pain Dabigatran [Pradaxa] 75 mg PO BID Cholecalciferol (Vitamin D3) [Vitamin D3] 10,000 unit PO DAILY Carvedilol [Coreg] 3.125 mg PO BIDWM Torsemide [Demadex] 20 mg PO DAILY Pantoprazole Sodium [Protonix] 40 mg PO DAILY Peg 3350 238 G Bottle [Miralax] 17 gm PO Q2D Multivitamin [One Daily Multivitamin] 1 tab PO DAILY Levothyroxine Sodium 88 mcg PO ACB Atorvastatin Calcium 80 mg PO HS Isosorbide Mononitrate ER [Imdur] 30 mg PO DAILY Fish Oil/Dha/Epa [Fish Oil 1,200 mg Fish Oil] 1,200 mg PO DAILY Ferrous Sulfate [Iron] 325 mg PO DAILY Amiodarone HCl 200 mg PO DAILY Allopurinol [Zyloprim] 100 mg PO HS Insulin Lispro [HumaLOG] 5 unit SQ Q2H PRN PRN Reason: Hypoglycemia Loperamide HCl [Loperamide] 2 mg PO QID PRN PRN Reason: Diarrhea Clopidogrel Bisulfate [Clopidogrel] 75 mg PO DAILY Loratadine [Claritin] 10 mg PO DAILY Discontinued Insulin Lispro [HumaLOG] 22 unit SQ TIDWM Insulin Glargine [Lantus] 40 unit SQ BID - Discharge Packet/Instructions *Diet: Carb consistent diet with 2000 kcal/day. *Activity: As tolerated. Encourage to ambulate as much as able, with assistance near by as able. *Pain Management/Treatment: Tylenol 650mg every 5 hours as needed for pain. May resume home Ultram as directed as indicated. *Wound Care: None. Additional Instructions: Continue Flagyl orally every 8 hours until complete on 07/04/18. 1st dose to be given tonight, 06/29/18, at 1730. Insulin medications have been adjusted from home dosages. Monitor blood sugars closely. Monitor closely for signs of hypoglycemia. TSH was elevated at 12.40 on 06/23/18. Recommend outpatient follow up. Monitor daily weight closely. Weight on discharge was 222lb. *Expected Signs/Symptoms: Gradual improvment. *Notify Physician if: fever, change or worsening in condition. *During Business Hours Contact: your primary provider *After Business Hours Contact: the on-call physician for your primary provider *Pending Lab/Results: No Pending Lab - Referrals/Follow Up *Referrals/Follow Up: Crow Richmond MD [Primary Care Provider] - 1 Week (call to schedule) - Patient Handouts Patient Handouts: Dehydration (GEN), Gastroenteritis (ED), Enteritis (ED) - Dismissal Complete Discharge Instructions are:: Complete Physician Narrative - Narrative Physician: Vickey Jacobo MD Attestation Narrative: Date: 06/29/18 Time: 1342 I have independently interviewed and examined patient. Patient chart reviewed. Case discussed with my PA. Care plan developed with my supervision, agree with above. A pleasant 73-year-old female patient admitted with complaints of not feeling well with complaints of diarrhea. Status post recent hospitalization for sepsis secondary to Escherichia coli UTI. Patient started having symptoms of nausea and diarrhea after starting Victoza medication. CT scan of abdomen and pelvis was ordered after patient noted to have tenderness to palpation, showed evidence of gastroenteritis versus mesenteric panniculitis. Patient had significant leukocytosis on admission with WBC count 28.2 on admission which has improved to 11 at the time of discharge. Symptoms of abdominal discomfort, diarrhea have resolved prior to discharge. Patient started on oral vancomycin at the time of admission, later switched to IV Flagyl. CT scan results available. Patient will be discharged to complete 10 day course of Flagyl. Patient will also be on 5 day course of oral Keflex. Urine culture grew out more than 100,000 CFU/ml Enterobacter aerogenes. On the day of discharge, patient is resting in bed, no reported abdominal discomfort, no diarrhea, no subjective fever, no chills, no increased sweating. Patient will be discharged to [facility]. Physical exam: AAO x 3, NAD PERRLA, EOMI S1 and S2 heard on auscultation, no murmurs Lungs clear to auscultation bilaterally, no wheezing, no crackles Abdomen soft, nontender, positive bowel sounds No edema bilateral lower extremities.
--- NOTE | 2018-06-29 14:13 | Extended Care Facility Orders ---
Admission Orders Admit to:: Retirement Allergies/Adverse Reactions: Allergies fenofibrate [From Tricor] Allergy (Verified 06/23/18 09:20) metformin Allergy (Verified 06/23/18 09:20) feathers Adverse Reaction (Mild, Verified 06/23/18 09:20) Headache acyclovir Adverse Reaction (Verified 06/23/18 09:20) cat dander Adverse Reaction (Verified 06/23/18 09:20) wilda Adverse Reaction (Verified 06/23/18 09:20) pioglitazone Adverse Reaction (Verified 06/23/18 09:20) Admitting Diagnosis: gastroenteritis, leukocytosis Admitting Physician: Usman Carrasco MD Attending Physician: Vickey Jacobo MD Code Status: Full Code Rehab Potential: fair Rehab Prognosis: fair Diet: 06/24/18 Dinner Consistent Carbohydrate Diet [DIET] Calorie Level: 2000 Evaluations/Treatment: PT, OT Retirement Certification: I certify that SNF services are required to be given on an inpatient basis because of the patient's need for senior care care on a continuing basis for the condition(s) for which he/she received inpatient hospital services prior to his/her transfer to the SNF. SNF inpatient care is necessary for the following reasons: - Additional Information In Event of Arrest: Start CPR,call 911,send patient to the ER Resident is Aware of Diagnosis: Yes Referrals: Crow Richmond MD [Primary Care Provider] - 1 Week (call to schedule)
== END 2018-06-29 14:10 | DRG 392 ==
LOC: ED 07:57 → MED 07:57 → SUATTDRO 06-24 17:23
PROVIDERS: ADMIT Hospitalist; ATTEND Internal Medicine